=== PATIENT | male | born 1930 | race Caucasian/White ===

== ENCOUNTER 2017-06-09 17:58 | Inpatient (IN) | payer OTHER ==
[2017-06-09 18:37] LABS: Absolute Lymphocytes (CBC) 0.7 K/uL (0.7-4.9); Absolute Monocytes 0.9 K/uL (0.1-1.3); Absolute Neutrophil 4.8 K/uL (1.8-8.0); Basophils % 0.7 % (0-1.3); Eosinophils % 4.9 % (0-4.4); Hematocrit 41.9 % (39.6-49.0); MCH 31.1 pg (27.0-35.0); MCV 93.3 fL (80-100); MPV 9.9 fL (7.6-11.3); Monocytes % 12.8 % (3.3-12.3); RBC Red Blood Cell Count 4.49 M/uL (4.33-5.43)
[2017-06-09 18:38] LABS: Protime INR 1.23
[2017-06-09] MEDS ORDERED: NA CHLORIDE 0.9% 1,000 ML ONE ×2 (18:38→19:58)
[2017-06-09 18:50] LABS: Potassium 3.8 mEq/L (3.6-5.0)
[2017-06-09 18:56] LABS: Albumin 3.4 g/dL (3.2-5.5); Bilirubin Direct 0.3 mg/dL (0-0.2); Magnesium 2.8 mg/dL (1.8-2.5); Protein, Total 6.6 g/dL (6.0-8.3)
[2017-06-09 18:59] LABS: CKMB Creatine Kinase MB 3.5 ng/ml (0.3-4.0)
[2017-06-09] MEDS ORDERED: NALOXONE 0.4 MG/ML VIAL ONE (19:01)
[2017-06-09 19:28] LABS: Arterial Blood Carboxyhemoglob 1.2 % (0-1.5); Blood Gas Oxyhemoglobin 94.3 % (94-97); Blood O2 Saturation 95.8 % (92-98.5)
[2017-06-09 19:50] LABS: C-Reactive Protein 132.4 mg/L (<10.0)
[2017-06-09] MEDS ORDERED: LIDOCAINE VISCOUS 2% SOLN 15 ML UDC ONE (19:51)
--- NOTE | 2017-06-09 19:56 | RAD REPORT ---
EXAM DESCRIPTION: RAD - Chest Single View - 06/09/2017 7:41 pm CLINICAL HISTORY: Cough, shortness of breath COMPARISON: March 2016 TECHNIQUE: AP portable chest image was obtained 1930 hours . FINDINGS: Interstitial and alveolar opacification are present in the lower right lung field with min imal opacification in the right upper lobe. Upper and mid left lung field is clear. Left base is limi fermin in assessment. No vascular engorgement. Heart size is prominent. This is in part due to differenc es in technique. Defibrillator is in place. Trachea is midline. No pneumothorax. Small pleural effusi ons could be present. No gross bony abnormality seen. No acute aortic findings suspected. IMPRESSION: Moderate right brace in mild right upper lobe opacification. Pneumonia is favored over f ailure or volume overload.
[2017-06-09] MEDS ORDERED: NA CHLORIDE 0.9% 50 ML IV ONE (19:58)
[2017-06-09] MEDS ORDERED: HYDROCORTISONE SUC 100 MG INJ ONE (19:58)
[2017-06-09] MEDS ORDERED: THIAMINE 200 MG/2 ML INJ ONE (19:58)
[2017-06-09] MEDS ORDERED: NA CHLORIDE 0.9% 500 ML ONE (19:58)
[2017-06-09] MEDS ORDERED: FAMOTIDINE 20 MG/2 ML VIAL IV ONE (19:58)
[2017-06-09] MEDS ORDERED: CEFEPIME 1 GM/100 ML BAG IV ONE ×2 (19:59→20:36)
--- NOTE | 2017-06-09 20:08 | EDPHYS ---
Physician Documentation [facility] Name: Jaden Kidd Age: 87 yrs Sex: Male : 1930 Arrival Date: 06/09/2017 Time: 17:59 Bed 5 Private MD: Autumn Vera C ED Physician Sathish Chaney HPI: 06/09 19:22 This 87 yrs old Male presents to ER via Wheelchair with complaints of sherrill Dehydration. 19:22 WEAKNESS AND ANOREXIA. The patient presents with trouble concentrating. Onset: The sherrill symptoms/episode began/occurred 2 day(s) ago. Possible causes: drug use, narcotics, sepsis, unknown. Associated signs and symptoms: Pertinent positives: agitation, back pain, combativeness, confusion, lightheadedness. Current symptoms: In the emergency department the patient's symptoms are unchanged from the initial presentation. Patient's baseline: Neuro: alert and fully oriented, Motor: no deficits, Ambulation: walks without assistance. Severity of symptoms: At their worst the symptoms were mild moderate in the emergency department the symptoms are unchanged. Historical: - Allergies: 18:20 PENICILLINS; ss 18:20 Iodine; ss - Home Meds: 18:26 furosemide 80 mg Oral tab 1 tab once daily [Active]; metolazone 5 mg oral tab 1 tab ss once weekly [Active]; simvastatin 20 mg Oral tab 1 tab once daily [Active]; Xarelto 15 mg oral tab nightly [Active]; 18:27 Entresto 49-51 mg oral tab 1 tab 2 times per day [Active]; gabapentin 800 mg oral tab 1 ss tab 3 times per day [Active]; tramadol 50 mg Oral tab 1 tab every 6 hours [Active]; hydrocodone [Active]; - PMHx: 18:20 Myocardial infarction; CHF; macular degeneration; ss - PSHx: 18:20 Hernia repair; cardiac stent; prostatectomy; ss - Immunization history:: Adult Immunizations up to date. - Social history:: Smoking status: Patient/guardian denies using tobacco, the patient reports quitting approximately 20 years ago. - Family history:: not pertinent. ROS: 19:22 Eyes: Negative for injury, pain, redness, and discharge, ENT: Negative for injury, sherrill pain, and discharge, Neck: Negative for injury, pain, and swelling, Cardiovascular: Negative for chest pain, palpitations, and edema, : Negative for injury, bleeding, discharge, and swelling, MS/Extremity: Negative for injury and deformity, Skin: Negative for injury, rash, and discoloration, Psych: Negative for depression, anxiety, suicide ideation, homicidal ideation, and hallucinations, Allergy/Immunology: Negative for hives, rash, and allergies, Endocrine: Negative for neck swelling, polydipsia, polyuria, polyphagia, and marked weight changes. 19:22 Respiratory: Positive for cough, shortness of breath. 19:22 Abdomen/GI: Positive for nausea, anorexia. 19:22 Back: Positive for pain at rest, pain with movement. Exam: 19:22 Constitutional: This is a well developed, well nourished patient who is awake, alert, sherrill and in no acute distress. Head/Face: Normocephalic, atraumatic. Eyes: Pupils equal round and reactive to light, extra-ocular motions intact. Lids and lashes normal. Conjunctiva and sclera are non-icteric and not injected. Cornea within normal limits. Periorbital areas with no swelling, redness, or edema. ENT: Nares patent. No nasal discharge, no septal abnormalities noted. Tympanic membranes are normal and external auditory canals are clear. Oropharynx with no redness, swelling, or masses, exudates, or evidence of obstruction, uvula midline. Mucous membranes moist. Neck: Trachea midline, no thyromegaly or masses palpated, and no cervical lymphadenopathy. Supple, full range of motion without nuchal rigidity, or vertebral point tenderness. No Meningismus. Chest/axilla: Normal chest wall appearance and motion. Nontender with no deformity. No lesions are appreciated. Abdomen/GI: Soft, non-tender, with normal bowel sounds. No distension or tympany. No guarding or rebound. No evidence of tenderness throughout. Back: No spinal tenderness. No costovertebral tenderness. Full range of motion. Male : Normal genitalia with no discharge or lesions. Skin: Warm, dry with normal turgor. Normal color with no rashes, no lesions, and no evidence of cellulitis. MS/ Extremity: Pulses equal, no cyanosis. Neurovascular intact. Full, normal range of motion. Psych: Awake, alert, with orientation to person, place and time. Behavior, mood, and affect are within normal limits. 19:22 Cardiovascular: Rate: normal, Rhythm: irregular, Pulses: Pulses are 3+ in bilateral radial, brachial, femoral, popliteal, posterior tibial and and dorsalis pedis arteries.. 19:22 Respiratory: mild respiratory distress is noted, Respirations: labored breathing, that is mild, Breath sounds: decreased breath sounds, that are mild, Respiratory rate: 24 Vital Signs: 18:05 BP 82 / 43; Pulse 69; Resp 19; Temp 97.6(O); Pulse Ox 89% on R/A; Weight 83.91 kg; sv Height 5 ft. 8 in. (172.72 cm); Pain 0/10; 18:15 BP 78 / 48; Pulse 74; Resp 15; Pulse Ox 91% ; sv 18:22 Pulse Ox 91% on R/A; sv 18:26 BP 80 / 45; Pulse 71; Resp 19; Pulse Ox 93% on 3.5 lpm NC; sv 18:38 Pulse Ox 92% on 35% Venturi mask; sv 18:40 Pulse Ox 91% on 40% Venturi mask; sv 18:41 BP 94 / 55; Pulse 66; Resp 21; Pulse Ox 99% on 40% Venturi mask; sv 20:25 BP 122 / 55; Pulse 70; Resp 24; Pulse Ox 100% on Nebulizer Mask; ak1 20:25 BP 92 / 58; Pulse 70; Resp 20; Temp 98.4(A); Pulse Ox 100% on Nebulizer Mask; ak1 21:10 BP 95 / 46; Pulse 70; Resp 20; Pulse Ox 94% on 10% Venturi mask; ak1 21:39 BP 106 / 72; Pulse 69; Resp 20; Temp 98.4(A); Pulse Ox 94% on 10% Venturi mask40%; Pain ak1 0/10; 18:05 Body Mass Index 28.13 (83.91 kg, 172.72 cm) sv 18:[address] Beck of vitals. NS 1 L bolus order received. Dr Beck informed of hx of sv CHF. 18:[address] on O \T\ 3.5 L per NC. O 2 sat up to 93%. sv MDM: 18:20 Patient medically screened. gs 19:12 Patient medically screened. sherrill 19:27 Data reviewed: vital signs, nurses notes, lab test result(s), EKG, radiologic studies, sherrill CT scan, plain films. 06/09 18:20 Order name: Basic Metabolic Panel; Complete Time: 19: 06/09 18:20 Order name: BNP; Complete Time: 19: 06/09 18:20 Order name: CBC with Diff; Complete Time: : 06/09 18:20 Order name: Ckmb; Complete Time: : 06/09 18:20 Order name: CPK; Complete Time: : 06/09 18:20 Order name: LFT's; Complete Time: : 06/09 18:20 Order name: Magnesium; Complete Time: : 06/09 18:20 Order name: PT-INR; Complete Time: : 06/09 18:20 Order name: Troponin (emerg Dept Use Only); Complete Time: : 06/09 19:06 Order name: ABG; Complete Time: 20: 06/09 19:21 Order name: Amylase, Serum; Complete Time: 20: [facility] 06/09 19:21 Order name: Blood Culture Adult (2) [facility] 06/09 19:21 Order name: C-Reactive Protein; Complete Time: 20:01 [facility] 06/09 19:21 Order name: Lactate [facility] 06/09 18:20 Order name: CT Traumagram (Head C Spine CAP wo con) 06/09 19:21 Order name: Lipase; Complete Time: 20:01 [facility] 06/09 19:21 Order name: Procalcitonin; Complete Time: 20:01 [facility] 06/09 19:21 Order name: Ptt, Activated; Complete Time: 20:01 [facility] 06/09 19:21 Order name: Sed Rate; Complete Time: 20:01 [facility] 06/09 19:21 Order name: Chest Single View XRAY; Complete Time: 20:01 [facility] 06/09 20:51 Order name: Urine Dipstick--Ancillary (enter results) cb2 06/09 20:57 Order name: Urine Dipstick-Ancillary EDMS 06/09 18:20 Order name: EKG; Complete Time: 18:20 06/09 18:20 Order name: Cardiac monitoring; Complete Time: 18:47 06/09 18:20 Order name: EKG - Nurse/Tech; Complete Time: 18:47 06/09 18:20 Order name: IV Saline Lock; Complete Time: 18:47 06/09 18:20 Order name: Labs collected and sent; Complete Time: 18:47 06/09 18:20 Order name: O2 Per Protocol; Complete Time: 18:47 06/09 18:20 Order name: O2 Sat Monitoring; Complete Time: 18:47 06/09 18:20 Order name: Urine Dipstick-Ancillary (obtain specimen); Complete Time: 20:51 06/09 19:06 Order name: Burton; Complete Time: 20:04 06/09 19:21 Order name: Accucheck; Complete Time: 19:24 [facility] 06/09 19:21 Order name: IV Saline Lock - Large Bore; Complete Time: 19:22 [facility] 06/09 20:16 Order name: CONS Physician Consult EDMS 06/09 20:16 Order name: CONS Physician Consult EDMS Administered Medications: Discontinued: NS 0.9% 1000 ml IV at 1 bolus Per protocol; 1000 mL bolus 18:22 Drug: NS 0.9% 1000 ml Route: IV; Rate: 1 bolus; Site: left forearm; sv 19:17 Follow up: IV Status: Completed infusion ak1 18:44 Drug: NARcan 0.4 mg Route: IVP; Site: right forearm; sv 19:16 Follow up: Response: No adverse reaction; No adverse reactionpt alert and talking ak1 19:36 Drug: Viscous Lidocaine Liquid (4 %) 5 ml Route: Mucous Membrane; ak1 19:52 Drug: Thiamine 100 mg Route: IV; Rate: bolus; Site: left antecubital; ak1 20:02 Follow up: Rate change bolus ak1 20:39 Follow up: IV Status: Completed infusion ak1 19:53 Drug: Solu-CORTEF 100 mg Route: IVP; Site: left antecubital; ak1 20:02 Follow up: Response: No adverse reaction ak1 19:53 Drug: Pepcid 20 mg Route: IVP; Site: left antecubital; ak1 20:02 Follow up: Response: No adverse reaction ak1 19:53 Drug: NS 0.9% 1000 ml Route: IV; Rate: 1 bolus; Site: left antecubital; ak1 22:21 Follow up: IV Status: Order to discontinue infusion ak1 20:39 Drug: NS 0.9% 1000 ml Route: IV; Rate: 125 ml/hr; Site: left antecubital; ak1 21:37 Follow up: IV Status: Infusion continued upon admission ak1 :39 Drug: Xopenex 1.25 mg Route: Inhalation; ak1 21: Follow up: Response: No adverse reaction ak1 20:39 Drug: AtroVENT Aerosol 0.5 mg Route: Inhalation; ak1 21:02 Follow up: Response: No adverse reaction ak1 20:40 Drug: Cefepime 1 grams Route: IVPB; Rate: 200 ml/hr; Infused Over: 30 mins; Site: left ak1 antecubital; 21:08 Follow up: IV Status: Completed infusion ak1 20:40 Drug: Clindamycin 900 mg Route: IVPB; Infused Over: 30 mins; Site: right forearm; ak1 :37 Follow up: IV Status: Completed infusion ak1 20:40 Drug: Cefepime 1 grams Route: IVPB; Rate: 200 ml/hr; Infused Over: 30 mins; Site: left [facility] antecubital; 21:07 Follow up: IV Status: Completed infusion ak1 Point of Care Testing: Blood Glucose: 18:45 Blood Glucose: 124 mg/dL; sv Ranges: Critical Glucose Levels:Adult <50 mg/dl or >400 mg/dl <40 mg/dl or >180 mg/dl Disposition: 06/09/17 20:07 Hospitalization ordered by Leandro Pickett for Inpatient Admission. Preliminary diagnosis are Pneumonia due to other specified bacteria, Hypotension, Acute kidney failure, Cardiomegaly. - Bed requested for Intensive Care Unit. - Status is Inpatient Admission. ea - Condition is Serious. - Problem is new. - Symptoms are unchanged. UTI on Admission? No Signatures: Dispatcher [employer] Franny Rojas RN RN sv Webb, Martha, RN RN mw Anderson, Corey, MD MD cha Smirch, Shelby, RN RN ss Krenek, Amber, RN RN ak1 Lora Tipton RN RN ea Starr, Gregory, MD MD
--- NOTE | 2017-06-09 20:08 | ER ---
Nurse's Notes [facility] Name: Jaden Kidd Age: 87 yrs Sex: Male : 1930 Arrival Date: 06/09/2017 Time: 17:59 Bed 5 Private MD: Autumn Vera C Diagnosis: Pneumonia due to other specified bacteria;Hypotension;Acute kidney failure;Cardiomegaly Presentation: 06/09 18:00 Presenting complaint: Patient states: Decreased appetite, general weakness and overall ss not feeling well x 3 days. Transition of care: patient was not received from another setting of care. Onset of symptoms was June 06, 2017. Care prior to arrival: None. 18:00 Method Of Arrival: Wheelchair ss 18:00 Acuity: YUDI 2 ss Triage Assessment: 18:00 General: Appears uncomfortable, slender, Behavior is cooperative, drowsy, lethargic. sv Pain: Denies pain. EENT: Oral mucosa is dry. Neuro: Level of Consciousness is obeys commands, confused, lethargic, Oriented to person, place. Cardiovascular: Patient's skin is warm and dry. Pulses are 3+ in right radial artery and left radial artery Rhythm is paced. Cardiovascular: Denies chest pain. Respiratory: Airway is patent Respiratory effort is even, relaxed, Respiratory pattern is regular, symmetrical, Denies shortness of breath. GI: No signs and/or symptoms were reported involving the gastrointestinal system. : No signs and/or symptoms were reported regarding the genitourinary system. Derm: Skin is intact, Skin is dry, Skin is normal, Skin temperature is cool. Historical: - Allergies: 18:20 PENICILLINS; ss 18:20 Iodine; ss - Home Meds: 18:26 furosemide 80 mg Oral tab 1 tab once daily [Active]; metolazone 5 mg oral tab 1 tab ss once weekly [Active]; simvastatin 20 mg Oral tab 1 tab once daily [Active]; Xarelto 15 mg oral tab nightly [Active]; 18:27 Entresto 49-51 mg oral tab 1 tab 2 times per day [Active]; gabapentin 800 mg oral tab 1 ss tab 3 times per day [Active]; tramadol 50 mg Oral tab 1 tab every 6 hours [Active]; hydrocodone [Active]; - PMHx: 18:20 Myocardial infarction; CHF; macular degeneration; ss - PSHx: 18:20 Hernia repair; cardiac stent; prostatectomy; ss - Immunization history:: Adult Immunizations up to date. - Social history:: Smoking status: Patient/guardian denies using tobacco, the patient reports quitting approximately 20 years ago. - Family history:: not pertinent. Screenin:51 Abuse screen: Denies threats or abuse. Denies injuries from another. Nutritional sv screening: No deficits noted. Tuberculosis screening: No symptoms or risk factors identified. Fall Risk None identified. Assessment: 18:22 Reassessment: Pt placed in Trendelenburg. sv 18:55 General: Appears in no apparent distress. uncomfortable, Behavior is cooperative, sv agitated. Pain: Complains of pain in back Pain currently is 8 out of 10 on a pain scale. Neuro: Level of Consciousness is awake, alert, obeys commands, Oriented to person, place, time, situation. Cardiovascular: Patient's skin is warm and dry. Respiratory: Respiratory effort is even, unlabored, Respiratory pattern is symmetrical, tachypnea. 19:17 Reassessment: Patient appears in no apparent distress at this time. No changes from ak1 previously documented assessment. pt continues to be agitated due to lower back pain. 20:59 Reassessment: Patient appears in no apparent distress at this time. pt returned from CT ak1 more comfortable, not restless and moving his legs. pt and family informed of need for admission. pt neb treatment completed and pt placed back on venti mask at 40%. pt resp even and unlabored. Dr. Torres at bedside. will continue to monitor. Vital Signs: 18:05 BP 82 / 43; Pulse 69; Resp 19; Temp 97.6(O); Pulse Ox 89% on R/A; Weight 83.91 kg; sv Height 5 ft. 8 in. (172.72 cm); Pain 0/10; 18:15 BP 78 / 48; Pulse 74; Resp 15; Pulse Ox 91% ; sv 18:22 Pulse Ox 91% on R/A; sv 18:26 BP 80 / 45; Pulse 71; Resp 19; Pulse Ox 93% on 3.5 lpm NC; sv 18:38 Pulse Ox 92% on 35% Venturi mask; sv 18:40 Pulse Ox 91% on 40% Venturi mask; sv 18:41 BP 94 / 55; Pulse 66; Resp 21; Pulse Ox 99% on 40% Venturi mask; sv 20:25 BP 122 / 55; Pulse 70; Resp 24; Pulse Ox 100% on Nebulizer Mask; ak1 20:25 BP 92 / 58; Pulse 70; Resp 20; Temp 98.4(A); Pulse Ox 100% on Nebulizer Mask; ak1 21:10 BP 95 / 46; Pulse 70; Resp 20; Pulse Ox 94% on 10% Venturi mask; ak1 21:39 BP 106 / 72; Pulse 69; Resp 20; Temp 98.4(A); Pulse Ox 94% on 10% Venturi mask40%; Pain ak1 0/10; 18:05 Body Mass Index 28.13 (83.91 kg, 172.72 cm) sv 18:[address] Beck of vitals. NS 1 L bolus order received. Dr Beck informed of hx of sv CHF. 18:[address] on O \T\ 3.5 L per NC. O 2 sat up to 93%. sv ED Course: 17:59 Patient arrived in ED. as 17:59 Autumn Vera MD is Private Physician. as 18:05 Franny Hernandez, CHRISTIAN is Primary Nurse. sv 18:05 residential monitor on. Pulse ox on. NIBP on. sv 18:15 Initial lab(s) drawn, by ga, sent to lab. Inserted saline lock: 20 gauge in left sv forearm, using aseptic technique. Blood collected. Flushed left forearm with 5 ml normal saline. 18:17 Triage completed. ss 18:20 Lam Beck MD is Attending Physician. gs 18:20 Arm band placed on right wrist. ss 18:25 Inserted saline lock: 18 gauge in right forearm, using aseptic technique. Flushed right sv forearm with 5 ml normal saline. 18:30 Patient has correct armband on for positive identification. Placed in gown. Bed in low sv position. Call light in reach. Side rails up X2. Adult w/ patient. 19:02 Notified ED physician of other no ERP signed up for pt care at this time. C. Page BLOWING ENGINEER ak1 stated he was not going to care for pt that on coming ERP would sign up and give orders. 19:05 Report given to Robe GONZALES and Lora RN. sv 19:06 Primary Nurse role handed off by Franny Hernandez, CHRISTIAN sv 19:12 Sathish Chaney MD is Attending Physician. sherrill 19:38 X-ray completed. Portable x-ray completed in exam room. Patient tolerated procedure ml well. 19:39 Chest Single View XRAY In Process Unspecified. EDMS 19:52 Robe Palma RN is Primary Nurse. ak1 20:00 First set of blood cultures drawn by ga. cb2 20:05 Autumn Vera MD is Hospitalizing Provider. sherrill 20:05 Burton cath inserted, using sterile technique, 16 Fr., by ga, balloon inflated, to cb2 gravity drainage. 20:06 Leandro Pickett MD is Hospitalizing Provider. sherrill 20:14 CT Traumagram (Head C Spine CAP wo con) In Process Unspecified. EDMS 20:14 CT completed. Patient tolerated procedure well. Patient moved to CT via stretcher. nj Patient moved back from CT. 20:34 Second set of blood cultures drawn by ED staff. ak1 20:41 No provider procedures requiring assistance completed. Patient admitted, IV remains in ak1 place. 20:52 Urine collected: Burton catheter specimen, robe colored. cb2 Administered Medications: Discontinued: NS 0.9% 1000 ml IV at 1 bolus Per protocol; 1000 mL bolus 18:22 Drug: NS 0.9% 1000 ml Route: IV; Rate: 1 bolus; Site: left forearm; sv 19:17 Follow up: IV Status: Completed infusion ak1 18:44 Drug: NARcan 0.4 mg Route: IVP; Site: right forearm; sv 19:16 Follow up: Response: No adverse reaction; No adverse reactionpt alert and talking ak1 19:36 Drug: Viscous Lidocaine Liquid (4 %) 5 ml Route: Mucous Membrane; ak1 19:52 Drug: Thiamine 100 mg Route: IV; Rate: bolus; Site: left antecubital; ak1 20:02 Follow up: Rate change bolus ak1 20:39 Follow up: IV Status: Completed infusion ak1 19:53 Drug: Solu-CORTEF 100 mg Route: IVP; Site: left antecubital; ak1 20:02 Follow up: Response: No adverse reaction ak1 19:53 Drug: Pepcid 20 mg Route: IVP; Site: left antecubital; ak1 20:02 Follow up: Response: No adverse reaction ak1 19:53 Drug: NS 0.9% 1000 ml Route: IV; Rate: 1 bolus; Site: left antecubital; ak1 22:21 Follow up: IV Status: Order to discontinue infusion ak1 20:39 Drug: NS 0.9% 1000 ml Route: IV; Rate: 125 ml/hr; Site: left antecubital; ak1 21:37 Follow up: IV Status: Infusion continued upon admission ak1 20:39 Drug: Xopenex 1.25 mg Route: Inhalation; ak1 21:02 Follow up: Response: No adverse reaction ak1 20:39 Drug: AtroVENT Aerosol 0.5 mg Route: Inhalation; ak1 21:02 Follow up: Response: No adverse reaction ak1 20:40 Drug: Cefepime 1 grams Route: IVPB; Rate: 200 ml/hr; Infused Over: 30 mins; Site: left ak1 antecubital; 21:08 Follow up: IV Status: Completed infusion ak1 20:40 Drug: Clindamycin 900 mg Route: IVPB; Infused Over: 30 mins; Site: right forearm; ak1 21:37 Follow up: IV Status: Completed infusion ak1 20:40 Drug: Cefepime 1 grams Route: IVPB; Rate: 200 ml/hr; Infused Over: 30 mins; Site: left ak1 antecubital; 21:07 Follow up: IV Status: Completed infusion ak1 Point of Care Testing: Blood Glucose: 18:45 Blood Glucose: 124 mg/dL; sv Ranges: Outcome: 20:07 Decision to Hospitalize by Provider. sherrill 20:41 Admitted to ICU accompanied by nurse, accompanied by tech, via stretcher, room ICU 2, ak with oxygen, on monitor, with chart. 20:41 Condition: stable 20:41 Instructed on the need for admit. 22:07 Patient left the ED. ea Signatures: Dispatcher [employer] EDFranny Jaquez RN RN sv Anderson, Corey, MD MD cha Martinez, Amelia as Lopez, Melissa ml Smirch, Shelby, RN RN ss Krenek, Amber, RN RN ak1 Stevan Gurrola Christian cb2 Antunez, Elena, RN RN ea Starr, Gregory, MD MD gs Corrections: (The following items were deleted from the chart) 18:32 18:20 BP 82 / 43; Pulse 69bpm; Resp 19bpm; Pulse Ox 89% RA; Temp 97.6F Oral; 83.91 kg; sv Height 5 ft. 8 in.; BMI: 28.1; Pain 0/10; ss
[2017-06-09] MEDS ORDERED: LEVALBUTEROL 1.25 MG/3 ML NEB ONE (20:26)
[2017-06-09] MEDS ORDERED: CLINDAMYCIN 900MG/D5W 900 MG/50 ML BAG IV ONE (20:26)
[2017-06-09] MEDS ORDERED: IPRATROPIUM BROM 0.5MG/2.5ML ONE (20:26)
--- NOTE | 2017-06-09 20:46 | RAD REPORT ---
EXAM DESCRIPTION: CT - Head C Spine Cap Wo Con - 06/09/2017 8:14 pm CLINICAL HISTORY: Fall, altered mental status, head, neck, chest and abdomen pain COMPARISON: CT lumbar spine January 2016 TECHNIQUE: Axial [address] head images were obtained. Axial [address] cervical spine images were obtain ed with sagittal and coronal reconstruction images reviewed. Axial 5 mm images of the chest, abdomen and pelvis were obtained. All CT scans are performed using dose optimization technique as appropriate and may include automated exposure control or mA/KV adjustment according to patient size. FINDINGS: No intracranial hemorrhage, mass or edema. No midline shift or abnormal fluid collection. Mastoid air cells and paranasal sinuses are clear. No skull fracture. Patient has advanced atrophy a nd chronic ischemic change. 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 Ventricular size is in propor tion. Arterial and physiologic calcifications are present. Cervical bodies are normal in height and alignment. No fracture or acute bone finding.Advanced degene rative changes are present at the dens C1 level. C5-6 and C6-7 disc and endplate degenerative changes are present.No prevertebral soft tissue thickening or paraspinal mass.Central canal detail is inhere ntly limited on CT imaging. No pneumothorax or pleural fluid collection. Interstitial and alveolar opacities are present mild in degree in the posterior right upper lobe. Moderate interstitial and alveolar opacification is present in the right lower lobe with the base as well is in the posterior inferior right middle lobe. Minima l stranding is seen in the medial aspect of the left base. There is bronchial wall thickening present . No endobronchial lesions seen. No mediastinal hematoma and the aorta and pulmonary arteries are unremarkable. No chest will mass or abnormal axillary finding. No displaced rib fracture or other significant bony finding. No pericardi al thickening or effusion. CT abdomen and pelvis show no injury to solid abdominal viscera. Gallbladder and biliary tree are unr emarkable. Gallstones can be occult. No free air, free fluid or abnormal stranding. No mass or bulky lymphadenopathy. A small fat only periumbilical hernia is present. No hydronephrosis. Renal function cannot be assessed on noncontrast imaging. Urinary bladder is contracted. Patient has diverticulosis in the sigmoid but no diverticulitis. Disc and bony degenerative changes are present. No pathologic bone process. No traumatic injury seen. Prominent calcifications of the aorta with distal aortic tortuosity. Heart size is upper normal with no pericardial effusion. Pacemaker wires are in place. Infrarenal abdominal aortic aneurysm is presen t a 3.5 cm. Very dense iliac arterial calcifications are present. IMPRESSION: Interstitial and alveolar lung parenchymal opacification favoring pneumonia over failure or volume overload. No traumatic injury to the chest. Advanced atrophy and chronic ischemic change. No acute intracranial finding. Cervical spine degenerative change present as detailed. No acute findings seen. Abdominal aortic aneurysm 3.5 cm in size. No significant CT Abdomen and Pelvis finding.
[2017-06-09 20:57] LABS: Urine Blood 2+ (NEG); Urine Glucose NEGATIVE (NEG); Urine Protein 1+ (NEG); Urine Specific Gravity 1.015 (1.005-1.030); Urine pH 6.5 (5.0-7.0)
[2017-06-09] MEDS ORDERED: ACETAMINOPHEN 500 MG TAB PO PRN (21:15)
[2017-06-09] MEDS ORDERED: ONDANSETRON 4 MG/2 ML VIAL IV PRN (21:15)
[2017-06-09] MEDS ORDERED: NA CHLORIDE 0.9% 1,000 ML IV SCH (22:00)
[2017-06-10] MEDS: NA CHLORIDE 0.9% 1,000 ML IV SCH ×2 (01:54→12:06)
[2017-06-10] MEDS: IPRATROPIUM BROM 0.5MG/2.5ML NEB SCH ×4 (02:31→19:18)
[2017-06-10 05:47] LABS: Absolute Lymphocytes (CBC) 0.4 K/uL (0.7-4.9); Absolute Monocytes 0.2 K/uL (0.1-1.3); Absolute Neutrophil 5.6 K/uL (1.8-8.0); Basophils % 0.2 % (0-1.3); Eosinophils % 0.1 % (0-4.4); Hematocrit 40.1 % (39.6-49.0); Lymphocytes % 6.7 % (15.3-44.8); MCH 30.9 pg (27.0-35.0); MCV 94.2 fL (80-100); MPV 10.3 fL (7.6-11.3); Monocytes % 3.5 % (3.3-12.3); RBC Red Blood Cell Count 4.26 M/uL (4.33-5.43)
[2017-06-10 05:48] LABS: Protime INR 1.21
[2017-06-10 06:12] LABS: Albumin 2.9 g/dL (3.2-5.5); Magnesium 2.6 mg/dL (1.8-2.5); Phosphorus 4.6 mg/dL (2.5-4.3); Potassium 3.5 mEq/L (3.6-5.0); Protein, Total 5.4 g/dL (6.0-8.3)
[2017-06-10 07:43] LABS: Blood Morphology Comment NOT SEEN (NOT SEEN); Platelet Estimate ADEQ; Urine White Blood Cell Casts OK
--- NOTE | 2017-06-10 07:56 | P.HP ---
Certification for Inpatient Patient admitted to: Inpatient With expected LOS: >2 Midnights Patient will require the following post-hospital care: None Practitioner: I am a practitioner with admitting privileges, knowledge of patient current condition, hospital course, and medical plan of care. Services: Services provided to patient in accordance with Admission requirements found in Title 42 Section 412.3 of the Code of Federal Regulations Patient History Date of Service: 06/09/17 Reason for admission: Acute kidney injury and hypotension History of Present Illness: Patient is an 87-year-old gentleman who came into the hospital after repetitive falling. In the emergency room patient was found have acute kidney injury and hypotension. Patient has difficulty hearing but is able to respond to most of the questions. Some questions he has a hard time understanding because of his hearing. Patient has a history of congestive heart failure and has been on diuretics. This is probably resulted and his acute kidney injury. Will need to monitor his input and output and we will monitor his fluid intake. Will get Nephrology consultation as well. Patient's workup also revealed that he had a infiltrate in his lungs. He will be treated with antibiotics for a pneumonic process. Will get echocardiogram from prior studies. Allergies Penicillins Allergy (Verified 02/05/14 11:01) Itching iodine Adverse Reaction (Verified 02/05/14 11:01) Itching Home Medications: Carvedilol [Carvedilol] 1 tab PO BID 06/09/17 Diclofenac Sodium [Voltaren] 1 boubacar TOP BID 06/09/17 Gabapentin [Gabapentin] 1 tab PO QID 06/09/17 Pantoprazole Sodium [Protonix] 1 tab PO DAILY 06/09/17 Rivaroxaban [Xarelto*] 1 tab PO DAILY 06/09/17 Sacubitril/Valsartan [Entresto 49 mg-51 mg Tablet] 1 tab PO BID 06/09/17 Tiotropium [place] [Spiriva Respimat] 2 puff PO DAILY 06/09/17 Furosemide [Furosemide] 2 tab PO DAILY 06/10/17 Hydrocodone/Acetaminophen [Hydrocodone-Acetamin 10-325 mg] 1 tab PO QIDP PRN Metolazone [Metolazone] 1 tab PO Q7D 06/10/17 Simvastatin [Simvastatin] 1 tab PO BEDTIME 06/10/17 traMADol HCL [Ultram*] 1 tab PO Q6HP PRN 06/10/17 - Past Medical/Surgical History Has patient received pneumonia vaccine in the past: Yes Diabetic: No -: ID -: CHF -: macular generate disease -: hyperlipidemia -: chronic pain -: cardiac stents -: hernia repair -: pacemaker -: prostatectomy - Family History Father Family History: Reviewed- Non-Contributory - Social History Smoking Status: Never smoker Alcohol use: No CD- Drugs: No Caffeine use: No Place of Residence: Home Review of Systems 10-point ROS is otherwise unremarkable Physical Examination - Vital Signs Temperature: 97.0 F Blood Pressure: 100/66 Pulse: 62 Respirations: 11 Pulse Ox (%): 97 - Physical Exam General: Alert, In no apparent distress, Oriented x3 HEENT: Atraumatic, PERRLA, Mucous membr. moist/pink, EOMI, Sclerae nonicteric Neck: Supple, 2+ carotid pulse no bruit, No LAD, Without JVD or thyroid abnormality Respiratory: Diminished, Rhonchi/gurgles Cardiovascular: Regular rate/rhythm, Normal S1 S2, Systolic murmur Gastrointestinal: Normal bowel sounds, Soft and benign, Non-distended, No tenderness Musculoskeletal: No clubbing, No swelling, No tenderness Integumentary: No rashes Neurological: Normal speech, Normal tone, Sensation intact, Cranial nerves 3-12 intact, Normal affect, Abnormal gait, Abnormal strength Lymphatics: No axilla or inguinal lymphadenopathy - Studies Laboratory Data (last 24 hrs) 06/09/17 18:15: APTT 24.9 06/09/17 18:15: Amylase 59, Lipase 20 L 06/09/17 18:15: PT 14.6 H, INR 1.23 06/09/17 18:15: WBC 6.8, Hgb 14.0, Hct 41.9, Plt Count 127 L 06/09/17 18:15: B-Natriuretic Peptide 474 H 06/09/17 18:15: Sodium 142, Potassium 3.8, BUN 98 H, Creatinine 3.36 H, Glucose 130 H, Magnesium 2.8 H, Total Bilirubin 1.0, AST 30, ALT 19, Alkaline Phosphatase 69 Assessment & Plan - Problems (Diagnosis) (1) Status post fall Current Visit: Yes Status: Acute (2) Hypotension Current Visit: Yes Status: Acute (3) Pneumonia Current Visit: Yes Status: Acute (4) Acute kidney injury Current Visit: Yes Status: Acute (5) History of congestive heart failure Current Visit: Yes Status: Acute (6) History of coronary artery disease Current Visit: Yes Status: Acute - Plan Plan: 1. Continue with IV antibiotics 2. Awaiting sputum and blood culture 3. Repeat chest x-ray 4. Traumogram is pending 5. Nephrology consultation 6. Continue with nebs as needed 7. O2 per protocol 8. Continue with hydration while monitoring his input and output. Need to monitor him closely for volume overload 9. Repeat labs including CBC and renal function in a.m. 10. Review chart for echocardiogram 11. GI and DVT prophylaxis Discharge Plan: Home Plan to discharge in: Greater than 2 days - Advance Directives Does patient have a Living Will: Yes Does patient have a Durable POA for Healthcare: Yes - Code Status/Comfort Care Code Status Assessed: Yes Code Status: Full Code Critical Care: No Time Spent Managing PTS Care (In Minutes): 50
[2017-06-10] MEDS: CLINDAMYCIN INJ 600 MG in NA CHLORIDE 0.9% 50 ML IV SCH ×2 (08:43→18:55)
[2017-06-10] MEDS ORDERED: RIVAROXABAN 20 MG TABLET PO SCH (09:00)
[2017-06-10] MEDS ORDERED: ENOXAPARIN 40 MG/0.4 ML SQ SCH (09:00)
[2017-06-10] MEDS ORDERED: RIVAROXABAN 10 MG TABLET PO SCH (09:00)
[2017-06-10] MEDS: TRAMADOL HCL 50 MG TAB PO PRN ×2 (11:56→20:47)
--- NOTE | 2017-06-10 13:16 | P.CNS ---
Date of Consult: 06/10/17 Reason for Consult: JESS Requesting Physician: Batsheva Amos Chief Complaint: Acute kidney injury and hypotension History of Present Illness: Patient is an 87-year-old gentleman who came into the hospital after repetitive falling. In the emergency room patient was found have acute kidney injury and hypotension. Patient has difficulty hearing but is able to respond to most of the questions. Some questions he has a hard time understanding because of his hearing. Patient has a history of congestive heart failure and has been on diuretics. This is probably resulted and his acute kidney injury. Will need to monitor his input and output and we will monitor his fluid intake. Will get Nephrology consultation as well. Patient's workup also revealed that he had a infiltrate in his lungs. He will be treated with antibiotics for a pneumonic process. Will get echocardiogram from prior studies. 19:22 This 87 yrs old Male presents to ER via Wheelchair with complaints of sherrill Dehydration. 19:22 WEAKNESS AND ANOREXIA. The patient presents with trouble concentrating. Onset: The sherrill symptoms/episode began/occurred 2 day(s) ago. Possible causes: drug use, narcotics, sepsis, unknown. Associated signs and symptoms: Pertinent positives: agitation, back pain, combativeness, confusion, lightheadedness. Current symptoms: In the emergency department the patient's symptoms are unchanged from the initial presentation. Patient's baseline: Neuro: alert and fully oriented, Motor: no deficits, Ambulation: walks without assistance. Severity of symptoms: At their worst the symptoms were mild moderate in the emergency department the symptoms are unchanged. Allergies Penicillins Allergy (Verified 02/05/14 11:01) Itching iodine Adverse Reaction (Verified 02/05/14 11:01) Itching Home medications list reviewed: Yes Home Medications: Carvedilol [Carvedilol] 1 tab PO BID 06/09/17 Diclofenac Sodium [Voltaren] 1 boubacar TOP BID 06/09/17 Gabapentin [Gabapentin] 1 tab PO QID 06/09/17 Pantoprazole Sodium [Protonix] 1 tab PO DAILY 06/09/17 Rivaroxaban [Xarelto*] 1 tab PO DAILY 06/09/17 Sacubitril/Valsartan [Entresto 49 mg-51 mg Tablet] 1 tab PO BID 06/09/17 Tiotropium [place] [Spiriva Respimat] 2 puff PO DAILY 06/09/17 Furosemide [Furosemide] 2 tab PO DAILY 06/10/17 Hydrocodone/Acetaminophen [Hydrocodone-Acetamin 10-325 mg] 1 tab PO QIDP PRN Metolazone [Metolazone] 1 tab PO Q7D 06/10/17 Simvastatin [Simvastatin] 1 tab PO BEDTIME 06/10/17 traMADol HCL [Ultram*] 1 tab PO Q6HP PRN 06/10/17 - Past Medical/Surgical History Diabetic: No -: [place] -: CHF -: macular generate disease -: hyperlipidemia -: chronic pain -: cardiac stents -: hernia repair -: pacemaker -: prostatectomy - Family History Father Family History: Reviewed- Non-Contributory - Social History Alcohol use: No CD- Drugs: No Caffeine use: No Place of Residence: Home Review of Systems 10-point ROS is otherwise unremarkable General: Weakness, Malaise Neurological: Weakness, Confusion Physical Examination Temp Pulse Resp BP Pulse Ox 98.1 F 76 14 121/66 100 06/10/17 12:00 06/10/17 12:00 06/10/17 12:00 06/10/17 12:00 06/10/17 12:00 General: Cooperative, Confused HEENT: Atraumatic Neck: Supple Respiratory: Clear to auscultation bilaterally Cardiovascular: No edema, Regular rate/rhythm, No rubs Gastrointestinal: Soft and benign, Non-distended Musculoskeletal: No clubbing, No contractures Integumentary: No rashes, No cyanosis Neurological: Normal speech Laboratory Data (last 24 hrs) 06/09/17 18:15: APTT 24.9 06/09/17 18:15: Amylase 59, Lipase 20 L 06/09/17 18:15: PT 14.6 H, INR 1.23 06/09/17 18:15: WBC 6.8, Hgb 14.0, Hct 41.9, Plt Count 127 L 06/09/17 18:15: B-Natriuretic Peptide 474 H 06/09/17 18:15: Sodium 142, Potassium 3.8, BUN 98 H, Creatinine 3.36 H, Glucose 130 H, Magnesium 2.8 H, Total Bilirubin 1.0, AST 30, ALT 19, Alkaline Phosphatase 69 Imagings Data: EXAM DESCRIPTION: CT - Head C Spine Cap Wo Con - 06/09/2017 8:14 pm CLINICAL HISTORY: Fall, altered mental status, head, neck, chest and abdomen pain COMPARISON: CT lumbar spine January 2016 TECHNIQUE: Axial [address] head images were obtained. Axial [address] cervical spine images were obtained with sagittal and coronal reconstruction images reviewed. Axial 5 mm images of the chest, abdomen and pelvis were obtained. All CT scans are performed using dose optimization technique as appropriate and may include automated exposure control or mA/KV adjustment according to patient size. FINDINGS: No intracranial hemorrhage, mass or edema. No midline shift or abnormal fluid collection. Mastoid air cells and paranasal sinuses are clear. No skull fracture. Patient has advanced atrophy and chronic ischemic change. 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 Ventricular size is in proportion. Arterial and physiologic calcifications are present. Cervical bodies are normal in height and alignment. No fracture or acute bone finding.Advanced degenerative changes are present at the dens C1 level. C5-6 and C6-7 disc and endplate degenerative changes are present.No prevertebral soft tissue thickening or paraspinal mass.Central canal detail is inherently limited on CT imaging. No pneumothorax or pleural fluid collection. Interstitial and alveolar opacities are present mild in degree in the posterior right upper lobe. Moderate interstitial and alveolar opacification is present in the right lower lobe with the base as well is in the posterior inferior right middle lobe. Minimal stranding is seen in the medial aspect of the left base. There is bronchial wall thickening present. No endobronchial lesions seen. No mediastinal hematoma and the aorta and pulmonary arteries are unremarkable. No chest will mass or abnormal axillary finding. No displaced rib fracture or other significant bony finding. No pericardial thickening or effusion. CT abdomen and pelvis show no injury to solid abdominal viscera. Gallbladder and biliary tree are unremarkable. Gallstones can be occult. No free air, free fluid or abnormal stranding. No mass or bulky lymphadenopathy. A small fat only periumbilical hernia is present. No hydronephrosis. Renal function cannot be assessed on noncontrast imaging. Urinary bladder is contracted. Patient has diverticulosis in the sigmoid but no diverticulitis. Disc and bony degenerative changes are present. No pathologic bone process. No traumatic injury seen. Prominent calcifications of the aorta with distal aortic tortuosity. Heart size is upper normal with no pericardial effusion. Pacemaker wires are in place. Infrarenal abdominal aortic aneurysm is present a 3.5 cm. Very dense iliac arterial calcifications are present. IMPRESSION: Interstitial and alveolar lung parenchymal opacification favoring pneumonia over failure or volume overload. No traumatic injury to the chest. Advanced atrophy and chronic ischemic change. No acute intracranial finding. Cervical spine degenerative change present as detailed. No acute findings seen. Abdominal aortic aneurysm 3.5 cm in size. No significant CT Abdomen and Pelvis finding. Conclusions/Impression: A/ JESS in the setting of hypovolemia. 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 HTN complicated by hypotension in the setting of hypovolemia. Hypokalemia. DM II with CKD. Hypocalcemia. HyperPO4. Thrombocytopenia. AMS in the setting of opiates. Systolic CHF, chronic. P/ Continue current POC and Medications. IVF adjusted. Gentle hydration due to CHF. Give potassium. Start vitamin D. Do not recommend restarting diclofenac. No NSAIDs. AM labs. Daily weight. Thank you kindly for the consultation. Critical Care: Yes
[2017-06-10] MEDS ORDERED: POTASSIUM CL SA 10 MEQ TAB PO ONE (14:03)
[2017-06-10] MEDS ORDERED: HYDROCODONE/APAP 10/325 TAB PO ONE ×2 (15:21)
--- NOTE | 2017-06-10 15:30 | PN ---
Date of Progress Note: 06/10/2017 The patient is seen and examined. Chart reviewed, and case discussed with RN. History: The patient on Venti mask, doing better this morning. Had some baseline confusion secondar y to dementia. Review of Systems: Limited due to patient's medical condition. Medications: Reviewed. Physical Examination: Vital Signs: Temperature 97.3, heart rate 71, blood pressure 110/66, respirations 14, O2 saturation 99% on a Venturi mask, 12 L, with 40% FiO2. General: Awake, alert, oriented to self only, in some mild respiratory distress. Elderly male, ill- appearing. CV: S1, S2. Peripheral pulses present bilaterally. Regular rate and rhythm. Respiratory: Diminished breath sounds bilaterally. Some rhonchi. No wheezing or stridor. Gastrointestinal: Abdomen is soft, nontender, nondistended. Positive bowel sounds. Extremities: No clubbing, cyanosis, or edema. Neurologic: Nonfocal. Laboratory Data: Sodium 143, potassium 3.5, chloride 110, CO2 25, BUN 83, creatinine 2.45, glucose 1 52, lactic acid 9.1, calcium 8.4, phosphorus 4.6, magnesium 2.6, INR 1.21. WBC 6.2, H and H 13.2 and 40.1, platelets 116, neutrophils 89%. Blood cultures pending. Assessment And Plan: An 87-year-old male with: 1.Status post fall. We will continue with fall precautions and obtain PT evaluation. 2.Hypertension, improved with IV fluids. We will hold blood pressure medications for now. No use o f pressors indicated. 3.Pneumonia, right upper lobe. We will continue with IV antibiotics for possible aspiration pneumon ia. We will get speech therapy evaluation. 4.Acute kidney injury. Creatinine is improved with IV fluids. We will continue to monitor. Nephro logy has been consulted. 5.Congestive heart failure, unknown ejection fraction. 6.Coronary artery disease. [place] artery and [place]vas[place]ai heart without angina. 7.Elevated troponin level. We will follow up with cardiology's recommendations. /ELVIS Voice ID: [id number] Report ID: [id number]
[2017-06-10] MEDS: NACHLORIDE 0.45% 1,000 ML IV SCH (15:40)
[2017-06-10] MEDS ORDERED: MORPHINE 2 MG/ML SYR IV ONE (18:14)
[2017-06-10] MEDS: RIVAROXABAN 15 MG TABLET PO SCH (18:55)
[2017-06-10] MEDS: ATORVASTATIN 10 MG TAB PO SCH (20:48)
[2017-06-10] MEDS: CARVEDILOL 3.125 MG TAB PO SCH (20:48)
[2017-06-10] MEDS ORDERED: CEFEPIME 1 GM/VIAL IV SCH (21:00)
[2017-06-10] MEDS ORDERED: CEFEPIME/SWI 1gm 1 GM/10 ML SYR IV SCH (21:00)
[2017-06-10] MEDS ORDERED: HOME MED 1 EA UNK (Simvastatin [Simvastatin] 1 TAB) PO SCH (21:00)
[2017-06-10] MEDS: HYDROCODONE/APAP 10/325 TAB PO PRN (22:56)
[2017-06-11] MEDS: CLINDAMYCIN INJ 600 MG in NA CHLORIDE 0.9% 50 ML IV SCH ×2 (00:13→08:29)
[2017-06-11] MEDS: IPRATROPIUM BROM 0.5MG/2.5ML NEB SCH ×4 (01:29→19:42)
[2017-06-11] MEDS: TRAMADOL HCL 50 MG TAB PO PRN ×3 (04:17→21:26)
[2017-06-11] MEDS: HYDROCODONE/APAP 10/325 TAB PO PRN ×3 (05:46→20:11)
[2017-06-11] MEDS ORDERED: DEXAMETHASONE 10 MG/ML VIAL IV ONE (06:00)
[2017-06-11 07:26] LABS: Magnesium 2.2 mg/dL (1.8-2.5); Potassium 3.8 mEq/L (3.6-5.0)
--- NOTE | 2017-06-11 07:43 | CON ---
Date of Consultation: 06/10/[address] Amos's service on 06/09/2017. I saw the patient on 06/10/2017. Reason For Consultation: Presyncope, orthostatic hypotension, and history of congestive heart failur e. History Of Present Illness: The patient is an 87-year-old white male. He is a patient of Dr. Juan Kasper. He apparently had an episode where he fell, was very weak, has been rather anorexic and not eating well for few days, but has been taking multiple medication for his back pain including narcoti cs. His back pain has been chronic, has been severe, and after he fell, he took even more medication . Continue to take his home medication, which include Lasix, metolazone once a week, and antihyperte nsive medication, and he came into the emergency room basically very weak and hypotensive. Has been hydrated fairly well with normal saline at 100 cc an hour. No cardiac complaint, is slightly anxious and depressed overall. He denied any chest pain or any nausea or vomiting. Had some diaphoresis. Denied any palpitations. Denied PND or orthopnea. He denied pedal edema. Denied any fever or chill s or cough. Past Medical History: Include history of congestive heart failure, coronary artery disease status po st stents, macular degeneration, prostatectomy, hernia repair, defibrillator placement. Allergies: PENICILLIN, IODINE. Review of Systems: Negative. Social History: Negative. Family History: Noncontributory. Medications: His medications at home include Lasix 80 mg daily, metolazone 5 mg once a week. He is on Xarelto, Zocor 20 mg daily, Entresto 49/51 mg twice a day, gabapentin, tramadol, and hydrocodone. Physical Examination: Vital Signs: Stable. When I saw him, his pressure was 100/50, paced rhythm at 100, respiratory rate 20, afebrile. I's and O's adequate. HEENT: Negative. Neck: Supple with no bruit. Chest: Clear . Cardiac: Revealed paced rhythm. No murmurs, gallops, or rubs. Abdomen: Benign. Extremities: Reveals no clubbing, cyanosis, or edema. Diagnostic Data: His pO2 was 80, pCO2 was 34, pH was 7.47. Chest x-ray is consistent with right upp er lobe pneumonia, possibly aspiration. Initial creatinine was 3.36, repeat after hydration was 2.45 . White count was normal, hemoglobin was 13.2, platelet count is 116,000. PT and INR were adequate. Potassium was 3.8, glucose was 130. Troponin 0.09. BNP was 474. Impression And Plan: 1.Chronic systolic congestive heart failure, status post defibrillator pacemaker. This condition se ems to be stable at this point. 2.Atrial fibrillation, chronic, on Xarelto. This condition seems to be stable. 3.History of coronary artery disease, status post stents that seems to be stable. 4.Dyslipidemia, on simvastatin. 5.Back pain, on gabapentin, tramadol, and Tylenol No. 3. Mr. Kidd's main problem right now is that he has what appears to be an aspiration pneumonia. The patient has probably aspirated. He had taken Tylenol No. 3, tramadol, and multiple gabapentin for ba ck pain may have affected his overall appetite and mental status. Continue to take all his medicatio ns at home and became hypotensive. His kidney function was consistent with acute renal insufficiency secondary to dehydration. For now, I would definitely be gentle on the hydration. Discontinue his IV normal saline at 100. He has a low ejection fraction, and we will try to avoid him going into con gestive heart failure. He is able to take p.o. and I think we would focus on him having p.o. liquids rather than the IV. We should definitely hold his Lasix, hold his metolazone, and his Entresto for now. We will resume the medication depending on his creatinine and overall status. I certainly woul d not have his defibrillator checked. It has been checked recently in the office and it was adequate . In the hospital, he has had chronic atrial fibrillation, paced rhythm and occasional short runs of ventricular tachycardia like up to 3 beats that is an asymptomatic without any hemodynamic compromis e. I think the only medication we need to continue for now is the Xarelto. Certainly, the simvastat in can wait. We will continue to follow him. No further cardiac workup at this point. HILDA/ELVIS Voice ID: [id number] Report ID: [id number]
[2017-06-11] MEDS: PANTOPRAZOLE 40MG TABLET PO SCH (08:29)
[2017-06-11] MEDS: CARVEDILOL 3.125 MG TAB PO SCH ×2 (08:29→20:11)
[2017-06-11] MEDS ORDERED: POTASSIUM CL SA 10 MEQ TAB PO ONE (09:00)
--- NOTE | 2017-06-11 11:28 | PN ---
Date of Progress Note: 06/11/2017 Subjective: The patient seen and examined. Chart reviewed and case discussed with RN. The patient states, he is feeling better and wants to go home. and daughter at the bedside. Treatment plan explained, all questions answered. The patient has been able to get up and move around. Review of Systems: Negative except as above. Medications: Reviewed. Physical Examination: Vital signs: Temperature 96, heart rate 58, blood pressure 107/63, respirations 18, O2 94% on 12 L V enturi mask with 40% FiO2. General: Awake, alert, oriented x3, in some mild respiratory distress. Elderly male, somewhat ill-a ppearing. CV: S1, S2. Regular rate and rhythm. Peripheral pulses present. Respiratory: Diminished breath sounds bilaterally. No wheezing or stridor. Gastrointestinal: Abdomen is soft, nontender, nondistended. Positive bowel sounds. Extremities: No clubbing, cyanosis, or edema. Neurologic: Nonfocal. Laboratory Data: Potassium 3.8, magnesium 2.2. Assessment: An 87-year-old male with; 1.Status post fall. Continue with fall precautions and PT evaluation. 2.Hypotension, improved with IV fluids. Blood pressure medications on hold for now. The patient di d not require pressors and moved out of the ICU yesterday. 3.Right upper lobe pneumonia. Continue IV antibiotics. Possible aspiration pneumonia. Speech ther apy evaluation did not recommend any modified barium swallow study or signs of overt aspiration. 4.Acute kidney injury. Monitor creatinine. BMP is currently pending. We will continue with IV flu ids. Appreciate Dr. Fernández's input, likely secondary to acute dehydration. 5.Congestive heart failure, systolic, status post defibrillator pacemaker, stable. We will continue home medications. 6.Atrial fibrillation, chronic, on Xarelto. 7.History of coronary artery disease, [place] artery and [place] heart, status post stent, stable. 8.Dyslipidemia. Continue statins. 9.Chronic back pain, on chronic narcotics. 10.Elevated troponin level, likely secondary to acute issues including pneumonia and acute kidney in jury. No further cardiac workup. Plan: We will DC Burton catheter. Obtain a pulmonology consultation. The patient is still requiring oxygenation via Venturi mask. We will repeat chest x-ray and continue with physical therapy. SA/MODL Voice ID: [id number] Report ID: [id number]
[2017-06-11] MEDS: VANCOMYCIN 1.25 GM in NA CHLORIDE 0.9% 250 ML IVPB SCH (11:43)
[2017-06-11] MEDS: PIPER/TAZO/NS 2.25gm 2.25 GM/50 ML BAG IVPB SCH ×2 (12:40→20:12)
--- NOTE | 2017-06-11 12:51 | P.CNS ---
Date of Consult: 06/11/17 Chief Complaint: Acute kidney injury and hypotension History of Present Illness: Patient is 87 years of age well known to me with a history of obstructive airways disease possible diastolic dysfunction admitted with repetitive falls Patient is weepy depressed does not recall the events precipitating is admission he apparently became incontinent of urine this upsetting him more expiratory smith he is at his baseline with some cough and congestion he has does take diuretics at home in addition to nebulized bronchodilators denies any fever or chills [id number]. Patient was hypoxic Patient is anti coagulated Allergies Penicillins Allergy (Verified 02/05/14 11:01) Itching iodine Adverse Reaction (Verified 02/05/14 11:01) Itching Home Medications: Carvedilol [Carvedilol] 1 tab PO BID 06/09/17 Diclofenac Sodium [Voltaren] 1 boubacar TOP BID 06/09/17 Gabapentin [Gabapentin] 1 tab PO QID 06/09/17 Pantoprazole Sodium [Protonix] 1 tab PO DAILY 06/09/17 Rivaroxaban [Xarelto*] 1 tab PO DAILY 06/09/17 Sacubitril/Valsartan [Entresto 49 mg-51 mg Tablet] 1 tab PO BID 06/09/17 Tiotropium [place] [Spiriva Respimat] 2 puff PO DAILY 06/09/17 Furosemide [Furosemide] 2 tab PO DAILY 06/10/17 Hydrocodone/Acetaminophen [Hydrocodone-Acetamin 10-325 mg] 1 tab PO QIDP PRN Metolazone [Metolazone] 1 tab PO Q7D 06/10/17 Simvastatin [Simvastatin] 1 tab PO BEDTIME 06/10/17 traMADol HCL [Ultram*] 1 tab PO Q6HP PRN 06/10/17 - Past Medical/Surgical History Diabetic: No -: AR -: CHF -: macular generate disease -: hyperlipidemia -: chronic pain -: cardiac stents -: hernia repair -: pacemaker -: prostatectomy - Family History Father Family History: Reviewed- Non-Contributory - Social History Alcohol use: No CD- Drugs: No Caffeine use: No Place of Residence: Home Review of Systems General: Weakness Respiratory: Cough, Shortness of Breath Physical Examination Temp Pulse Resp BP Pulse Ox 96.0 F L 58 18 107/63 94 06/11/17 08:00 06/11/17 08:29 06/11/17 08:00 06/11/17 08:29 06/11/17 08:00 General: Alert, Oriented x3 Neck: Supple Respiratory: Friction rub Cardiovascular: Regular rate/rhythm Gastrointestinal: Normal bowel sounds, Soft and benign Musculoskeletal: No clubbing, No swelling - Problems (1) Respiratory failure Current Visit: Yes Status: Acute Plan: Patient is 87 years of age well known to me with a history of obstructive airways disease and heart failure admitted with the falls lost control of his urine he has hypoxic has home oxygen and bronchodilators compliant with his medications these reviewed confused about his medications at home patient's kidney function was worse and has now improved patient probably has a right lower lobe pneumonia visible on the x-ray and the CT scan oxygenation appears to be satisfactory PO2 is a 80 on 40% oxygen plan to titrate sat to 90% on nasal cannula oxygen continuous pulse ox continue with vancomycin and Zosyn Dc steroids patient has home oxygen blood cultures so far no growth patient is on Dat inhibitors and multiple diuretics
[2017-06-11] MEDS: NACHLORIDE 0.45% 1,000 ML IV SCH (15:00)
[2017-06-11] MEDS: GABAPENTIN 400 MG CAP PO SCH ×2 (15:54→20:11)
--- NOTE | 2017-06-11 15:59 | RAD REPORT ---
EXAM DESCRIPTION: RAD - Chest Single View - 06/11/2017 3:43 pm CLINICAL HISTORY: Pneumonia COMPARISON: 06/09/2017 FINDINGS: Portable technique limits examination quality. Ill-defined pulmonary opacification in the right lower lobe and left mid lung appear unchanged since comparative study. The heart is moderately enlarged size. Multilead pacer/defibrillator device is in place. IMPRESSION: Stable chest since 06/09/2017.
[2017-06-11] MEDS ORDERED: METHYLPREDNISOLONE 40 MG INJ IV SCH (17:00)
[2017-06-11] MEDS: RIVAROXABAN 15 MG TABLET PO SCH (17:02)
[2017-06-11] MEDS: ARFORMOTEROL TARTRATE 15 MCG/2 ML VIAL.NEB NEB SCH (19:43)
[2017-06-11] MEDS: ATORVASTATIN 10 MG TAB PO SCH (20:12)
[2017-06-12] MEDS: NACHLORIDE 0.45% 1,000 ML IV SCH (01:35)
[2017-06-12] MEDS: HYDROCODONE/APAP 10/325 TAB PO PRN ×3 (01:35→20:14)
[2017-06-12] MEDS: IPRATROPIUM BROM 0.5MG/2.5ML NEB SCH ×4 (01:37→19:24)
[2017-06-12] MEDS: PIPER/TAZO/NS 2.25gm 2.25 GM/50 ML BAG IVPB SCH ×3 (03:58→20:09)
[2017-06-12] MEDS ORDERED: DEXAMETHASONE 10 MG/ML VIAL IV ONE (06:00)
[2017-06-12] MEDS ORDERED: DEXAMETHASONE 10 MG/ML VIAL ONE (06:06)
[2017-06-12 06:09] LABS: Potassium 4.2 mEq/L (3.6-5.0)
[2017-06-12] MEDS: ARFORMOTEROL TARTRATE 15 MCG/2 ML VIAL.NEB NEB SCH ×2 (07:55→19:28)
[2017-06-12] MEDS ORDERED: VANCOMYCIN 1 GM in NA CHLORIDE 0.9% 500 ML IVPB SCH (09:00)
[2017-06-12] MEDS ORDERED: FUROSEMIDE 40 MG/4 ML VIAL IV SCH (09:00)
[2017-06-12] MEDS: GABAPENTIN 400 MG CAP PO SCH ×3 (09:20→21:39)
[2017-06-12] MEDS: PANTOPRAZOLE 40MG TABLET PO SCH (09:20)
[2017-06-12] MEDS: CARVEDILOL 3.125 MG TAB PO SCH ×2 (09:20→21:39)
--- NOTE | 2017-06-12 13:01 | EKG ---
Test Date: 2017-06-09 Test Time: 18:31:41 Certified Lactation Educator: PADMINI MEASUREMENT RESULTS: Intervals: Rate: 64 HI: QRSD: 212 QT: 534 QTc: [address] [place]: P: HI: QRS: -74 T: 98 INTERPRETIVE STATEMENTS: Ventricular-paced rhythm with occasional conducted complexes Underlying atrial fibrillation Abnormal ECG Compared to ECG 07/31/2008 15:30:21 Sinus rhythm is no longer present ventricular pacing is now present Electronically Signed On 06-12-17 13:00:50 CDT by Juan Kasper
[2017-06-12] MEDS: TRAMADOL HCL 50 MG TAB PO PRN ×2 (14:35→21:00)
[2017-06-12] MEDS: RIVAROXABAN 15 MG TABLET PO SCH (17:28)
[2017-06-12] MEDS: ATORVASTATIN 10 MG TAB PO SCH (21:39)
--- NOTE | 2017-06-12 22:56 | PN ---
Date of Progress Note: 06/12/2017 Subjective: The patient was seen this afternoon for followup. He was lying in bed. His was present with him at bedside. I have reviewed his hospital records. He came into emergency room on 06/09/2017 with weakness and fall. The patient was found to be dehydrated and had acute kidney injury. I have reviewed current hospital records. When he first came in, his creatinine was 3.36 and BUN was 98. The patient's chest x-ray showed pneumonia. CAT scan of the head, cervical spine, chest, abdomen, and pelvis was done and it also shows pneumonia involving multiple different lobes, and diagnosis of aspiration pneumonia was suspected. The patient was admitted to the hospital, was started on IV antibiotics, and Nephrology consultation was obtained from Dr. Fernández. Cardiology consultation was obtained from Dr. Ashraf. Pulmonary consultation was obtained from Dr. Sanchez. The patient was given IV antibiotic, Zosyn. Overall, his condition has improved. Speech therapy was consulted as I understand, but so far, modified barium swallow test has not been done because of the weekend as I understand, and I will order that to be done tomorrow. The patient denies any obvious trouble swallowing. He was very emotional. When I saw him today, he cried couple of times and main reason why he was feeling that way because he wanted to be at home and says that he needed to take care of his and here he is sick in the hospital bed. I did talk to him for some time to explain him what is going on and reassured him that with time, we expect him to get back to his normal level of functioning like the way it was prior to this admission. He was wondering about the discharge date, and I informed him that I am expecting him to go home sometime this week but whether that will happen tomorrow or in next 2-3 days, I am not 100% sure about that, and we will have to look into that. He is currently on oxygen while in the hospital but he does not have any home oxygen. Objective: Vital Signs: Reviewed. HEENT: Examination unremarkable. Lungs: Clear to auscultation except right basal rales. Heart: Sounds normal. Abdomen: Soft, bowel sounds normal. No guarding, rigidity, tenderness, or distention. Extremities: No leg edema. Laboratory Data: Sodium 144, potassium 4.2, chloride 112, bicarb 24. BUN 53, creatinine 1.43, glucose 96. The last CBC from 06/10/2017; white count 6.2, hemoglobin 13.2, platelets 116. Blood culture remains negative. Impression: 1. Pneumonia. 2. Acute kidney injury. 3. Chronic kidney disease stage 3. 4. Congestive heart failure. 5. Acute respiratory failure. 6. Thrombocytopenia. 7. Anemia. Plan: We will go ahead and continue current medications. The patient is on nebulizer treatment oxygen and we will continue that. We will continue his chronic anticoagulation therapy with Xarelto that he is currently on. Continue vancomycin and Zosyn as he is taking. I will see him tomorrow for followup. We will order modified barium swallow for tomorrow. DINO/MODL Voice ID: [id number] Report ID: [id number] MTDD
[2017-06-12] MEDS: VANCOMYCIN 1.25 GM in NA CHLORIDE 0.9% 250 ML IVPB SCH (23:47)
[2017-06-13] MEDS: IPRATROPIUM BROM 0.5MG/2.5ML NEB SCH ×4 (01:20→20:30)
[2017-06-13] MEDS: ALBUTEROL 2.5 MG/3 ML NEB SOL NEB PRN (01:20)
[2017-06-13] MEDS: HYDROCODONE/APAP 10/325 TAB PO PRN ×3 (01:45→20:20)
[2017-06-13] MEDS: PIPER/TAZO/NS 2.25gm 2.25 GM/50 ML BAG IVPB SCH ×3 (04:18→20:18)
[2017-06-13 04:22] LABS: Absolute Monocytes 0.7 K/uL (0.1-1.3); Absolute Neutrophil 6.6 K/uL (1.8-8.0); Basophils % 0.4 % (0-1.3); Eosinophils % 1.7 % (0-4.4); Hematocrit 43.5 % (39.6-49.0); Lymphocytes % 12.2 % (15.3-44.8); MCH 31.1 pg (27.0-35.0); MCV 95.1 fL (80-100); MPV 10.5 fL (7.6-11.3); Monocytes % 7.6 % (3.3-12.3); RBC Red Blood Cell Count 4.57 M/uL (4.33-5.43)
[2017-06-13 05:09] LABS: Magnesium 2.2 mg/dL (1.8-2.5); Thyroid Stimulating Hormone 1.54 uIU/mL (0.34-5.60)
[2017-06-13 05:10] LABS: Potassium 4.7 mEq/L (3.6-5.0)
[2017-06-13] MEDS ORDERED: D5 0.45 NS 1,000 ML IV SCH (08:00)
--- NOTE | 2017-06-13 09:19 | RAD REPORT ---
EXAM DESCRIPTION: RAD - Chest Pa And Lat (2 Views) - 06/13/2017 9:05 am CLINICAL HISTORY: Pneumonia, shortness of breath COMPARISON: June 11 TECHNIQUE: PA and lateral views of the chest were obtained. FINDINGS: The lungs are normal volume. Interstitial and airspace opacities in the lower lung martinez are similar to only fractionally improved from prior imaging. Right upper lobe airspace disease has i mproved. Patient has significant underlying interstitial lung disease. No progressive process seen. Cardiac silhouette remains enlarged. No vascular engorgement or other findings of significant failure / volume overload. No pneumothorax. No large pleural effusion. No acute bony finding noted. No aor tic abnormality. IMPRESSION: Right upper lobe interstitial and alveolar opacification improved from June 11. Bilateral lung base opacification has probably improved as well though the differential is not as gre at as the upper lobe improvement. Cardiomegaly remains in place. No vascular engorgement.
--- NOTE | 2017-06-13 09:58 | RAD REPORT ---
EXAM DESCRIPTION: RAD - Barium Swallow Modified - 06/13/2017 9:44 am CLINICAL HISTORY: Difficulty swallowing COMPARISON: None. TECHNIQUE: The patient was given liquid, semi-solid and solid forms of barium. Lateral view fluorosc opic imaging was performed in conjunction with [facility] service. FINDINGS: Laryngeal penetration was observed on the thin form of barium. Patient was able to clear t his with a cough reflex. No aspiration confirmed. Residual contrast was seen in the valleculae, piriform sinuses along with delayed swallow reflex. IMPRESSION: Laryngeal penetration without aspiration. Additional findings detailed above and on speech pathology report.
[2017-06-13] MEDS: GABAPENTIN 400 MG CAP PO SCH ×3 (10:12→20:19)
[2017-06-13] MEDS: PANTOPRAZOLE 40MG TABLET PO SCH (10:12)
[2017-06-13] MEDS: CARVEDILOL 3.125 MG TAB PO SCH ×2 (10:13→20:21)
[2017-06-13] MEDS: ARFORMOTEROL TARTRATE 15 MCG/2 ML VIAL.NEB NEB SCH ×2 (12:00→20:30)
--- NOTE | 2017-06-13 12:39 | PN ---
The patient seen and examined in room 413, bed A on [facility]. The vivi izaguirre is an 87-year-old male, who present to the hospital day before yesterday, has been actually nina leung quite well. Compared to yesterday, he was placed in the intensive care unit, but is now on the fou rth floor. He sitting up in chair, alert, awake, quite talkative actually, had a nice good discussio n with them. The patient was talking about how lunch is the major meal in [place] and that he was ea ting his lunch and was feeling better. He states that he was mildly short of breath if he moves too much, but this is something that also happens to him. On other times, he has a history of some conge stive heart failure. Dr. Sanchez was in the room with me, also the imaging science professor, who knows the vivi izaguirre from clinic and states that the patient does have some question of diastolic heart failure. He is, at this point, looking quite improved from his kidney function point of view, with creatinine com ing down to 1.5, which seems to be his baseline now from several months ago. At this point, he is ge tting 40 cc of normal saline. His sodium has gone up slightly, but now he is eating and drinking bet ter. His vitals look stable. Currently, blood pressure last check was 107/63, his pulse is about 60 to 65, respirations around 14. Lungs are clear to auscultation anteriorly with few crackles of the very bases, which seemed fine in nature. Abdomen is soft. He does not seem to have any edema and re asonable air entry in the lungs. Laboratory Data: Lab data reviewed. The patient's labs show significant improvement in his creatini ne from yesterday. His creatinine is now down to 1.53 from 2.45 yesterday. Sodium was 145 to 143 ye sterday, potassium 4, chloride is 111, bicarb is 24, BUN is 63, significant improvement from 83 yeste rday. His albumin was 2.9 yesterday. Assessment And Plan: The patient is looking clinically better. Acute kidney function significantly improved with IV fluids. At this point, would be in agreement with stopping the normal saline. Dr. Solis also agrees with that. The patient is only getting 40 cc an hour. He could benefit from nic ing D5W and I was thinking about ordering that for him a little bit, but now the patient is drinking and eating comfortably and he is drinking water on his own comfortably. I think this will improve on its own and we do not need to give him any IV fluids for that. In summary, encourage some improveme nt in water intake. Continue monitoring volume status. At this point, kidney function has improved. Okay to stop normal saline and monitor the labs. Fall precautions to continue. The patient seems to be clinically improved, alert, and able to answer questions appropriately and comfortably. He troy s have some shortness of breath, but an understanding from patient and Dr. Sanchez is that this is n ot unusual for patient, and it is close to his baseline. /ELVIS Voice ID: [id number] Report ID: [id number]
--- NOTE | 2017-06-13 12:54 | ECHO ---
HEIGHT: 5 ft 10 in WEIGHT: 185 lb 8 oz DATE OF STUDY: 06/13/[address]: Sathish Chaney MD 2-DIMENSIONAL: YES M.MODE: YES DOPPLER: YES COLOR FLOW: YES TDS: PORTABLE: DEFINITY: BUBBLE STUDY: DIAGNOSIS: CONGESTIVE HEART FAILURE CARDIAC HISTORY: CATHERIZATION: NO SURGERY: NO PROSTHETIC VALVE: NO PACEMAKER: DEFIB MEASUREMENTS (cm) DIASTOLIC (NORMALS) SYSTOLIC (NORMALS) IVSd 0.9 (0.6-1.2) LA Diam 4.0 (1.9-4.0) LVEF 23% LVIDd 6.1 (3.5-5.7) LVIDs 5.4 (2.0-3.5) %FS 11% LVPWd 1.1 (0.6-1.2) Ao Diam 3.2 (2.0-3.7) 2 DIMENSIONAL ASSESSMENT: RIGHT ATRIUM: DILATED LEFT ATRIUM: DILATED RIGHT VENTRICLE: DILATED PACEMAKER CATHETER LEFT VENTRICLE: DILATED TRICUSPID VALVE: NORMAL MITRAL VALVE: NORMAL PULMONIC VALVE: NORMAL AORTIC VALVE: NORMAL PERICARDIAL EFFUSION: NONE AORTIC ROOT: NORMAL LEFT VENTRICULAR WALL MOTION: SEVERE GLOBAL HYPOKINESIS DOPPLER/COLOR FLOW: MILD AORTIC, MITRAL AND TRICUSPID REGURGITATION. ESTIMATED RIGHT VENTRICULAR SYSTOLIC PRESSURE 45 mmHg. MILD PULMONARY HYPERTENSION. COMMENTS: SEVERELY DEPRESSED LEFT VENTRICULAR EJECTION FRACTION. FOUR CHAMBER DILATION. PACEMAKER IN RIGHT VENTRICLE. MILD AORTIC, MITRAL AND TRICUSPID REGURGITATION. MILD PULMONARY HYPERTENSION. TECHNOLOGIST: CALVIN ESCOBAR
--- NOTE | 2017-06-13 14:42 | PN ---
Mr. Kidd seems to have his pneumonia improving. Reviewing of the x-ray looks like, we are closed to getting volume overloaded. He is very capable of doing that. His EF is in 20s. we should reinst itute his therapy with his Entresto, stop any IV fluids we can. Perhaps, he could be switched to ora l antibiotics at 1 months . Thank you very much for your kind referral of Mr. Kidd. DARLIN/ELVIS Voice ID: [id number] Report ID: [id number]
[2017-06-13] MEDS: TRAMADOL HCL 50 MG TAB PO PRN (15:06)
[2017-06-13] MEDS ORDERED: LORazepam 2 MG/ML VIAL IV ONE (15:51)
[2017-06-13] MEDS: RIVAROXABAN 15 MG TABLET PO SCH (16:13)
--- NOTE | 2017-06-13 16:47 | P.PN ---
Date of Service: 06/13/17 Vital Signs Temp Pulse Resp BP Pulse Ox 97 F 71 24 H 143/85 H 96 06/13/17 08:00 06/13/17 10:13 06/13/17 08:00 06/13/17 10:13 06/13/17 08:00 Medications Acetaminophen (Tylenol -Extra Strength) 500 mg PO Q4HP PRN PRN Reason: AZRD-ex-FCMP Stop: 07/09/17 21:16 Hydrocodone Bitart/Acetaminophen ([place] 10/325) 1 tab PO Q6H PRN PRN Reason: PAIN MILD TO MODERATE Stop: 07/10/17 18:12 Last Admin: 06/13/17 13:39 Dose: 1 tab Albuterol Sulfate (Proventil 0.083% Neb Soln) 2.5 mg NEB Q6HP PRN PRN Reason: SHORTNESS OF BREATH Stop: 07/09/17 21:16 Last Admin: 06/13/17 01:20 Dose: 2.5 mg Alprazolam (Xanax) 0.25 mg PO BEDTIME DONNA Stop: 07/13/17 21:01 Arformoterol Tartrate (Brovana) 15 mcg NEB BIDRESP DONNA Stop: 07/11/17 20:01 Last Admin: 06/13/17 12:00 Dose: 15 mcg Atorvastatin Calcium (Lipitor) 10 mg PO BEDTIME DONNA Stop: 07/10/17 21:01 Last Admin: 06/12/17 21:39 Dose: 10 mg Carvedilol (Coreg) 3.125 mg PO BID DONNA Stop: 07/10/17 21:01 Last Admin: 06/13/17 10:13 Dose: 3.125 mg Gabapentin (Neurontin) 400 mg PO TID DONNA Stop: 07/11/17 21:01 Last Admin: 06/13/17 13:39 Dose: 400 mg Home Med (Tiotropium [place] [Spiriva Respimat]) 2 puff IH DAILY DONNA Stop: 07/11/17 09:01 Last Admin: 06/13/17 10:17 Dose: 2 puff Piperacillin/Tazobactam/Sod Chloride (Zosyn 2.25 Gm/50 Ml Ivpb) 2.25 gm in 50 mls @ 100 mls/hr IVPB Q8H DONNA Stop: 07/11/17 12:01 Last Admin: 06/13/17 12:42 Dose: 50 mls Vancomycin HCl 1.25 gm/ Sodium (Chloride) 250 mls @ 150 mls/hr IVPB Q36H [facility] Stop: 07/11/17 11:01 Last Admin: 06/12/17 23:47 Dose: 250 mls Ipratropium [place] (Atrovent Neb) 0.5 mg NEB [id number] DONNA Stop: 07/10/17 02:01 Last Admin: 06/13/17 08:00 Dose: Not Given Ondansetron HCl (Zofran) 4 mg IV Q6HP PRN PRN Reason: NAUSEA / VOMITING Stop: 07/09/17 21:16 Pantoprazole Sodium (Protonix Tab) 40 mg PO DAILY DONNA Stop: 07/11/17 09:01 Last Admin: 06/13/17 10:12 Dose: 40 mg Rivaroxaban (Xarelto) 15 mg PO DAILY AT SUPPER DONNA Stop: 07/10/17 17:01 Last Admin: 06/13/17 16:13 Dose: 15 mg Sodium Chloride (Normal Saline Flush) 10 ml IV BID DONNA Stop: 07/10/17 09:01 Last Admin: 06/13/17 10:14 Dose: 10 ml Tramadol HCl (Ultram) 50 mg PO Q6H PRN PRN Reason: PAIN Stop: 07/10/17 11:12 Last Admin: 06/13/17 15:06 Dose: 50 mg Microbiology Results 06/09/17 20:00 Blood - Other Aerobic Blood Culture - Preliminary No growth in 24 hours. 06/09/17 20:00 Blood - Other Anaerobic Blood Culture - Preliminary No growth in 24 hours. Assessment/ Plan: Nephrology. Feeling better today. CPS stable without CP or SOB. No acute events overnight. Vitals, medications, blood work and imaging reviewed in the chart. General: Cooperative, Confused HEENT: Atraumatic Neck: Supple Respiratory: Clear to auscultation bilaterally Cardiovascular: Trace edema, Regular rate/rhythm, No rubs Gastrointestinal: Soft and benign, Non-distended Musculoskeletal: No clubbing, No contractures Integumentary: No rashes, No cyanosis Neurological: Normal speech Laboratory Data (last 24 hrs) 06/09/17 18:15: APTT 24.9 06/09/17 18:15: Amylase 59, Lipase 20 L 06/09/17 18:15: PT 14.6 H, INR 1.23 06/09/17 18:15: WBC 6.8, Hgb 14.0, Hct 41.9, Plt Count 127 L 06/09/17 18:15: B-Natriuretic Peptide 474 H 06/09/17 18:15: Sodium 142, Potassium 3.8, BUN 98 H, Creatinine 3.36 H, Glucose 130 H, Magnesium 2.8 H, Total Bilirubin 1.0, AST 30, ALT 19, Alkaline Phosphatase 69 Imagings Data: EXAM DESCRIPTION: CT - Head C Spine Cap Wo Con - 06/09/2017 8:14 pm CLINICAL HISTORY: Fall, altered mental status, head, neck, chest and abdomen pain COMPARISON: CT lumbar spine January 2016 TECHNIQUE: Axial [address] head images were obtained. Axial [address] cervical spine images were obtained with sagittal and coronal reconstruction images reviewed. Axial 5 mm images of the chest, abdomen and pelvis were obtained. All CT scans are performed using dose optimization technique as appropriate and may include automated exposure control or mA/KV adjustment according to patient size. FINDINGS: No intracranial hemorrhage, mass or edema. No midline shift or abnormal fluid collection. Mastoid air cells and paranasal sinuses are clear. No skull fracture. Patient has advanced atrophy and chronic ischemic change. 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 Ventricular size is in proportion. Arterial and physiologic calcifications are present. Cervical bodies are normal in height and alignment. No fracture or acute bone finding.Advanced degenerative changes are present at the dens C1 level. C5-6 and C6-7 disc and endplate degenerative changes are present.No prevertebral soft tissue thickening or paraspinal mass.Central canal detail is inherently limited on CT imaging. No pneumothorax or pleural fluid collection. Interstitial and alveolar opacities are present mild in degree in the posterior right upper lobe. Moderate interstitial and alveolar opacification is present in the right lower lobe with the base as well is in the posterior inferior right middle lobe. Minimal stranding is seen in the medial aspect of the left base. There is bronchial wall thickening present. No endobronchial lesions seen. No mediastinal hematoma and the aorta and pulmonary arteries are unremarkable. No chest will mass or abnormal axillary finding. No displaced rib fracture or other significant bony finding. No pericardial thickening or effusion. CT abdomen and pelvis show no injury to solid abdominal viscera. Gallbladder and biliary tree are unremarkable. Gallstones can be occult. No free air, free fluid or abnormal stranding. No mass or bulky lymphadenopathy. A small fat only periumbilical hernia is present. No hydronephrosis. Renal function cannot be assessed on noncontrast imaging. Urinary bladder is contracted. Patient has diverticulosis in the sigmoid but no diverticulitis. Disc and bony degenerative changes are present. No pathologic bone process. No traumatic injury seen. Prominent calcifications of the aorta with distal aortic tortuosity. Heart size is upper normal with no pericardial effusion. Pacemaker wires are in place. Infrarenal abdominal aortic aneurysm is present a 3.5 cm. Very dense iliac arterial calcifications are present. IMPRESSION: Interstitial and alveolar lung parenchymal opacification favoring pneumonia over failure or volume overload. No traumatic injury to the chest. Advanced atrophy and chronic ischemic change. No acute intracranial finding. Cervical spine degenerative change present as detailed. No acute findings seen. Abdominal aortic aneurysm 3.5 cm in size. No significant CT Abdomen and Pelvis finding. Conclusions/Impression: A/ JESS in the setting of hypovolemia. 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 HTN complicated by hypotension in the setting of hypovolemia. Hypokalemia. DM II with CKD. Hypocalcemia. HyperPO4. Thrombocytopenia. AMS in the setting of opiates. Systolic CHF, chronic. P/ Continue current POC and Medications. Counseled regarding sodium intake. No NSAIDs. AM labs. Daily weight.
[2017-06-13] MEDS: SACUBITRIL/VALSARTAN 49/51 MG TAB PO SCH (20:19)
[2017-06-13] MEDS: ATORVASTATIN 10 MG TAB PO SCH (20:19)
[2017-06-13] MEDS: ALPRAZOLAM 0.25 MG TABLET PO SCH (20:20)
[2017-06-13] MEDS ORDERED: LORazepam 2 MG/ML VIAL IV PRN (22:06)
[2017-06-14] MEDS: IPRATROPIUM BROM 0.5MG/2.5ML NEB SCH ×4 (01:30→19:55)
--- NOTE | 2017-06-14 01:49 | PN ---
Date of Progress Note: 06/13/2017 Subjective: The patient was seen this morning for followup. No new complaints or problems reported by the patient, except when he was talking to me he started crying again as he got upset about being in the hospital and this is happening almost on a daily basis since he has been in hospital. After I saw him today, he had really bad problem with anxiety, required IV Ativan and he did respond to that very well. The patient did have a fall today in his room as reported by nursing staff, but he did n ot have any injury. He was sitting in the chair at the bedside and as he tried to get up on his own, he lost balance and just got down on the floor from the sitting position in the chair and no obvious injuries. When nurse contacted me at that time, she was informed to go ahead and make arrangements for sitter to be in the patient's room to avoid any fall and injury. Objective: Vital Signs: Reviewed. HEENT: Unremarkable. Lungs: Right basal rales. Not in any respiratory distress. Heart: Sounds normal. Abdomen: Soft. Bowel sounds normal. No guarding, rigidity, tenderness, or distention. Extremities: No leg edema. Laboratory Data: White count 8.5, hemoglobin 14.2, platelets 171. Sodium 146, potassium 4.7, chlori de 112, bicarb 22, BUN 44, creatinine 1.40, glucose 106. The patient's modified barium swallow shows laryngeal penetration without aspiration. Chest x-ray, r ight upper lobe, interstitial and alveolar opacification improved, bilateral lung base opacification has probably improved as well. Echocardiogram shows ejection fraction 23%. Impression: 1.Pneumonia. 2.Acute kidney injury, improved. 3.Volume depletion, improved. 4.Chronic systolic congestive heart failure. 5.Anxiety. 6.Depression. Plan: We will go ahead and continue current antibiotics. IV fluid was changed this morning from julia f-normal saline to D5 half-normal saline and we probably will consider to discontinue it tomorrow. C ontinue to follow with home advisor. We will continue current antibiotics. Ativan one time dose was given and we will continue p.r.n. Ativan. He responded well to that and probably starting tomorrow, we will go ahead and add sertraline 30 mg p.o. daily. We will continue to follow up with cardiologi st. SUN/ELVIS Voice ID: [id number] Report ID: [id number]
[2017-06-14] MEDS: PIPER/TAZO/NS 2.25gm 2.25 GM/50 ML BAG IVPB SCH ×3 (04:04→20:32)
[2017-06-14 05:07] LABS: Potassium 4.4 mEq/L (3.6-5.0); Uric Acid 6.9 mg/dL (4.8-8.7)
[2017-06-14] MEDS: ARFORMOTEROL TARTRATE 15 MCG/2 ML VIAL.NEB NEB SCH ×2 (07:45→19:55)
[2017-06-14] MEDS ORDERED: D5W 500 ML IV SCH (08:00)
[2017-06-14] MEDS: GABAPENTIN 400 MG CAP PO SCH ×3 (09:24→20:35)
[2017-06-14] MEDS: PANTOPRAZOLE 40MG TABLET PO SCH (09:24)
[2017-06-14] MEDS: SERTRALINE HCL 50 MG TAB PO SCH (09:25)
[2017-06-14] MEDS: CARVEDILOL 3.125 MG TAB PO SCH ×2 (09:27→20:37)
[2017-06-14] MEDS: VANCOMYCIN 1.25 GM in NA CHLORIDE 0.9% 250 ML IVPB SCH (11:27)
[2017-06-14] MEDS: SACUBITRIL/VALSARTAN 49/51 MG TAB PO SCH ×2 (13:52→20:36)
[2017-06-14] MEDS: HYDROCODONE/APAP 10/325 TAB PO PRN (16:20)
[2017-06-14] MEDS: RIVAROXABAN 15 MG TABLET PO SCH (17:41)
--- NOTE | 2017-06-14 19:59 | P.PN ---
Date of Service: 06/14/17 Vital Signs Temp Pulse Resp BP Pulse Ox 97.2 F 81 20 130/80 93 06/14/17 12:00 06/14/17 16:00 06/14/17 16:00 06/14/17 16:00 06/14/17 12:00 Medications Acetaminophen (Tylenol -Extra Strength) 500 mg PO Q4HP PRN PRN Reason: [id number] Stop: 07/09/17 21:16 Hydrocodone Bitart/Acetaminophen ([place] 10/325) 1 tab PO Q6H PRN PRN Reason: PAIN MILD TO MODERATE Stop: 07/10/17 18:12 Last Admin: 06/14/17 16:20 Dose: 1 tab Albuterol Sulfate (Proventil 0.083% Neb Soln) 2.5 mg NEB Q6HP PRN PRN Reason: SHORTNESS OF BREATH Stop: 07/09/17 21:16 Last Admin: 06/13/17 01:20 Dose: 2.5 mg Alprazolam (Xanax) 0.25 mg PO BEDTIME DONNA Stop: 07/13/17 21:01 Last Admin: 06/13/17 20:20 Dose: 0.25 mg Arformoterol Tartrate (Brovana) 15 mcg NEB BIDRESP DONNA Stop: 07/11/17 20:01 Last Admin: 06/14/17 07:45 Dose: 15 mcg Atorvastatin Calcium (Lipitor) 10 mg PO BEDTIME DONNA Stop: 07/10/17 21:01 Last Admin: 06/13/17 20:19 Dose: 10 mg Carvedilol (Coreg) 3.125 mg PO BID DONNA Stop: 07/10/17 21:01 Last Admin: 06/14/17 09:27 Dose: 3.125 mg Gabapentin (Neurontin) 400 mg PO TID DONNA Stop: 07/11/17 21:01 Last Admin: 06/14/17 13:58 Dose: 400 mg Home Med (Tiotropium [place] [Spiriva Respimat]) 2 puff IH DAILY DONNA Stop: 07/11/17 09:01 Last Admin: 06/14/17 09:29 Dose: 2 puff Piperacillin/Tazobactam/Sod Chloride (Zosyn 2.25 Gm/50 Ml Ivpb) 2.25 gm in 50 mls @ 100 mls/hr IVPB Q8H DONNA Stop: 07/11/17 12:01 Last Admin: 06/14/17 13:52 Dose: 50 mls Vancomycin HCl 1.25 gm/ Sodium (Chloride) 250 mls @ 150 mls/hr IVPB Q36H DONNA Stop: 07/11/17 11:01 Last Admin: 06/14/17 11:27 Dose: 250 mls Ipratropium [place] (Atrovent Neb) 0.5 mg NEB [id number] DONNA Stop: 07/10/17 02:01 Last Admin: 06/14/17 13:30 Dose: 0.5 mg Ondansetron HCl (Zofran) 4 mg IV Q6HP PRN PRN Reason: NAUSEA / VOMITING Stop: 07/09/17 21:16 Pantoprazole Sodium (Protonix Tab) 40 mg PO DAILY DONNA Stop: 07/11/17 09:01 Last Admin: 06/14/17 09:24 Dose: 40 mg Rivaroxaban (Xarelto) 15 mg PO DAILY AT SUPPER DONNA Stop: 07/10/17 17:01 Last Admin: 06/14/17 17:41 Dose: 15 mg Sertraline HCl (Zoloft) 25 mg PO DAILY DONNA Stop: 07/14/17 09:01 Last Admin: 06/14/17 09:25 Dose: 25 mg Sodium Chloride (Normal Saline Flush) 10 ml IV BID DONNA Stop: 07/10/17 09:01 Last Admin: 06/14/17 09:29 Dose: 10 ml Tramadol HCl (Ultram) 50 mg PO Q6H PRN PRN Reason: PAIN Stop: 07/10/17 11:12 Last Admin: 06/13/17 15:06 Dose: 50 mg Microbiology Results 06/09/17 20:00 Blood - Other Aerobic Blood Culture - Preliminary No growth in 24 hours. 06/09/17 20:00 Blood - Other Anaerobic Blood Culture - Preliminary No growth in 24 hours. Assessment/ Plan: Nephrology. Doing well. CPS stable without CP or SOB. No acute events overnight. Vitals, medications, blood work and imaging reviewed in the chart. General: Cooperative, Confused HEENT: Atraumatic Neck: Supple Respiratory: Clear to auscultation bilaterally Cardiovascular: Trace edema, Regular rate/rhythm, No rubs Gastrointestinal: Soft and benign, Non-distended Musculoskeletal: No clubbing, No contractures Integumentary: No rashes, No cyanosis Neurological: Normal speech Laboratory Data (last 24 hrs) 06/09/17 18:15: APTT 24.9 06/09/17 18:15: Amylase 59, Lipase 20 L 06/09/17 18:15: PT 14.6 H, INR 1.23 06/09/17 18:15: WBC 6.8, Hgb 14.0, Hct 41.9, Plt Count 127 L 06/09/17 18:15: B-Natriuretic Peptide 474 H 06/09/17 18:15: Sodium 142, Potassium 3.8, BUN 98 H, Creatinine 3.36 H, Glucose 130 H, Magnesium 2.8 H, Total Bilirubin 1.0, AST 30, ALT 19, Alkaline Phosphatase 69 Imagings Data: EXAM DESCRIPTION: CT - Head C Spine Cap Wo Con - 06/09/2017 8:14 pm CLINICAL HISTORY: Fall, altered mental status, head, neck, chest and abdomen pain COMPARISON: CT lumbar spine January 2016 TECHNIQUE: Axial [address] head images were obtained. Axial [address] cervical spine images were obtained with sagittal and coronal reconstruction images reviewed. Axial 5 mm images of the chest, abdomen and pelvis were obtained. All CT scans are performed using dose optimization technique as appropriate and may include automated exposure control or mA/KV adjustment according to patient size. FINDINGS: No intracranial hemorrhage, mass or edema. No midline shift or abnormal fluid collection. Mastoid air cells and paranasal sinuses are clear. No skull fracture. Patient has advanced atrophy and chronic ischemic change. 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 Ventricular size is in proportion. Arterial and physiologic calcifications are present. Cervical bodies are normal in height and alignment. No fracture or acute bone finding.Advanced degenerative changes are present at the dens C1 level. C5-6 and C6-7 disc and endplate degenerative changes are present.No prevertebral soft tissue thickening or paraspinal mass.Central canal detail is inherently limited on CT imaging. No pneumothorax or pleural fluid collection. Interstitial and alveolar opacities are present mild in degree in the posterior right upper lobe. Moderate interstitial and alveolar opacification is present in the right lower lobe with the base as well is in the posterior inferior right middle lobe. Minimal stranding is seen in the medial aspect of the left base. There is bronchial wall thickening present. No endobronchial lesions seen. No mediastinal hematoma and the aorta and pulmonary arteries are unremarkable. No chest will mass or abnormal axillary finding. No displaced rib fracture or other significant bony finding. No pericardial thickening or effusion. CT abdomen and pelvis show no injury to solid abdominal viscera. Gallbladder and biliary tree are unremarkable. Gallstones can be occult. No free air, free fluid or abnormal stranding. No mass or bulky lymphadenopathy. A small fat only periumbilical hernia is present. No hydronephrosis. Renal function cannot be assessed on noncontrast imaging. Urinary bladder is contracted. Patient has diverticulosis in the sigmoid but no diverticulitis. Disc and bony degenerative changes are present. No pathologic bone process. No traumatic injury seen. Prominent calcifications of the aorta with distal aortic tortuosity. Heart size is upper normal with no pericardial effusion. Pacemaker wires are in place. Infrarenal abdominal aortic aneurysm is present a 3.5 cm. Very dense iliac arterial calcifications are present. IMPRESSION: Interstitial and alveolar lung parenchymal opacification favoring pneumonia over failure or volume overload. No traumatic injury to the chest. Advanced atrophy and chronic ischemic change. No acute intracranial finding. Cervical spine degenerative change present as detailed. No acute findings seen. Abdominal aortic aneurysm 3.5 cm in size. No significant CT Abdomen and Pelvis finding. Conclusions/Impression: A/ JESS in the setting of hypovolemia. 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 HTN complicated by hypotension in the setting of hypovolemia. Hypokalemia. DM II with CKD. Hypocalcemia. HyperPO4. Thrombocytopenia. AMS in the setting of opiates. Systolic CHF, chronic. P/ Continue current POC and Medications. Give a dose of D5W due to worsening hypernatremia. Encourage free water intake. No NSAIDs. AM labs. Daily weight.
[2017-06-14] MEDS: ATORVASTATIN 10 MG TAB PO SCH (20:35)
[2017-06-14] MEDS: ALPRAZOLAM 0.25 MG TABLET PO SCH (20:37)
--- NOTE | 2017-06-14 23:31 | PN ---
Date of Progress Note: 06/14/2017 Subjective: The patient was seen this morning for followup. He was sleeping, easily arousable, not in any distress. Caregiver was present in the room with him and when I saw him this morning after he woke up, he was still little groggy. He did not go to sleep until 2 o'clock in the morning or so. Objective: Vital Signs: Reviewed. HEENT: Unremarkable. Lungs: Clear to auscultation. No rhonchi or rales. Heart: Sounds normal. Abdomen: Soft. Bowel sounds normal. No guarding, rigidity, tenderness, or distention. Extremities: No leg edema. Laboratory Data: Sodium 148, potassium 4.4, chloride 114, bicarb 23, BUN 44, creatinine 1.56, glucos e 108. BNP 7214. Impression: 1.Acute kidney injury. 2.Volume depletion. 3.Congestive heart failure, chronic, systolic. 4.Pneumonia. Plan: We will go ahead and continue current medications for anxiety and depression. Sertraline was started as of this morning, 25 mg p.o. daily and I will discontinue his lorazepam considering how he was this morning being groggy and we will see how sertraline helps him with his anxiety and depressio n problem. Physical therapy to continue to work with the patient. We will continue current antibiot ics. Continue to follow with accredited farm manager and it application architect. I did call the patient's daughter and t alked to her, the patient keeps on asking me every day to go home and he is medically not stable for discharge yet as of today. We are hoping he can be discharged sometime this week, but it all depends on his condition. I have recommended home health care and home physical therapy. The patient's [facility] is in agreement we will consult Social Service to help make arrangements for that. Continue current treatment for congestive heart failure problem. DINO/MODL Voice ID: [id number] Report ID: [id number]
[2017-06-15] MEDS: ALBUTEROL 2.5 MG/3 ML NEB SOL NEB PRN (00:10)
[2017-06-15] MEDS: HYDROCODONE/APAP 10/325 TAB PO PRN ×2 (00:10→13:33)
[2017-06-15] MEDS: IPRATROPIUM BROM 0.5MG/2.5ML NEB SCH ×4 (01:20→19:40)
[2017-06-15] MEDS: PIPER/TAZO/NS 2.25gm 2.25 GM/50 ML BAG IVPB SCH ×3 (04:09→20:20)
[2017-06-15 05:17] LABS: Potassium 3.9 mEq/L (3.6-5.0); Uric Acid 6.9 mg/dL (4.8-8.7)
[2017-06-15] MEDS ORDERED: KCL 20 MEQ/100 mL IVPB 20 MEQ/100 ML BAG IV SCH (06:00)
[2017-06-15] MEDS ORDERED: NA CHLORIDE 0.9% 250 ML ONE (06:36)
[2017-06-15] MEDS ORDERED: D5W 500 ML IV SCH (09:00)
[2017-06-15] MEDS: ARFORMOTEROL TARTRATE 15 MCG/2 ML VIAL.NEB NEB SCH ×2 (09:28→19:40)
--- NOTE | 2017-06-15 10:53 | RAD REPORT ---
EXAM DESCRIPTION: RAD - Chest Pa And Lat (2 Views) - 06/15/2017 8:41 am CLINICAL HISTORY: CHF, pneumonia. COMPARISON: 06/13/2017 FINDINGS: Advanced COPD is present. Ill-defined opacities in the the lung bases, greater on the righ t, appear mildly improved since comparative study. The heart is mildly prominent with multilead pacer /defibrillator device present. No displaced fractures. IMPRESSION: Advanced COPD with mild improvement in right lung opacities since comparative study.
[2017-06-15] MEDS: GABAPENTIN 400 MG CAP PO SCH ×3 (10:58→20:21)
[2017-06-15] MEDS: PANTOPRAZOLE 40MG TABLET PO SCH (10:58)
[2017-06-15] MEDS: SACUBITRIL/VALSARTAN 49/51 MG TAB PO SCH ×2 (10:59→20:21)
[2017-06-15] MEDS: CARVEDILOL 3.125 MG TAB PO SCH ×2 (10:59→20:21)
[2017-06-15] MEDS: SERTRALINE HCL 50 MG TAB PO SCH (11:07)
[2017-06-15] MEDS: TRAMADOL HCL 50 MG TAB PO PRN (15:29)
[2017-06-15] MEDS: RIVAROXABAN 15 MG TABLET PO SCH (17:16)
[2017-06-15] MEDS: ALPRAZOLAM 0.25 MG TABLET PO SCH (20:21)
[2017-06-15] MEDS: ATORVASTATIN 10 MG TAB PO SCH (20:21)
--- NOTE | 2017-06-15 21:08 | P.PN ---
Date of Service: 06/15/17 Vital Signs Temp Pulse Resp BP Pulse Ox 98.5 F 60 22 H 130/73 95 06/15/17 20:00 06/15/17 20:21 06/15/17 20:00 06/15/17 20:21 06/15/17 20:00 Medications Acetaminophen (Tylenol -Extra Strength) 500 mg PO Q4HP PRN PRN Reason: [id number] Stop: 07/09/17 21:16 Hydrocodone Bitart/Acetaminophen ([place] 10/325) 1 tab PO Q6H PRN PRN Reason: PAIN MILD TO MODERATE Stop: 07/10/17 18:12 Last Admin: 06/15/17 13:33 Dose: 1 tab Albuterol Sulfate (Proventil 0.083% Neb Soln) 2.5 mg NEB Q6HP PRN PRN Reason: SHORTNESS OF BREATH Stop: 07/09/17 21:16 Last Admin: 06/15/17 00:10 Dose: 2.5 mg Alprazolam (Xanax) 0.25 mg PO BEDTIME DONNA Stop: 07/13/17 21:01 Last Admin: 06/15/17 20:21 Dose: 0.25 mg Arformoterol Tartrate (Brovana) 15 mcg NEB BIDRESP DONNA Stop: 07/11/17 20:01 Last Admin: 06/15/17 19:40 Dose: 15 mcg Atorvastatin Calcium (Lipitor) 10 mg PO BEDTIME DONNA Stop: 07/10/17 21:01 Last Admin: 06/15/17 20:21 Dose: 10 mg Carvedilol (Coreg) 3.125 mg PO BID DONNA Stop: 07/10/17 21:01 Last Admin: 06/15/17 20:21 Dose: 3.125 mg Gabapentin (Neurontin) 400 mg PO TID DONNA Stop: 07/11/17 21:01 Last Admin: 06/15/17 20:21 Dose: 400 mg Home Med (Tiotropium [employer] [Spiriva Respimat]) 2 puff IH DAILY DONNA Stop: 07/11/17 09:01 Last Admin: 06/15/17 10:58 Dose: 2 puff Piperacillin/Tazobactam/Sod Chloride (Zosyn 2.25 Gm/50 Ml Ivpb) 2.25 gm in 50 mls @ 100 mls/hr IVPB Q8H DONNA Stop: 07/11/17 12:01 Last Admin: 06/15/17 20:20 Dose: 50 mls Vancomycin HCl 1.25 gm/ Sodium (Chloride) 250 mls @ 150 mls/hr IVPB Q36H DONNA Stop: 07/11/17 11:01 Last Admin: 06/14/17 11:27 Dose: 250 mls Ipratropium [employer] (Atrovent Neb) 0.5 mg NEB [id number] DONNA Stop: 07/10/17 02:01 Last Admin: 06/15/17 19:40 Dose: 0.5 mg Ondansetron HCl (Zofran) 4 mg IV Q6HP PRN PRN Reason: NAUSEA / VOMITING Stop: 07/09/17 21:16 Pantoprazole Sodium (Protonix Tab) 40 mg PO DAILY DONNA Stop: 07/11/17 09:01 Last Admin: 06/15/17 10:58 Dose: 40 mg Rivaroxaban (Xarelto) 15 mg PO DAILY AT SUPPER DONNA Stop: 07/10/17 17:01 Last Admin: 06/15/17 17:16 Dose: 15 mg Sertraline HCl (Zoloft) 25 mg PO DAILY DONNA Stop: 07/14/17 09:01 Last Admin: 06/15/17 11:07 Dose: 25 mg Sodium Chloride (Normal Saline Flush) 10 ml IV BID [facility] Stop: 07/10/17 09:01 Last Admin: 06/15/17 20:22 Dose: Not Given Tramadol HCl (Ultram) 50 mg PO Q6H PRN PRN Reason: PAIN Stop: 07/10/17 11:12 Last Admin: 06/15/17 15:29 Dose: 50 mg Microbiology Results 06/09/17 20:00 Blood - Other Aerobic Blood Culture - Final No growth in 5 days. 06/09/17 20:00 Blood - Other Anaerobic Blood Culture - Final No growth in 5 days. Assessment/ Plan: Nephrology. Doing well. No complaints this morning. CPS stable without CP or SOB. No acute events overnight. Vitals, medications, blood work and imaging reviewed in the chart. General: Cooperative, Confused HEENT: Atraumatic Neck: Supple Respiratory: Clear to auscultation bilaterally Cardiovascular: Trace edema, Regular rate/rhythm, No rubs Gastrointestinal: Soft and benign, Non-distended Musculoskeletal: No clubbing, No contractures Integumentary: No rashes, No cyanosis Neurological: Normal speech Laboratory Data (last 24 hrs) 06/09/17 18:15: APTT 24.9 06/09/17 18:15: Amylase 59, Lipase 20 L 06/09/17 18:15: PT 14.6 H, INR 1.23 06/09/17 18:15: WBC 6.8, Hgb 14.0, Hct 41.9, Plt Count 127 L 06/09/17 18:15: B-Natriuretic Peptide 474 H 06/09/17 18:15: Sodium 142, Potassium 3.8, BUN 98 H, Creatinine 3.36 H, Glucose 130 H, Magnesium 2.8 H, Total Bilirubin 1.0, AST 30, ALT 19, Alkaline Phosphatase 69 Imagings Data: EXAM DESCRIPTION: CT - Head C Spine Cap Wo Con - 06/09/2017 8:14 pm CLINICAL HISTORY: Fall, altered mental status, head, neck, chest and abdomen pain COMPARISON: CT lumbar spine January 2016 TECHNIQUE: Axial [address] head images were obtained. Axial [address] cervical spine images were obtained with sagittal and coronal reconstruction images reviewed. Axial 5 mm images of the chest, abdomen and pelvis were obtained. All CT scans are performed using dose optimization technique as appropriate and may include automated exposure control or mA/KV adjustment according to patient size. FINDINGS: No intracranial hemorrhage, mass or edema. No midline shift or abnormal fluid collection. Mastoid air cells and paranasal sinuses are clear. No skull fracture. Patient has advanced atrophy and chronic ischemic change. 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 Ventricular size is in proportion. Arterial and physiologic calcifications are present. Cervical bodies are normal in height and alignment. No fracture or acute bone finding.Advanced degenerative changes are present at the dens C1 level. C5-6 and C6-7 disc and endplate degenerative changes are present.No prevertebral soft tissue thickening or paraspinal mass.Central canal detail is inherently limited on CT imaging. No pneumothorax or pleural fluid collection. Interstitial and alveolar opacities are present mild in degree in the posterior right upper lobe. Moderate interstitial and alveolar opacification is present in the right lower lobe with the base as well is in the posterior inferior right middle lobe. Minimal stranding is seen in the medial aspect of the left base. There is bronchial wall thickening present. No endobronchial lesions seen. No mediastinal hematoma and the aorta and pulmonary arteries are unremarkable. No chest will mass or abnormal axillary finding. No displaced rib fracture or other significant bony finding. No pericardial thickening or effusion. CT abdomen and pelvis show no injury to solid abdominal viscera. Gallbladder and biliary tree are unremarkable. Gallstones can be occult. No free air, free fluid or abnormal stranding. No mass or bulky lymphadenopathy. A small fat only periumbilical hernia is present. No hydronephrosis. Renal function cannot be assessed on noncontrast imaging. Urinary bladder is contracted. Patient has diverticulosis in the sigmoid but no diverticulitis. Disc and bony degenerative changes are present. No pathologic bone process. No traumatic injury seen. Prominent calcifications of the aorta with distal aortic tortuosity. Heart size is upper normal with no pericardial effusion. Pacemaker wires are in place. Infrarenal abdominal aortic aneurysm is present a 3.5 cm. Very dense iliac arterial calcifications are present. IMPRESSION: Interstitial and alveolar lung parenchymal opacification favoring pneumonia over failure or volume overload. No traumatic injury to the chest. Advanced atrophy and chronic ischemic change. No acute intracranial finding. Cervical spine degenerative change present as detailed. No acute findings seen. Abdominal aortic aneurysm 3.5 cm in size. No significant CT Abdomen and Pelvis finding. Conclusions/Impression: A/ JESS in the setting of hypovolemia. 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 HTN complicated by hypotension in the setting of hypovolemia. Hypokalemia. DM II with CKD. Hypocalcemia. HyperPO4. Thrombocytopenia. AMS in the setting of opiates. Systolic CHF, chronic. P/ Continue current POC and Medications. Give another dose of D5W. Encourage free water intake. No NSAIDs. AM labs. Daily weight.
--- NOTE | 2017-06-15 23:07 | PN ---
Date of Progress Note: 06/15/2017 Subjective: The patient was seen this morning for followup. Caregiver was present in room with the patient. He was lying in bed, not in distress. He did sleep well for about 6 hours last night and t his morning, he did not appear groggy like he was yesterday. After we discontinued lorazepam, his gr ogginess improved. He reported that he did walk yesterday with Physical Therapy in the hallway, but because of shortness of breath he had to stop while walking and rest for a while. No nausea or vomit ing. Objective: Vital Signs: Reviewed. HEENT: Unremarkable. Lungs: Clear to auscultation except right basal rales unchanged, not in any respiratory distress. Heart: Sounds normal. Abdomen: Soft. Bowel sounds normal. No guarding, rigidity, tenderness, or distention. Extremities: No leg edema. Imaging: Chest x-ray done today shows advanced COPD changes and infiltrate in the lungs shows improv ement compared to prior x-ray. Laboratory Data: Sodium 145, potassium 3.9, chloride 113, bicarb 24, BUN 44, creatinine 1.55, glucos e 101. Impression: 1.Pneumonia. 2.Congestive heart failure, chronic, systolic. 3.Acute kidney injury, improved. 4.Ventricular tachycardia. 5.Sleep apnea. Plan: After I saw the patient, he had episode of nonsustained ventricular tachycardia. He was hemod ynamically stable and also had an episode of apnea. Nurse called to report both of this event to me and she was advised to be report it to Dr. Kasper from Cardiology about the cardiac arrhythmia and to report it to Dr. Sanchez for apnea problem. Dr. Sanchez was there actually when the patient had t his episode this morning. No further intervention was suggested by him. It is possible that the vivi izaguirre may have sleep apnea but obviously at this point, we have multiple other serious health problems that takes priority over sleep apnea problem. Once again, this morning when I saw the patient, he w as crying again and wanting to go home. I had to explain it to him once more again that he is not re rebeka for discharge and I am afraid that if he goes home today or if he goes home before we think he is ready, there is a good possibility he will turn around and come back. I expect him to go home over the next day or 2 days if his condition is stable and at the same time his overall prognosis is very poor because of his cardiac and pulmonary problem. This evening, I talked to Dr. Sanchez and Dr. Tony casey, packaging sales consultant and lactation specialist, and discussed about my recommendation of hospice care and both of these physicians agreed with this considering the patient's poor prognosis. Subsequently, I meza d and talked to the patient's daughter and son-in-law on phone this evening and discussed about all t hese details and they understand and agree with the plan for hospice care if the patient is agreeable . We also talked about living will and obviously the patient is able to make decision, so I will rosendo k to patient tomorrow morning when I see him and I will talk to him about advance directive as well a s hospice care. If the patient is willing to go on hospice, then our plan will be to discharge him t o go home, possibly tomorrow with hospice care and hospice diagnosis will be congestive heart failure and chronic obstructive pulmonary disease. DINO/MODL Voice ID: [id number] Report ID: [id number]
[2017-06-15] MEDS: VANCOMYCIN 1.25 GM in NA CHLORIDE 0.9% 250 ML IVPB SCH (23:09)
[2017-06-16] MEDS: IPRATROPIUM BROM 0.5MG/2.5ML NEB SCH ×4 (02:00→12:50)
[2017-06-16] MEDS: PIPER/TAZO/NS 2.25gm 2.25 GM/50 ML BAG IVPB SCH ×2 (03:58→12:00)
[2017-06-16 04:44] LABS: Potassium 3.8 mEq/L (3.6-5.0)
[2017-06-16] MEDS ORDERED: POTASSIUM CL SA 10 MEQ TAB PO ONE (04:57)
[2017-06-16 05:08] VITALS: BMI 27.7
[2017-06-16] MEDS: ARFORMOTEROL TARTRATE 15 MCG/2 ML VIAL.NEB NEB SCH (07:45)
[2017-06-16 08:18] VITALS: O2SAT 94
[2017-06-16] MEDS: SACUBITRIL/VALSARTAN 49/51 MG TAB PO SCH (09:30)
[2017-06-16] MEDS: CARVEDILOL 3.125 MG TAB PO SCH (09:32)
[2017-06-16] MEDS: TRAMADOL HCL 50 MG TAB PO PRN ×2 (09:32→16:05)
[2017-06-16] MEDS: PANTOPRAZOLE 40MG TABLET PO SCH (09:33)
[2017-06-16] MEDS: GABAPENTIN 400 MG CAP PO SCH ×2 (09:33→14:03)
[2017-06-16] MEDS: SERTRALINE HCL 50 MG TAB PO SCH (09:33)
[2017-06-16 15:06] VITALS: BP 150/70; TEMP 97
[2017-06-16] MEDS: RIVAROXABAN 15 MG TABLET PO SCH (16:05)
--- NOTE | 2017-06-16 21:30 | P.PN ---
Date of Service: 06/16/17 Vital Signs Temp Pulse Resp BP Pulse Ox 97.0 F 67 18 150/70 H 96 06/16/17 12:00 06/16/17 12:00 06/16/17 12:00 06/16/17 12:00 06/16/17 12:00 Microbiology Results 06/09/17 20:00 Blood - Other Aerobic Blood Culture - Final No growth in 5 days. 06/09/17 20:00 Blood - Other Anaerobic Blood Culture - Final No growth in 5 days. Assessment/ Plan: Nephrology. Doing well. No complaints this morning. CPS stable without CP or SOB. No acute events overnight. Vitals, medications, blood work and imaging reviewed in the chart. General: Cooperative, Confused HEENT: Atraumatic Neck: Supple Respiratory: Clear to auscultation bilaterally Cardiovascular: Trace edema, Regular rate/rhythm, No rubs Gastrointestinal: Soft and benign, Non-distended Musculoskeletal: No clubbing, No contractures Integumentary: No rashes, No cyanosis Neurological: Normal speech Laboratory Data (last 24 hrs) 06/09/17 18:15: APTT 24.9 06/09/17 18:15: Amylase 59, Lipase 20 L 06/09/17 18:15: PT 14.6 H, INR 1.23 06/09/17 18:15: WBC 6.8, Hgb 14.0, Hct 41.9, Plt Count 127 L 06/09/17 18:15: B-Natriuretic Peptide 474 H 06/09/17 18:15: Sodium 142, Potassium 3.8, BUN 98 H, Creatinine 3.36 H, Glucose 130 H, Magnesium 2.8 H, Total Bilirubin 1.0, AST 30, ALT 19, Alkaline Phosphatase 69 Imagings Data: EXAM DESCRIPTION: CT - Head C Spine Cap Wo Con - 06/09/2017 8:14 pm CLINICAL HISTORY: Fall, altered mental status, head, neck, chest and abdomen pain COMPARISON: CT lumbar spine January 2016 TECHNIQUE: Axial [address] head images were obtained. Axial [address] cervical spine images were obtained with sagittal and coronal reconstruction images reviewed. Axial 5 mm images of the chest, abdomen and pelvis were obtained. All CT scans are performed using dose optimization technique as appropriate and may include automated exposure control or mA/KV adjustment according to patient size. FINDINGS: No intracranial hemorrhage, mass or edema. No midline shift or abnormal fluid collection. Mastoid air cells and paranasal sinuses are clear. No skull fracture. Patient has advanced atrophy and chronic ischemic change. 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 Ventricular size is in proportion. Arterial and physiologic calcifications are present. Cervical bodies are normal in height and alignment. No fracture or acute bone finding.Advanced degenerative changes are present at the dens C1 level. C5-6 and C6-7 disc and endplate degenerative changes are present.No prevertebral soft tissue thickening or paraspinal mass.Central canal detail is inherently limited on CT imaging. No pneumothorax or pleural fluid collection. Interstitial and alveolar opacities are present mild in degree in the posterior right upper lobe. Moderate interstitial and alveolar opacification is present in the right lower lobe with the base as well is in the posterior inferior right middle lobe. Minimal stranding is seen in the medial aspect of the left base. There is bronchial wall thickening present. No endobronchial lesions seen. No mediastinal hematoma and the aorta and pulmonary arteries are unremarkable. No chest will mass or abnormal axillary finding. No displaced rib fracture or other significant bony finding. No pericardial thickening or effusion. CT abdomen and pelvis show no injury to solid abdominal viscera. Gallbladder and biliary tree are unremarkable. Gallstones can be occult. No free air, free fluid or abnormal stranding. No mass or bulky lymphadenopathy. A small fat only periumbilical hernia is present. No hydronephrosis. Renal function cannot be assessed on noncontrast imaging. Urinary bladder is contracted. Patient has diverticulosis in the sigmoid but no diverticulitis. Disc and bony degenerative changes are present. No pathologic bone process. No traumatic injury seen. Prominent calcifications of the aorta with distal aortic tortuosity. Heart size is upper normal with no pericardial effusion. Pacemaker wires are in place. Infrarenal abdominal aortic aneurysm is present a 3.5 cm. Very dense iliac arterial calcifications are present. IMPRESSION: Interstitial and alveolar lung parenchymal opacification favoring pneumonia over failure or volume overload. No traumatic injury to the chest. Advanced atrophy and chronic ischemic change. No acute intracranial finding. Cervical spine degenerative change present as detailed. No acute findings seen. Abdominal aortic aneurysm 3.5 cm in size. No significant CT Abdomen and Pelvis finding. Conclusions/Impression: A/ JESS in the setting of hypovolemia. 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 HTN complicated by hypotension in the setting of hypovolemia. Hypokalemia. DM II with CKD. Hypocalcemia. HyperPO4. Thrombocytopenia. AMS in the setting of opiates. Systolic CHF, chronic. P/ Continue current POC and Medications. No NSAIDs. AM labs. Daily weight.
--- NOTE | 2017-06-17 05:28 | DS ---
Date of Discharge: 06/16/2017 Disposition: Discharged to go home. Physical Examination: HEENT: Unremarkable. Lungs: Clear to auscultation. No rhonchi or rales. Heart: Sounds normal. Abdomen: Soft, bowel sounds normal. No guarding, rigidity, tenderness, or distention. Extremities: No leg edema. Laboratory Data: Last white count on 06/13/2017 was 8.5, hemoglobin 14.2, platelets 171. Upon admis negro on 06/09; white count 6.8, hemoglobin 14, platelets 127. Last chemistry today; sodium 144, pota ssium 3.8, chloride 119, bicarb 20, BUN 35, creatinine 1.20. Upon admission; sodium 142, potassium 3 .8, chloride 105, bicarb 26, BUN 98, creatinine 3.36, glucose 130. Liver function tests unremarkable. Multiple chest x-ray results reviewed. The last chest x-ray done yesterday shows advanced COPD sherrill nges and improvement in the patient's pneumonia. Echocardiogram shows ejection fraction 20%. Discharge Medications And Instructions: 1.Continue all prior home medication except stop furosemide and stop metolazone. 2.Start alprazolam 0.25 mg at bedtime and sertraline 25 mg p.o. daily and cefuroxime 250 mg p.o. b.i .d. for 1 week. 3.The patient to be admitted to hospice care upon discharge and hospice diagnosis is congestive hear t failure, COPD, and coronary artery disease. Discharge Diagnoses: 1.Aspiration pneumonia. 2.Acute kidney injury. 3.Volume depletion. 4.Congestive heart failure, chronic, systolic. 5.Coronary artery disease. 6.Chronic obstructive pulmonary disease. 7.Depression. 8.Anxiety. Hospital Course: An 87-year-old male patient admitted to the hospital after he presented to the [facility] with falling down and generalized weakness. Please see dictated H and P for more informat ion. After the patient was evaluated in the ER, he was admitted to the hospital with aspiration pneu monia, volume depletion, acute kidney injury. The patient was taking furosemide and metolazone for h is chronic systolic congestive heart failure at home and he sees Dr. Kasper, rn lab on a regula r basis for his congestive heart failure problem. He also sees me for his general medical care and s ees Dr. aSnchez from Pulmonary. The patient's chest x-ray was done. CAT scan of the chest was done and it revealed presence of pneumonia involving multiple lobes and this was thought to be due to asp iration pneumonia. Speech therapy was consulted and we did order modified barium swallow, which was done this week and speech therapist has recommended not to use straw and patient to sit upright durin g mealtime. The patient was given IV Zosyn and IV vancomycin during this hospitalization and chest x -ray has shown improvement in pneumonia. Physical therapy was consulted and the patient started ambu lating well with the therapy. His room air oxygen saturation was low and the patient will need maryan nuous home oxygen. Cardiology consultation and Pulmonary consultation were requested and also Nephro logy consultation was requested. The patient received careful IV fluid hydration with close monitori ng of electrolytes and renal function and about 2-3 days ago, we discontinued his IV fluid. The katelynn ent has not required any diuretic therapy during this hospitalization and there will be a time in the future when he will need his diuretic therapy and we will restart furosemide and then if he needs, t hen we will consider to restart metolazone. The patient had lot of trouble with anxiety and depressi on during this hospitalization. He received alprazolam, which actually helps him to sleep at night. We also gave him lorazepam and after giving it to him for 1 day, he probably received maybe 2 doses and he was grogging next day morning, so we discontinued lorazepam and his grogginess problem improve d. For anxiety and depression, we started him on sertraline and so far in the hospital, he has recei kath 2 doses of this medication. The patient appears to have end-stage congestive heart failure probl em with ejection fraction around 20%. He also has advanced COPD changes as noted on chest x-ray. I did have a long discussion with the patient's daughter and son-in-law yesterday on the phone and this morning. The patient's daughter was present in the room with the patient and I talked to patient in presence of his daughter about his 2 major organ, which is heart and lungs having significant proble m and this makes his overall prognosis very poor and we talked about all these test results with poor prognosis and recommended him hospice care if he is willing to consider that and after explaining it to him, the patient informed me that he does not want to come back to the hospital. He want to stay home comfortable and in case of cardiopulmonary arrest, he does not want any heroic measures done, s o DNR order was written in the chart. Out of hospital DNR form was signed by me and Social Service w as requested to help patient get this out of hospital DNR form ready as well. Out of different home health agency, family decided to go with [facility] and Social Service was consult ed to help make arrangements for that and once arrangements completed, decision was made for patient to go home with hospice care. His overall prognosis is poor. The patient's family is in agreement w ith hospice care. DINO/MODL Voice ID: [id number] Report ID: [id number]
== END 2017-06-16 17:17 | disposition hospice, home (50) | DRG 177 ==
LOC: ER 17:58 → ERHOLD 20:07 → 3RD-ICU 21:47 → 4TH 06-10 13:25
PROVIDERS: ADMIT Hospitalist; ATTEND Internal Medicine
PROC: 0T9B70Z Drainage of Bladder with Drainage Device, Via Natural or Artificial Opening (ICD-10-PCS; principal; 2017-06-09)
DX: J69.0 Pneumonitis due to inhalation of food and vomit (principal); J96.00 Acute respiratory failure, unspecified whether with hypoxia or hypercapnia; N17.9 Acute kidney failure, unspecified; I13.0 Hypertensive heart and chronic kidney disease with heart failure and stage 1 through stage 4 chronic kidney disease, or unspecified chronic kidney disease; I50.22 Chronic systolic (congestive) heart failure; I47.2 Ventricular tachycardia; E78.5 Hyperlipidemia, unspecified; G89.29 Other chronic pain; I25.10 Atherosclerotic heart disease of native coronary artery without angina pectoris; E11.22 Type 2 diabetes mellitus with diabetic chronic kidney disease; N18.3 Chronic kidney disease, stage 3 (moderate); E83.51 Hypocalcemia; D69.6 Thrombocytopenia, unspecified; I95.1 Orthostatic hypotension; F41.9 Anxiety disorder, unspecified; F32.9 Major depressive disorder, single episode, unspecified; G47.30 Sleep apnea, unspecified; Z95.810 Presence of automatic (implantable) cardiac defibrillator
CPT/HCPCS: 36415; 51702; 70450; 71045; 71046; 71250; 72125; 74230; 80048; 80053; 80061; 80076; 80202; 81003; 82150; 82550; 82553; 82805; 82962; 83605; 83690; 83735; 83880; 84100; 84132; 84145; 84443; 84484; 84550; 85025; 85610; 85652; 85730; 86140; 87040; 93005; 93306; 94640; 94760; 97163; 99291; J0692; J1100; J1720; J2310; J3411; J7030; J7605

== ENCOUNTER 2018-03-14 11:44 | Inpatient (IN) | payer OTHER ==
--- NOTE | 2018-03-14 12:49 | RAD REPORT ---
EXAM DESCRIPTION: RAD - Chest Single View - 03/14/2018 12:43 pm CLINICAL HISTORY: Shortness of breath, altered mental status COMPARISON: June 2017 TECHNIQUE: AP portable chest image was obtained 1229 hours . FINDINGS: Interstitial and alveolar opacification is present in the mid and lower right lung field n ew or progressive from the comparison. Patient has significant chronic interstitial lung disease. Nikolai g markings are prominent in the lower left lung field but not clearly different. Defibrillator is in place via left subclavian approach. Heart and vasculature are normal. No measurab le pleural effusion and no pneumothorax. No acute bony abnormality seen. No acute aortic findings russell pected. IMPRESSION: Moderate area of pneumonia in the mid and lower right lung field. Left base markings are prominent but not clearly different.
[2018-03-14 13:05] LABS: Absolute Lymphocytes (CBC) 0.8 K/uL (0.7-4.9); Absolute Monocytes 0.9 K/uL (0.1-1.3); Absolute Neutrophil 10.5 K/uL (1.8-8.0); Basophils % 0.3 % (0-1.3); Hematocrit 44.1 % (39.6-49.0); Lymphocytes % 6.3 % (15.3-44.8); MPV 9.9 fL (7.6-11.3); Monocytes % 7.2 % (3.3-12.3)
[2018-03-14 13:09] LABS: Protime INR 1.47
[2018-03-14 13:23] LABS: Blood Morphology Comment NOT SEEN (NOT SEEN); Platelet Estimate ADEQ; Urine White Blood Cell Casts OK
[2018-03-14 13:29] LABS: Albumin 3.4 g/dL (3.4-5.0); Bilirubin Direct 0.5 mg/dL (0-0.2); Magnesium 2.4 mg/dL (1.8-2.4); Potassium 4.4 mmol/L (3.5-5.1); Protein, Total 7.2 g/dL (6.4-8.2); Troponin (Emerg Dept Use Only) 0.26 ng/mL (0.0-0.045)
--- NOTE | 2018-03-14 13:29 | ER ---
Nurse's Notes [facility] Name: Jaden Kidd Age: 87 yrs Sex: Male : 1930 Arrival Date: 03/14/2018 Time: 11:49 Bed 5 Private MD: Autumn Vera C Diagnosis: Altered mental status, unspecified;Pneumonia, unspecified organism Presentation: 03/14 12:19 Presenting complaint: Child states: Family reports AMS since Tuesday, states, " He's ph just been doing strange things like going outside w/ his shirt off when it cold and saying it's 80 degrees out and driving to my office but not knowing why." Pt oriented to person, place and time in triage, states, " I feel fine." Denies pain, SOB, or urinary symptoms. Transition of care: patient was not received from another setting of care. Onset of symptoms was March 14, 2018. Risk Assessment: Do you want to hurt yourself or someone else? Patient reports no desire to harm self or others. Initial Sepsis Screen: Does the patient meet any 2 criteria? No. Patient's initial sepsis screen is negative. Care prior to arrival: None. 12:19 Method Of Arrival: Wheelchair ph 12:19 Acuity: YUDI 3 ph Historical: - Allergies: 12:22 Iodine; ph 12:22 PENICILLINS; ph - PMHx: 12:22 CHF; macular degeneration; Myocardial infarction; COPD; ph - PSHx: 12:22 Hernia repair; cardiac stent; prostatectomy; ph - Social history:: Smoking status: Patient/guardian denies using tobacco. Screenin:18 Abuse screen: Denies threats or abuse. Denies injuries from another. Nutritional iw screening: No deficits noted. Tuberculosis screening: No symptoms or risk factors identified. Fall Risk IV access (20 points). Vital Signs: 12:21 BP 143 / 55; Pulse 56; Resp 28; Temp 98.8; Pulse Ox 96% on R/A; Weight 83.91 kg; ph 13:19 BP 112 / 59; Pulse 78; Resp 30 S; Pulse Ox 95% on R/A; Pain 0/10; iw ED Course: 11:49 Patient arrived in ED. mr 11:49 Autumn Vera MD is Private Physician. mr 12:19 Brian Morrison MD is Attending Physician. kdr 12:21 Triage completed. ph 12:22 Arm band placed on. ph 12:42 X-ray completed. Portable x-ray completed in exam room. Patient tolerated procedure mh1 well. 12:42 XRAY Chest (1 view) In Process Unspecified. EDMS 12:50 Initial lab(s) drawn, by me, sent to lab. First set of blood cultures drawn. Inserted iw saline lock: 20 gauge in right antecubital area, using aseptic technique. Blood collected. 13:00 Monica Carrera, RN is Primary Nurse. iw 13:27 Abby Blevins MD is Hospitalizing Provider. kdr 14:04 CT Head Brain wo Cont In Process Unspecified. EDMS 14:07 CT completed. Patient tolerated procedure well. Patient moved to CT via stretcher. vr Patient moved back from CT. Administered Medications: 14:30 Drug: LevaQUIN 750 mg Volume: 150 ml; Route: IVPB; Infused Over: 90 mins; Site: right iw antecubital; Outcome: 13:28 Decision to Hospitalize by Provider. kdr 16:18 Patient left the ED. sv Signatures: Dispatcher [employer] EDMS Franny Hernandez RN RN sv Rittger, Kevin, MD MD [facility] Felipe, Dia Chowdhury 1 Monica Carrera, Carolynn Mendez RN, Patricia, RN RN
--- NOTE | 2018-03-14 13:29 | EDPHYS ---
Physician Documentation [facility] Name: Jaden Kidd Age: 87 yrs Sex: Male : 1930 Arrival Date: 03/14/2018 Time: 11:49 Bed 5 Private MD: Autumn Vera C ED Physician Brian Morrison HPI: 03/14 13:22 This 87 yrs old Male presents to ER via Wheelchair with complaints of Altered kdr Mental Status. 13:22 The patient presents with confusion. Onset: The symptoms/episode began/occurred kdr gradually, 3-4 days. Possible causes: CVA or TIA, sepsis. Associated signs and symptoms: Pertinent positives: confusion, weakness, Pertinent negatives: abdominal pain, agitation, blurred vision, chest pain, combativeness, confusion, diaphoresis. Current symptoms: In the emergency department the patient's symptoms have improved, mildly, is more alert, is less confused. Patient's baseline: Neuro: alert and fully oriented, Motor: no deficits, Ambulation: walks without assistance, Speech: normal for age. The patient has not experienced similar symptoms in the past. The patient has not recently seen a physician. Historical: - Allergies: 12:22 Iodine; ph 12:22 PENICILLINS; ph - PMHx: 12:22 CHF; macular degeneration; Myocardial infarction; COPD; ph - PSHx: 12:22 Hernia repair; cardiac stent; prostatectomy; ph - Social history:: Smoking status: Patient/guardian denies using tobacco. ROS: 13:22 Constitutional: Negative for fever, chills, and weight loss, Eyes: Negative for injury, kdr pain, redness, and discharge, Neck: Negative for injury, pain, and swelling, Cardiovascular: Negative for chest pain, palpitations, and edema, Respiratory: Negative for shortness of breath, cough, wheezing, and pleuritic chest pain, Back: Negative for injury and pain, : Negative for injury, bleeding, discharge, and swelling, MS/Extremity: Negative for injury and deformity, Skin: Negative for injury, rash, and discoloration, Psych: Negative for depression, anxiety, suicide ideation, homicidal ideation, and hallucinations, Allergy/Immunology: Negative for hives, rash, and allergies, Endocrine: Negative for neck swelling, polydipsia, polyuria, polyphagia, and marked weight changes, Hematologic/Lymphatic: Negative for swollen nodes, abnormal bleeding, and unusual bruising. 13:22 Abdomen/GI: Positive for abdominal pain, Negative for nausea and vomiting, nausea, vomiting, and diarrhea, abdominal distension, black/tarry stool, rectal pain. Exam: 13:22 Constitutional: This is a well developed, well nourished patient who is awake, alert, kdr and in no acute distress. Head/Face: Normocephalic, atraumatic. Eyes: Pupils equal round and reactive to light, extra-ocular motions intact. Lids and lashes normal. Conjunctiva and sclera are non-icteric and not injected. Cornea within normal limits. Periorbital areas with no swelling, redness, or edema. Neck: Trachea midline, no thyromegaly or masses palpated, and no cervical lymphadenopathy. Supple, full range of motion without nuchal rigidity, or vertebral point tenderness. No Meningismus. Chest/axilla: Normal chest wall appearance and motion. Nontender with no deformity. No lesions are appreciated. Cardiovascular: Regular rate and rhythm with a normal S1 and S2. No gallops, murmurs, or rubs. Normal PMI, no JVD. No pulse deficits. Back: No spinal tenderness. No costovertebral tenderness. Full range of motion. Skin: Warm, dry with normal turgor. Normal color with no rashes, no lesions, and no evidence of cellulitis. MS/ Extremity: Pulses equal, no cyanosis. Neurovascular intact. Full, normal range of motion. Neuro: Awake and alert, GCS 15, oriented to person, place, time, and situation. Cranial nerves II-XII grossly intact. Motor strength 5/5 in all extremities. Sensory grossly intact. Cerebellar exam grossly normal. Psych: Awake, alert, with orientation to person, place and time. Behavior, mood, and affect are within normal limits. Vital Signs: 12:21 BP 143 / 55; Pulse 56; Resp 28; Temp 98.8; Pulse Ox 96% on R/A; Weight 83.91 kg; ph 13:19 BP 112 / 59; Pulse 78; Resp 30 S; Pulse Ox 95% on R/A; Pain 0/10; iw MDM: 13:28 Patient medically screened. kdr 13:29 Data reviewed: vital signs, nurses notes, lab test result(s), radiologic studies. kdr Counseling: I had a detailed discussion with the patient and/or guardian regarding: the historical points, exam findings, and any diagnostic results supporting the discharge/admit diagnosis, lab results, radiology results, the need for further work-up and treatment in the hospital. 03/14 12:19 Order name: Basic Metabolic Panel; Complete Time: 13:31 kdr 03/14 12:19 Order name: CBC with Diff; Complete Time: 13:27 kdr 03/14 12:19 Order name: LFT's; Complete Time: 13:31 kdr 03/14 12:19 Order name: Magnesium; Complete Time: 13:31 kdr 03/14 12:19 Order name: NT PRO-BNP; Complete Time: 13:31 kdr 03/14 12:19 Order name: PT-INR; Complete Time: 13:21 kdr 03/14 12:19 Order name: Troponin (emerg Dept Use Only); Complete Time: 13:31 kdr 03/14 12:19 Order name: XRAY Chest (1 view); Complete Time: 12:56 kdr 03/14 12:20 Order name: Blood Culture Adult (2) kdr 03/14 12:54 Order name: Urine Culture kdr 03/14 13:08 Order name: CBC Smear Scan; Complete Time: 13:27 EDMS 03/14 13:36 Order name: Procalcitonin kdr 03/14 13:36 Order name: Lactate kdr 03/14 15:06 Order name: Urine Dipstick--Ancillary (enter results) eb 03/14 12:19 Order name: EKG; Complete Time: 12:21 kdr 03/14 12:19 Order name: Cardiac monitoring; Complete Time: 15:04 kdr 03/14 12:19 Order name: EKG - Nurse/Tech; Complete Time: 13:16 kdr 03/14 12:19 Order name: IV Saline Lock; Complete Time: 13:16 kdr 03/14 12:19 Order name: Labs collected and sent; Complete Time: 13:16 kdr 03/14 12:19 Order name: O2 Per Protocol; Complete Time: 13:17 kdr 03/14 12:20 Order name: O2 Sat Monitoring; Complete Time: 13:17 kdr 03/14 13:22 Order name: CT Head Brain wo Cont kdr Administered Medications: 14:30 Drug: LevaQUIN 750 mg Volume: 150 ml; Route: IVPB; Infused Over: 90 mins; Site: right iw antecubital; Disposition: 03/14/18 13:28 Hospitalization ordered by Abby Blevins for Inpatient Admission. Preliminary diagnosis are Altered mental status, unspecified, Pneumonia, unspecified organism. - Bed requested for Telemetry/MedSurg (Inpatient). - Status is Inpatient Admission. sv - Condition is Fair. - Problem is new. - Symptoms have improved. UTI on Admission? No Signatures: Dispatcher [employer] EDMS Franny Hernandez, RN RN Brian Morrison MD MD [facility] Monica Carrera RN RN Liyah Silva RN RN Eva Alvarez, CHRISTIAN GONZALES df Corrections: (The following items were deleted from the chart) 14:43 13:28 Hospitalization Ordered by Abby Blevins MD for Inpatient Admission. Preliminary df diagnosis is Altered mental status, unspecified; Pneumonia, unspecified organism. Bed requested for Telemetry/MedSurg (Inpatient). Status is Inpatient Admission. Condition is Fair. Problem is new. Symptoms have improved. UTI on Admission? No. kdr 16:18 14:43 03/14/2018 13:28 Hospitalization Ordered by Abby Blevins MD for Inpatient sv Admission. Preliminary diagnosis is Altered mental status, unspecified; Pneumonia, unspecified organism. Bed requested for Telemetry/MedSurg (Inpatient). Status is Inpatient Admission. Condition is Fair. Problem is new. Symptoms have improved. UTI on Admission? No. df
[2018-03-14] MEDS ORDERED: Levofloxacin 750mg IV 750 MG/150 ML BAG IV ONE (13:51)
--- NOTE | 2018-03-14 14:14 | RAD REPORT ---
EXAM DESCRIPTION: CT - Head Brain Wo Cont - 03/14/2018 2:04 pm CLINICAL HISTORY: Transient alteration of awareness COMPARISON: CT imaging May 2017 TECHNIQUE: Axial 5 mm thick images of the head were obtained without IV contrast. All CT scans are performed using dose optimization technique as appropriate and may include automated exposure control or mA/KV adjustment according to patient size. FINDINGS: No intracranial hemorrhage, mass, edema or shift of mid-line structures. No acute infarcti on changes seen. No cortical edema or sulcal effacement. Moderate severity atrophy and chronic ischem ic changes are present. An old right occipital CVA is present. Ventricles are in proportion to volume loss. Arterial calcifications are present. Intracranial findings are similar to comparison. Mastoid air cells and visualized portions of the paranasal sinuses are clear. No acute bony findings. IMPRESSION: Negative non-contrast CT head examination for acute finding Moderate severity atrophy and chronic ischemic change along with old right occipital CVA. Intracrani al findings are similar to May 2017.
[2018-03-14 16:19] LABS: Urine Blood 3+ (NEG); Urine Glucose NEGATIVE (NEG); Urine Protein TRACE (NEG)
[2018-03-14] MEDS ORDERED: ACETAMINOPHEN 500 MG TAB PO PRN (16:25)
[2018-03-14 16:58] VITALS: BMI 26.5
[2018-03-14] MEDS ORDERED: ENOXAPARIN 30 MG/0.3 ML SQ SCH (18:00)
[2018-03-14 18:35] LABS: Urine Appearance CLEAR; Urine Bilirubin NEGATIVE (NEG); Urine Blood 3+ (NEG); Urine Color YELLOW; Urine Glucose NEGATIVE (NEG); Urine Protein NEGATIVE (NEG); Urine Specific Gravity 1.015 (1.005-1.030); Urine Urobilinogen 0.2 mg/dL (0.2-1.0)
--- NOTE | 2018-03-14 18:41 | P.HP ---
Patient History Date of Service: 03/14/18 Primary Care Provider: Dr. Vera Reason for admission: Anastasiya mental status History of Present Illness: This is an 87-year-old male with history of CHF, defibrillator in place, COPD, chronic back pain admitted for intermittent confusion for the past 3-4 days. Per daughter at bedside, he has been is getting more more confused and intermittently will make sense when he talks. Couple days ago he drove to a doctor's office, started having intervention and was confused. The day prior to admission, patient was noted to go outside without a shirt, talking gibberish with the neighbor?. The daughter decided to bring patient to the ER. In the ER, patient was found to have a right mid and lower lobe pneumonia. He was started on IV Levaquin, and was admitted for further care. At baseline, patient is relatively independent, relatively functioning, he describes himself around. He lives with at home Allergies Penicillins Allergy (Verified 03/14/18 16:38) Itching iodine Adverse Reaction (Verified 03/14/18 16:38) Itching Home Medications: Carvedilol 1 tab PO BID 06/09/17 Diclofenac Sodium [Voltaren] 1 boubacar TOP BID 06/09/17 Gabapentin 1 tab PO QID 06/09/17 Pantoprazole Sodium [Protonix] 1 tab PO DAILY 06/09/17 Rivaroxaban [Xarelto*] 1 tab PO DAILY 06/09/17 Sacubitril/Valsartan [Entresto 49 mg-51 mg Tablet] 1 tab PO BID 06/09/17 Tiotropium [place] [Spiriva Respimat] 2 puff PO DAILY 06/09/17 Hydrocodone/Acetaminophen [Hydrocodone-Acetamin 10-325 mg] 1 tab PO QIDP PRN Simvastatin 1 tab PO BEDTIME 06/10/17 traMADol HCL [Ultram*] 1 tab PO Q6HP PRN 06/10/17 Diclofenac Sodium [Voltaren] 23.2 gm TP 6XD PRN 06/13/17 - Past Medical/Surgical History Diabetic: No -: NE -: CHF -: macular generate disease -: hyperlipidemia -: chronic pain -: cardiac stents -: hernia repair -: pacemaker -: prostatectomy - Social History Smoking Status: Former smoker Alcohol use: No CD- Drugs: No Caffeine use: Yes Place of Residence: Home Review of Systems 10-point ROS is otherwise unremarkable Physical Examination - Vital Signs Temperature: 97.5 F Blood Pressure: 128/72 Pulse: 68 Respirations: 20 Pulse Ox (%): 94 - Physical Exam General: Alert, In no apparent distress, Oriented x3, Other (He was sleepy, but upon waking was answering questions appropriately. He is hard of hearing, so did have to yeah little bit. But he was following commands.) HEENT: Atraumatic, PERRLA, Mucous membr. moist/pink, EOMI, Sclerae nonicteric Neck: Supple, 2+ carotid pulse no bruit, No LAD, Without JVD or thyroid abnormality Respiratory: Diminished, Crackles/rales Cardiovascular: Regular rate/rhythm, Normal S1 S2 Gastrointestinal: Normal bowel sounds, No tenderness Musculoskeletal: No tenderness Integumentary: No rashes Neurological: Normal gait, Normal speech, Normal strength at 5/5 x4 extr, Normal tone, Normal affect Lymphatics: No axilla or inguinal lymphadenopathy - Studies Laboratory Data (last 24 hrs) 03/14/18 12:55: PT 17.4 H, INR 1.47 03/14/18 12:55: WBC 12.2 H, Hgb 14.8, Hct 44.1, Plt Count 174 03/14/18 12:55: Sodium 147 H, Potassium 4.4, BUN 66 H, Creatinine 1.89 H, Glucose 125 H, Magnesium 2.4, Total Bilirubin 2.0 H, AST 18, ALT 17, Alkaline Phosphatase 85 Assessment and Plan - Plan This is a 87-year-old male with: Sepsis Meets sepsis criteria with tachypnea, elevated WBC count. He does remain afebrile, with normal heart rate. Source of infection: Likely pulmonary source. Lactic acid normal, pro calculated. Continue IV Levaquin Will have to be careful on giving IV fluids as patient has severe CHF, last known ejection fraction around 28, per family. Will start gentle hydration Right basilar pneumonia Leukocytosis, left shift IV Levaquin Oxygen per protocol, as needed Systolic CHF, chronic Stable, restart home medications once reconciled Defibrillator in place Admitted with tele monitoring. Seems to be stable at this time. Chronic obstructive pulmonary disease Nebulizing treatments as needed. Restart home medications once reconciled. Oxygen as needed Chronic back pain Per family, patient on very regimented schedule for pain medications. Will restart home pain medications Patient sees Dr. Campos for pain management as an outpatient DVT prophylaxis: Lovenox GI prophylaxis: Not needed Diet: Heart healthy Disposition: Admit to floor with tele monitoring. Pending symptomatic improvement. - Advance Directives Does patient have a Living Will: Yes Does patient have a Durable POA for Healthcare: Yes - Code Status/Comfort Care Code Status Assessed: Yes Code Status: Do Not Resuscitate Physician Review: Patient Assessed, Agree with Above Assessment and Plan Time Spent Managing Pts Care (In Minutes): 55
[2018-03-14] MEDS ORDERED: HYDROCODONE/APAP 10/325 TAB PO PRN (18:46)
[2018-03-14] MEDS ORDERED: CARVEDILOL 3.125 MG TAB PO SCH (19:00)
[2018-03-14] MEDS ORDERED: Levofloxacin500mg IV 500 MG/100 ML BAG IV SCH (19:00)
[2018-03-14 19:27] LABS: Urine Bacteria <20 /HPF (NONE SEEN); Urine Culture Reflex Order NOT NEEDED; Urine Microscopic Reflex ORDER UMIC; Urine RBC >50 /HPF (NONE SEEN)
[2018-03-14] MEDS: IPRATROPIUM BROM 0.5MG/2.5ML NEB SCH (19:57)
[2018-03-14] MEDS: ALBUTEROL 2.5 MG/3 ML NEB SOL NEB SCH (19:57)
[2018-03-14] MEDS: SACUBITRIL/VALSARTAN 49/51 MG TAB PO SCH (20:35)
[2018-03-14] MEDS: MIRTAZAPINE 15 MG TAB PO SCH (20:35)
[2018-03-14] MEDS: GABAPENTIN 300 MG CAP PO SCH (20:36)
[2018-03-14] MEDS ORDERED: GABAPENTIN 300 MG CAP PO SCH (21:00)
[2018-03-15] MEDS: ALBUTEROL 2.5 MG/3 ML NEB SOL NEB SCH ×4 (02:00→19:45)
[2018-03-15] MEDS: IPRATROPIUM BROM 0.5MG/2.5ML NEB SCH ×4 (02:00→19:45)
[2018-03-15 06:38] LABS: Absolute Lymphocytes (CBC) 0.8 K/uL (0.7-4.9); Absolute Monocytes 0.8 K/uL (0.1-1.3); Absolute Neutrophil 5.7 K/uL (1.8-8.0); Basophils % 0.2 % (0-1.3); Eosinophils % 0.3 % (0-4.4); Hematocrit 41.5 % (39.6-49.0); Lymphocytes % 11.3 % (15.3-44.8); MPV 10.4 fL (7.6-11.3); Monocytes % 11.5 % (3.3-12.3); RBC Red Blood Cell Count 4.23 M/uL (4.33-5.43)
[2018-03-15 06:49] LABS: Albumin 3.2 g/dL (3.4-5.0); Bilirubin Total 2.4 mg/dL (0.2-1.0); Potassium 3.6 mmol/L (3.5-5.1); Protein, Total 6.8 g/dL (6.4-8.2)
[2018-03-15] MEDS ORDERED: POTASSIUM CL SA 10 MEQ TAB PO ONE (07:30)
--- NOTE | 2018-03-15 08:02 | EKG ---
Test Date: 2018-03-14 Test Time: 12:51:14 Travel Journalist: MARICRUZ MEASUREMENT RESULTS: Intervals: Rate: 68 KS: QRSD: 190 QT: 536 QTc: 569 [place]: P: KS: QRS: -73 T: 93 INTERPRETIVE STATEMENTS: Ventricular-paced rhythm with frequent and consecutive premature ventricular complexes Abnormal ECG Compared to ECG 06/09/2017 18:31:41 Ventricular premature complex(es) now present Electronically Signed On 03-15-18 08:01:20 HAND INSPECTOR by Juan Kasper
[2018-03-15] MEDS ORDERED: INFLUENZA VACCINE (for 3y+) 0.5 ML DOSE IMVAC ONE (09:00)
[2018-03-15] MEDS ORDERED: PNEUMOCOCCAL VACCINE 0.5 ML IMVAC ONE (09:00)
[2018-03-15] MEDS: FUROSEMIDE 40 MG TABLET PO SCH (09:41)
[2018-03-15] MEDS: SACUBITRIL/VALSARTAN 49/51 MG TAB PO SCH ×2 (09:42→20:55)
[2018-03-15] MEDS: HYDROCODONE/APAP 10/325 TAB PO SCH ×3 (09:43→20:55)
[2018-03-15] MEDS: SERTRALINE HCL 50 MG TAB PO SCH (09:43)
[2018-03-15] MEDS: GABAPENTIN 300 MG CAP PO SCH ×4 (09:46→20:54)
[2018-03-15] MEDS: Levofloxacin 250mg IV 250 MG/50 ML BAG IV SCH (14:55)
[2018-03-15] MEDS: RIVAROXABAN 15 MG TABLET PO SCH (16:35)
[2018-03-15] MEDS: MIRTAZAPINE 15 MG TAB PO SCH (20:54)
--- NOTE | 2018-03-16 01:22 | PN ---
Date of Progress Note: 03/15/2018 Subjective: The patient was seen this morning for followup. He was sitting at bedside and was very upset, crying, appeared depressed and not happy being in the hospital, and one of his concern was nuno t he was not getting his pain medication as he wanted, at home he takes 4 times a day [id number], and here in the hospital, it was ordered on a p.r.n. basis, so we will change his pain medication order on a scheduled basis the way he takes at home. He has a lot of cough, chest congestion, coughs up dark greenish colored mucus, and I did see that this morning when I was in room with him. Denies any vomiting, diarrhea. Objective: Vital Signs: Reviewed. HEENT: Unremarkable. Lungs: Presence of rales in right lower lung region, not in any respiratory distress. Cardiac: Heart sounds normal. Abdomen: Soft. Bowel sounds normal. No guarding, rigidity, tenderness, distention. Extremities: No leg edema. Laboratory Data: White count today 7.4, hemoglobin 14.2, platelets 151. Sodium 146, potassium 3.6, chloride 110, bicarb 28, BUN 55, creatinine 1.52, glucose 113. Liver function tests unremarkable. T he patient's blood culture remains negative. Urine culture negative. His chest x-ray from yesterday shows moderate area of pneumonia in the mid and lower right lung field. Impression: 1.Pneumonia. 2.Chronic kidney disease stage 3. 3.Chronic systolic congestive heart failure. 4.Coronary artery disease. 5.Chronic obstructive pulmonary disease. Plan: We will go ahead and continue current medications. Home medications will be continued includi ng his pain medication which will be given every 6 hours on a scheduled basis. We will continue [facility] treatment, physical therapy to help ambulate the patient. We will continue current antibiotic which is Levaquin, and for depression, we will start him on sertraline. We will repeat blood work to morning. Details and plan of treatment discussed with the patient. Sputum Gram stain and spu myke culture were ordered. DINO/MODL Voice ID: [id number] Report ID: [id number]
[2018-03-16] MEDS: ALBUTEROL 2.5 MG/3 ML NEB SOL NEB SCH ×4 (01:55→20:13)
[2018-03-16] MEDS: IPRATROPIUM BROM 0.5MG/2.5ML NEB SCH ×4 (01:55→20:13)
[2018-03-16] MEDS: HYDROCODONE/APAP 10/325 TAB PO SCH ×4 (02:00→21:44)
[2018-03-16 06:41] LABS: Absolute Lymphocytes (CBC) 0.8 K/uL (0.7-4.9); Absolute Monocytes 0.8 K/uL (0.1-1.3); Absolute Neutrophil 6.4 K/uL (1.8-8.0); Basophils % 0.3 % (0-1.3); Eosinophils % 1.1 % (0-4.4); Hematocrit 43.6 % (39.6-49.0); Lymphocytes % 10.4 % (15.3-44.8); Monocytes % 9.7 % (3.3-12.3); RBC Red Blood Cell Count 4.43 M/uL (4.33-5.43)
[2018-03-16 07:16] LABS: Albumin 3.2 g/dL (3.4-5.0); Bilirubin Total 1.9 mg/dL (0.2-1.0); Magnesium 2.5 mg/dL (1.8-2.4); Potassium 4.1 mmol/L (3.5-5.1); Protein, Total 7.1 g/dL (6.4-8.2)
[2018-03-16] MEDS: SACUBITRIL/VALSARTAN 49/51 MG TAB PO SCH ×2 (08:46→21:51)
[2018-03-16] MEDS: GABAPENTIN 300 MG CAP PO SCH ×4 (08:47→21:44)
[2018-03-16] MEDS: SERTRALINE HCL 50 MG TAB PO SCH (08:47)
[2018-03-16] MEDS: FUROSEMIDE 40 MG TABLET PO SCH (08:47)
[2018-03-16] MEDS: Levofloxacin 250mg IV 250 MG/50 ML BAG IV SCH (13:29)
[2018-03-16] MEDS: RIVAROXABAN 15 MG TABLET PO SCH (17:29)
[2018-03-16] MEDS: MIRTAZAPINE 15 MG TAB PO SCH (21:44)
[2018-03-17] MEDS: HYDROCODONE/APAP 10/325 TAB PO SCH ×3 (01:47→14:14)
--- NOTE | 2018-03-17 02:20 | PN ---
Date of Progress Note: 03/16/2018 Subjective: The patient was seen this morning for followup. He was lying in bed, feeling much tone r today compared to yesterday. No new complaints or problems reported by him. Objective: Vital signs: Reviewed. HEENT: Examination unremarkable. Lungs: Bilateral good equal air entry. Not in any respiratory distress. Presence of some rales in the right lower lung field. Overall, better today than yesterday. Heart: Sounds normal. Abdomen: Soft. Bowel sounds normal. No guarding, rigidity, tenderness, or distention. Extremities: No leg edema. Laboratory Data: White count 8.1, hemoglobin 14.9, platelets 167. Sodium 145, potassium 4.1, chlori de 112, bicarb 25, BUN 43, creatinine 1.39, glucose 138, procalcitonin 0.77. Impression: 1.Pneumonia. 2.Chronic kidney disease, stage 3. 3.Chronic systolic congestive heart failure. 4.Coronary artery disease. 5.Chronic obstructive pulmonary disease. 6.Osteoarthritis, multiple sites. Plan: We will go ahead and continue current medication, antibiotics. We will repeat chest x-ray shmuel orrow. Depending on the patient's condition and x-ray result, we will decide if we can possibly discharge him either tomorrow or sometime over the weekend. Details and plan of treatment discussed with him. Ambulation was encouraged. DINO/ELVIS Voice ID: [id number] Report ID: [id number]
[2018-03-17] MEDS: IPRATROPIUM BROM 0.5MG/2.5ML NEB SCH ×3 (02:35→14:00)
[2018-03-17] MEDS: ALBUTEROL 2.5 MG/3 ML NEB SOL NEB SCH ×3 (02:35→14:00)
[2018-03-17 05:15] LABS: Absolute Lymphocytes (CBC) 1.2 K/uL (0.7-4.9); Absolute Monocytes 0.7 K/uL (0.1-1.3); Absolute Neutrophil 5.3 K/uL (1.8-8.0); Basophils % 0.2 % (0-1.3); Eosinophils % 3.4 % (0-4.4); Hematocrit 44.2 % (39.6-49.0); Lymphocytes % 16.2 % (15.3-44.8); Monocytes % 9.6 % (3.3-12.3); RBC Red Blood Cell Count 4.49 M/uL (4.33-5.43)
[2018-03-17 05:41] LABS: Albumin 3.3 g/dL (3.4-5.0); Bilirubin Total 1.3 mg/dL (0.2-1.0); Potassium 3.8 mmol/L (3.5-5.1); Protein, Total 7.4 g/dL (6.4-8.2)
[2018-03-17] MEDS: GABAPENTIN 300 MG CAP PO SCH ×2 (08:18→14:13)
[2018-03-17] MEDS: SACUBITRIL/VALSARTAN 49/51 MG TAB PO SCH (08:19)
[2018-03-17] MEDS: SERTRALINE HCL 50 MG TAB PO SCH (08:20)
[2018-03-17 08:21] VITALS: O2SAT 98
[2018-03-17] MEDS: FUROSEMIDE 40 MG TABLET PO SCH (08:34)
[2018-03-17] MEDS ORDERED: POTASSIUM CL SA 10 MEQ TAB PO ONE (09:00)
[2018-03-17 12:04] VITALS: BP 129/62; TEMP 97
--- NOTE | 2018-03-17 13:09 | RAD REPORT ---
EXAM DESCRIPTION: Jose Pa And Lat (2 Views)03/17/2018 1:01 pm CLINICAL HISTORY: Cough COMPARISON: March 14, 2018 FINDINGS: Right lung opacities have mildly improved. Left lung appears clear of acute infiltrate. T he heart is moderately enlarged. Pacemaker leads are in place. IMPRESSION: Mild improvement in right lung opacities likely represent a combination of pneumonia and pulmonary fibrosis
[2018-03-17] MEDS: Levofloxacin 250mg IV 250 MG/50 ML BAG IV SCH (14:14)
[2018-03-17] MEDS ORDERED: CARVEDILOL 3.125 MG TAB PO SCH (17:00)
--- NOTE | 2018-03-18 04:43 | DS ---
Date of Discharge: 03/17/2018 Disposition: Discharged to go home. Physical Examination: HEENT: Unremarkable. Lungs: Clear to auscultation. Heart: Sounds normal. Abdomen: Soft bowel sounds normal. No guarding, rigidity, tenderness, or distention. Extremities: No leg edema. Discharge Medications And Instructions: 1.Continue prior home medication. 2.Take Levaquin 250 mg daily for 10 days. 3.Follow up at my office per scheduled appointment on 03/22/2018. Hospital Course: An 87-year-old male patient who was admitted to the hospital with pneumonia problem . Please see dictated H and P for more information. The patient has COPD and chronic systolic conges tive heart failure, those problems remain stable. He was admitted to hospital with pneumonia problem . He was started on antibiotic, which was IV Levaquin. He tolerated that very well. His home medic ations were continued and when he came in, his white count was 12.2, and that normalized with IV anti biotic. Last white count today 7.6, hemoglobin 15, platelets 190. Last chemistry: Today, sodium 143 , potassium 3.8, chloride 109, bicarb 26, BUN 46, creatinine 1.52, glucose 115. He started ambulatin g well. Physical Therapy was consulted. Blood culture remained negative. Urine culture remained ne gative. His chest x-ray was repeated today, shows improvement in right lung opacity. Impression: The patient was discharged to go home in stable condition. Final Diagnoses: 1.Pneumonia. 2.Chronic obstructive pulmonary disease. 3.Chronic systolic congestive heart failure. 4.Coronary artery disease. 5.Chronic kidney disease stage 3. 6.Depression. 7.Anxiety. DINO/MODL Voice ID: [id number] Report ID: [id number]
== END 2018-03-17 16:56 | disposition home or self-care (01) | DRG 194 ==
LOC: ER 11:44 → ERHOLD 14:00 → 2ND 16:01
PROVIDERS: ADMIT Family Medicine; ATTEND Internal Medicine
DX: J18.9 Pneumonia, unspecified organism (principal); I50.22 Chronic systolic (congestive) heart failure; E78.5 Hyperlipidemia, unspecified; J44.9 Chronic obstructive pulmonary disease, unspecified; N18.3 Chronic kidney disease, stage 3 (moderate); I25.10 Atherosclerotic heart disease of native coronary artery without angina pectoris; M15.9 Polyosteoarthritis, unspecified; F41.8 Other specified anxiety disorders; G89.29 Other chronic pain; I25.2 Old myocardial infarction; Z23 Encounter for immunization; Z87.891 Personal history of nicotine dependence; Z95.810 Presence of automatic (implantable) cardiac defibrillator
CPT/HCPCS: 36415; 70450; 71045; 71046; 80048; 80053; 80076; 81003; 81015; 83605; 83735; 83880; 84145; 84484; 85025; 85610; 87040; 87086; 87088; 90670; 93005; 94640; 94760; 96374; 97116; 97163; 97530; 99284; G0008; G0009; J1650; Q2035

== ENCOUNTER 2019-01-01 14:02 | Inpatient (IN) | payer OTHER ==
[2019-01-01] MEDS ORDERED: LEVALBUTEROL 1.25 MG/3 ML NEB ONE (14:22)
[2019-01-01] MEDS ORDERED: MORPHINE 2 MG/ML SYR ONE (14:31)
[2019-01-01 14:33] LABS: Absolute Lymphocytes (CBC) 1.1 K/uL (0.7-4.9); Basophils % 0.3 % (0-1.3); Hematocrit 43.4 % (39.6-49.0); Lymphocytes % 9.2 % (15.3-44.8); MPV 10.5 fL (7.6-11.3); RBC Red Blood Cell Count 4.38 M/uL (4.33-5.43)
[2019-01-01 14:34] LABS: Protime INR 1.18
[2019-01-01 14:59] LABS: Magnesium 3.2 mg/dL (1.8-2.4); Potassium 3.7 mmol/L (3.5-5.1); Troponin (Emerg Dept Use Only) 0.16 ng/mL (0.0-0.045)
--- NOTE | 2019-01-01 15:22 | RAD REPORT ---
EXAM DESCRIPTION: CT - Thorax Wo Con - 01/01/2019 2:47 pm CLINICAL HISTORY: Fall, rib pain, shortness of breath COMPARISON: March 2018 chest exam. TECHNIQUE: Axial 5 mm thick images of the chest were obtained without IV contrast. All CT scans are performed using dose optimization technique as appropriate and may include automated exposure control or mA/KV adjustment according to patient size. FINDINGS: Patient has underlying fibrotic lung change. Parenchymal assessment is compromised by brooks on. Interstitial opacification and scattered alveolar opacities are present in the posterior and infe rior aspect of the right upper lobe. Right middle lobe shows minimal patchy alveolar opacities in the posterior lateral aspect. There is interstitial and alveolar opacities scattered in the right lower lobe. Right lung field bronchial clinton appear slightly thickened. No endobronchial lesion. No acute p arenchymal changes suspected in the left lung field. Findings are favored to be pneumonia rather than fall related pulmonary contusion. No pleural thickening or pleural effusion. No pneumothorax. No abnormal mediastinal or hilar masses or lymphadenopathy seen. No gross aortic or pulmonary artery finding suspected. Assessment is limited in the absence of IV contrast. No pericardial thickening or effusion. Heart size is slightly enlarged. No chest wall mass or abnormal axillary lymphadenopathy. No displaced rib fractures identified. No clavicle fracture. The inferior ribcage is not fully imaged , extending below the usual [id number] for a CT chest study. The anterior right fifth and sixth ri bs show slight cortical irregularity or buckling. Nondisplaced greenstick type fractures would be pos sible and can be correlated with clinical presentation. No similar finding in the left-sided rib cage . Multiple wedge compression fracture deformities are seen in the midthoracic spine. Acute fracture loraine es are not seen. IMPRESSION: Right lung field interstitial and alveolar opacities are present involving all 3 lobes. Pattern favors pneumonia rather than trauma related pulmonary contusion. No pneumothorax or pleural f luid collection. No gross rib fracture is seen. There are subtle cortical changes in the anterior fifth and sixth rib s on the right that could be greenstick type fractures. Multiple wedge compressions of the midthoracic spine matches March chest examination.
[2019-01-01] MEDS ORDERED: Levofloxacin500mg IV 500 MG/100 ML BAG IV ONE (15:31)
[2019-01-01] MEDS ORDERED: FUROSEMIDE 40 MG/4 ML VIAL ONE (15:31)
[2019-01-01] MEDS ORDERED: NA CHLORIDE 0.9% 500 ML ONE (15:31)
--- NOTE | 2019-01-01 15:47 | RAD REPORT ---
EXAM DESCRIPTION: RAD - Pelvis - 01/01/2019 3:14 pm CLINICAL HISTORY: Fall, pelvic pain COMPARISON: None. TECHNIQUE: AP imaging of the pelvis was obtained. FINDINGS: Lower lumbar degenerative changes are present only partially imaged. No fracture of the pe lvis identifiable. No pathologic bone process. No hip joint fracture. Numerous clips are along the fl oor the pelvis. IMPRESSION: No fracture or acute pelvic finding.
--- NOTE | 2019-01-01 15:48 | RAD REPORT ---
EXAM DESCRIPTION: RAD - Femur Right - 01/01/2019 3:14 pm CLINICAL HISTORY: Fall, right femur pain COMPARISON: None. FINDINGS: No fracture, dislocation or periosteal reaction noted. No acute or suspicious bony finding . No AVN or focal femoral head abnormality. No air or foreign body in the soft tissues. Arterial tree calcifications are present. IMPRESSION: Negative right femur examination for fracture or other acute finding.
--- NOTE | 2019-01-01 15:49 | RAD REPORT ---
EXAM DESCRIPTION: RAD - Femur Left - 01/01/2019 3:14 pm CLINICAL HISTORY: Fall, left femur pain COMPARISON: None. FINDINGS: No fracture is identified. There is no dislocation or periosteal reaction noted. No acute or suspicious bony finding. No AVN or focal femoral head abnormality. Arterial calcifications are pr esent. No suspicious soft tissue finding. IMPRESSION: Negative left femur examination for fracture or other acute finding.
--- NOTE | 2019-01-01 15:51 | RAD REPORT ---
EXAM DESCRIPTION: CT - [id number] - 01/01/2019 2:47 pm CLINICAL HISTORY: Fall, head and neck injury, anticoagulation therapy COMPARISON: None. TECHNIQUE: Axial 5 mm thick images of the head were obtained. Axial 2 mm thick images of the cervic al spine were obtained with sagittal and coronal reconstruction images generated and reviewed. All CT scans are performed using dose optimization technique as appropriate and may include automated exposure control or mA/KV adjustment according to patient size. FINDINGS: No intracranial hemorrhage, mass, edema or acute intracranial finding. No acute cortical based infarc tion. No cortical edema or sulcal effacement. Advanced atrophy and chronic ischemic changes are prese nt. Old infarction changes in the right occipital lobe noted. Ventricles are in proportion to volume loss. Arterial calcifications are present. Mastoid air cells and paranasal sinuses are clear. No glob e or orbit abnormality seen. Cervical body height and alignment are normal. Significant C5-6 disc and endplate degenerative change present. No significant foraminal stenoses. Facet joint degenerative changes are present. Advanced d egenerative change present at the dens anterior C1 level. No fracture or acute bony abnormality. Cent ral canal detail is inherently limited. No paraspinal mass or hematoma. IMPRESSION: Atrophy and chronic ischemic changes are present as detailed. No acute intracranial find ing. Cervical spine degenerative change as detailed. No acute finding.
--- NOTE | 2019-01-01 15:54 | ER ---
Nurse's Notes [facility] Name: Jaden Kidd Age: 88 yrs Sex: Male : 1930 Arrival Date: 01/01/2019 Time: 14:08 Bed 4 Private MD: Diagnosis: Superficial injury of head;Multi-lobar pneumonia of right lung;Dehydration;Unspecified combined systolic (congestive) and diastolic (congestive) heart failure;Dyspnea, unspecified Presentation: 01/01 14:09 Presenting complaint: EMS states: pt was at home when family arrived and found him on sg the ground, pt reports loosing consciousness and hitting the right side of head and right arm on unknown object, pt currently takes xarelto, pt reports to EMS shortness of breath for several days worsening this morning while going to the [facility] for swim activity. Care prior to arrival: Medication(s) given: Albuterol Neb x 3, Atrovent Neb x 1, Solumedrol 125 mg IV initiated. 20 GA, in the right antecubital area. Mechanism of Injury: Fall from standing position. Trauma event details: Injury occurred in the [facility], Injury occurred: January 01, 2019. Activity prior to arrival: loss of consciousness. 14:09 Acuity: YUDI 2 sg 14:09 Method Of Arrival: EMS: [facility] Trauma Activation: Alert Physician: ED Physician; Name: ; Notified At: ; Arrived At: Physician: General Surgeon; Name: ; Notified At: ; Arrived At: Physician: Radiology; Name: ; Notified At: ; Arrived At: Physician: Respiratory; Name: ; Notified At: ; Arrived At: Physician: Lab; Name: ; Notified At: ; Arrived At: Historical: - Allergies: 14:14 Iodine; sg 14:14 PENICILLINS; sg - PMHx: 14:14 CHF; COPD; macular degeneration; Myocardial infarction; sg - PSHx: 14:14 Hernia repair; cardiac stent; prostatectomy; sg - Immunization history: Last tetanus immunization: unknown. - Family history:: not pertinent. - Hospitalizations: : No recent hospitalization is reported. Screenin:35 Abuse screen: Denies threats or abuse. Denies injuries from another. Nutritional ca1 screening: No deficits noted. Tuberculosis screening: No symptoms or risk factors identified. Fall Risk Fall in past 12 months (25 points). IV access (20 points). Ambulatory Aid- Crutches/Cane/Walker (15 pts). Gait- Impaired (20 pts.). Total Farr Fall Scale indicates High Risk Score (45 or more points). Fall prevention measures have been instituted. Side Rails Up X 2 Frequent Obs/Assessments Occuring Family Present and informed to notify staff if the need to leave the bedside As available patient and family educated on Fall Prevention Program and Strategies. Primary Survey: 14:09 NO uncontrolled hemorrhage observed. A: The patient is alert. Airway: patent, O2 via sg Nebulizer Mask Oral cavity: clear, Trachea midline. Breathing/Chest: Respiratory pattern: regular, Respiratory effort: spontaneous, unlabored, Breath sounds: diminished, in right posterior lower lobe crackles, in left posterior lower lobe Chest inspection: symmetrical rise and fall of the chest. Circulation: Heart tones present. Pulses: palpable right radial artery, right posterior tibial artery, left radial artery and left posterior tibial artery. Skin color: pale, Skin temperature: warm. Disability Alert. Exposure/Environment: All clothing and personal items were removed. Forensic evidence collection is not deemed to be indicated at this time. Items placed in patient belonging bag. There is evidence of uncontrolled external hemorrhage. Provider notified immediately. Methods to control bleeding applied. Obvious injury(ies) are noted at this time: skin tears to right upper arm, abrasion to right side of forehead that is not actively bleeding. Secondary Survey: 14:15 HEENT: Head Other abrasion to right side of face, temporal area, dried blood noted. sg Gastrointestinal: Abdomen is soft, non-distended, obese, Bowel sounds present in all quadrants. : No signs and/or symptoms were reported regarding the genitourinary system. Musculoskeletal: Circulation, motion, and sensation intact. Range of motion: intact in all extremities, pt reports tremors to right side of body and right leg, started last night PER EMS report. Assessment: 16:22 Reassessment: Patient appears in no apparent distress at this time. Patient and/or sg family updated on plan of care and expected duration. Pain level reassessed. 16:30 General: Appears in no apparent distress. Neuro: Level of Consciousness is awake, sg alert, obeys commands, Oriented to person, place, Speech is normal, Facial symmetry appears normal. Cardiovascular: Patient's skin is warm and dry. Respiratory: Airway is patent Respiratory effort is unlabored, Respiratory pattern is regular, symmetrical. Derm: Skin is pink, warm \T\ dry. 16:57 Reassessment: Kaitlin GONZALES for ICU requests a diet order, verbal order for NPO sg until cleared from BiPap then advance to Heart Healthy Diet, Kaitlin GONZALES verbalized understanding and the order put into [employer] at this time. Vital Signs: 14:14 Pulse 68 MON; Resp 34; Temp 97.7; Pulse Ox 88% on R/A; sg 14:14 BP 132 / 77; sg 14:16 Pulse Ox 96% on 4 lpm NC; sg 15:30 BP 117 / 48; Pulse 112; Resp 17; Temp 97.6(TE); Pulse Ox 94% on 4 lpm NC; mh5 15:37 Weight 89.81 kg (R); iw 16:26 BP 142 / 60; Pulse 70 MON; Resp 20 S; Pulse Ox 98% on R/A; sg [place] Coma Score: 14:14 Eye Response: to voice(3). Verbal Response: oriented(5). Motor Response: obeys sg commands(6). Total: 14. 14:20 Eye Response: spontaneous(4). Verbal Response: oriented(5). Motor Response: obeys rn commands(6). Total: 15. 15:10 Eye Response: to voice(3). Verbal Response: oriented(5). Motor Response: obeys sg commands(6). Total: 14. 15:36 Eye Response: spontaneous(4). Verbal Response: oriented(5). Motor Response: obeys rn commands(6). Total: 15. Trauma Score (Adult): 14:14 Eye Response: to voice(0); Verbal Response: oriented(1); Motor Response: obeys sg commands(2); Systolic BP: > 89 mm Hg(4); Respiratory Rate: 10 to 29 per min(4); [place] Score: 14; Trauma Score: 11 15:10 Eye Response: to voice(0); Verbal Response: oriented(1); Motor Response: obeys sg commands(2); Systolic BP: > 89 mm Hg(4); Respiratory Rate: 10 to 29 per min(4); [place] Score: 14; Trauma Score: 11 ED Course: 14:08 Patient arrived in ED. sg 14:14 Abelardo Felder MD is Attending Physician. rn 14:14 Triage completed. sg 14:15 Oxygen administration via nasal cannula \T\ 4L/min Response to oxygen therapy: symptoms sg improved. 14:18 Initial lab(s) drawn, by me, sent to lab. Maintain EMS IV. Dressing intact. Good blood ca1 return noted. Site clean \T\ dry. Gauge \T\ site: 20G RAC. 14:28 XRAY Chest (1 view) In Process Unspecified. EDMS 14:35 Patient has correct armband on for positive identification. Placed in gown. Bed in low ca1 position. Call light in reach. Side rails up X2. nuclear monitoring technician on. Pulse ox on. NIBP on. Warm blanket given. 14:35 No provider procedures requiring assistance completed. ca1 14:47 CT completed. Patient tolerated procedure well. Patient moved to radiology via vm2 stretcher. 14:47 CT Head C Spine In Process Unspecified. EDMS 14:47 CT Chest Wo Con In Process Unspecified. EDMS 15:11 Candelario Cunningham, RN is Primary Nurse. sg 15:15 XRAY Pelvis In Process Unspecified. EDMS 15:15 XRAY Femur RIGHT In Process Unspecified. EDMS 15:15 XRAY Femur LEFT In Process Unspecified. EDMS 15:26 Inserted saline lock: 22 gauge in left antecubital area, using aseptic technique. Blood ca1 collected. 15:27 First set of blood cultures drawn by me. ca1 15:40 Second set of blood cultures drawn by lab staff. ca1 15:48 EKG done, by computer technician. reviewed by Abelardo Felder MD. sm3 15:52 Autumn Vera MD is Hospitalizing Provider. rn Administered Medications: 14:25 Drug: Xopenex (3) 1.25 mg Route: Inhalation; ca1 14:34 Drug: morphine 2 mg {Note: RASS - 0.} Route: IVP; Site: right antecubital; ca1 15:55 Follow up: Response: No adverse reaction; Pain is decreased ca1 15:38 Drug: NS 0.9% 500 ml Route: IV; Rate: bolus; Site: left antecubital; ca1 16:42 Follow up: Response: No adverse reaction; IV Status: Completed infusion; IV Intake: sg 500ml 15:38 Drug: Lasix 40 mg Route: IVP; Site: left antecubital; ca1 17:03 Follow up: Urine output 1700 ml; Response: No adverse reaction sg 15:55 Drug: LevaQUIN 500 mg Volume: 100 ml; Route: IVPB; Infused Over: 60 mins; Site: left ca1 antecubital; 17:02 Follow up: Response: No adverse reaction; IV Status: Completed infusion sg 16:05 Drug: vancoMYCIN 1 grams Route: IVPB; Infused Over: 2 hrs; Site: right antecubital; ca1 17:00 Follow up: Response: No adverse reaction; IV Status: Infusion continued upon admission sg Intake: 16:42 IV: 500ml; Total: 500ml. sg 16:24 in the urinal sg Output: 16:24 Urine: 400ml (Voided); Total: 400ml. sg 17:03 Urine: 1700ml; Total: 2100ml. sg 16:24 in the urinal sg Outcome: 15:54 Decision to Hospitalize by Provider. rn 17:40 Patient left the ED. iw Signatures: Dispatcher [employer] Candelario Krishnan RN RN sg Williams, Irene, RN RN iw Nieto, Roman, MD MD rn Martinez, Maria 5 Carolynn Parham2 Maria Alejandra Beaver 3 Natalya Fairchild RN RN ca1
--- NOTE | 2019-01-01 15:54 | EDPHYS ---
Physician Documentation [facility] Name: Jaden Kidd Age: 88 yrs Sex: Male : 1930 Arrival Date: 01/01/2019 Time: 14:08 Bed 4 Private MD: ED Physician Abelardo Felder HPI: 01/01 14:19 This 88 yrs old Male presents to ER via EMS with complaints of Head Injury rn With LOC-Adult, Shortness Of Breath, Tremor. 14:20 The patient or guardian reports injury. The complaints affect the right voodoo. Onset: rn The symptoms/episode began/occurred just prior to arrival. Associated signs and symptoms: Loss of consciousness: This patient experience a loss of consciousness, Pertinent positives: loss of conciousness, headache, shortness of breath. Severity of symptoms: At their worst the symptoms were moderate, in the emergency department the symptoms are unchanged. The patient has experienced similar episodes in the past. Family reports a few days of sob, thinks may have taken extra lasix as he is known to do that at times, no recent fever, had syncopal episode today with LOC, takes xarelto, hit arms/head. Reports mild headache, +sob, right rib pain, and pelvic hip pain. . Historical: - Allergies: 14:14 Iodine; sg 14:14 PENICILLINS; sg - PMHx: 14:14 CHF; COPD; macular degeneration; Myocardial infarction; sg - PSHx: 14:14 Hernia repair; cardiac stent; prostatectomy; sg - Immunization history: Last tetanus immunization: unknown. - Family history:: not pertinent. - Hospitalizations: : No recent hospitalization is reported. ROS: 14:20 Constitutional: Negative for fever, chills, and weight loss, Eyes: Negative for injury, rn pain, redness, and discharge, Neck: Negative for injury, pain, and swelling, Cardiovascular: + mild edema Respiratory: + sob, negative for chest pain Abdomen/GI: Negative for abdominal pain, nausea, vomiting, diarrhea, and constipation, Back: Negative for injury and pain, MS/Extremity: + right hip pain Skin: + skin tears to arms and right face Neuro: Negative for headache, weakness, numbness, tingling, and seizure. Exam: 14:20 Constitutional: This is a well developed, well nourished patient who is awake, alert, rn moderate respiratory distress Head/Face: Normocephalic, + abrasion to right voodoo Eyes: Pupils equal round and reactive to light, extra-ocular motions intact. Lids and lashes normal. Conjunctiva and sclera are non-icteric and not injected. Cornea within normal limits. ENT: dry MM, no oral trauma Neck: No midline tenderness Chest/axilla: + right anterolateral mid rib tenderness, no ecchymosis or crepitus. Cardiovascular: Tachycardic, irregular Respiratory: Coarse bilateral breath sounds, worse on right, + moderate tachypnea Abdomen/GI: soft, non-tender, no ecchymosis or masses Back: No spinal tenderness. Skin: Warm, dry, non-pitting edema bilateral lower ext. + skin tears of bilateral posterior elbows R>L, abrasion to right voodoo. NO active bleeding. MS/ Extremity: Pulses equal, no cyanosis. + painful ROM right femur/hip. Neuro: Awake and alert, GCS 15 Vital Signs: 14:14 Pulse 68 MON; Resp 34; Temp 97.7; Pulse Ox 88% on R/A; sg 14:14 BP 132 / 77; sg 14:16 Pulse Ox 96% on 4 lpm NC; sg 15:30 BP 117 / 48; Pulse 112; Resp 17; Temp 97.6(TE); Pulse Ox 94% on 4 lpm NC; mh5 15:37 Weight 89.81 kg (R); iw 16:26 BP 142 / 60; Pulse 70 MON; Resp 20 S; Pulse Ox 98% on R/A; sg [place] Coma Score: 14:14 Eye Response: to voice(3). Verbal Response: oriented(5). Motor Response: obeys sg commands(6). Total: 14. 14:20 Eye Response: spontaneous(4). Verbal Response: oriented(5). Motor Response: obeys rn commands(6). Total: 15. 15:10 Eye Response: to voice(3). Verbal Response: oriented(5). Motor Response: obeys sg commands(6). Total: 14. 15:36 Eye Response: spontaneous(4). Verbal Response: oriented(5). Motor Response: obeys rn commands(6). Total: 15. Trauma Score (Adult): 14:14 Eye Response: to voice(0); Verbal Response: oriented(1); Motor Response: obeys sg commands(2); Systolic BP: > 89 mm Hg(4); Respiratory Rate: 10 to 29 per min(4); [place] Score: 14; Trauma Score: 11 15:10 Eye Response: to voice(0); Verbal Response: oriented(1); Motor Response: obeys sg commands(2); Systolic BP: > 89 mm Hg(4); Respiratory Rate: 10 to 29 per min(4); [place] Score: 14; Trauma Score: 11 MDM: 14:14 Patient medically screened. rn 15:36 Differential diagnosis: Contusion of Hematoma on Intracranial bleed- Concussion rn cerebral contusion, pneumonia, pleural effusion, chf. Data reviewed: vital signs, nurses notes, lab test result(s), EKG, radiologic studies, CT scan, plain films, and as a result, I will admit patient. Counseling: I had a detailed discussion with the patient and/or guardian regarding: the historical points, exam findings, and any diagnostic results supporting the discharge/admit diagnosis, lab results, radiology results, the need for further work-up and treatment in the hospital. ED course: CXR shows asymmetric involvement of right lung concerning for pneumonia, questionable 2 greenstick rib fractures of right ribs where patient is reporting tenderness. Pain meds given. + hypermagnesemia could cause muscle weakness and tremors/twitches, treated with fluids and lasix chaser. Placed on bipap for respiratory distress and tachypnea. Will admit to Dr. Vera. . 01/01 14:16 Order name: Basic Metabolic Panel; Complete Time: 15: rn 01/01 14:16 Order name: CBC with Diff; Complete Time: 14:43 rn 01/01 14:16 Order name: Magnesium; Complete Time: 15:01 rn 01/01 14:16 Order name: NT PRO-BNP; Complete Time: 15:01 rn 01/01 14:16 Order name: PT-INR; Complete Time: 14:43 rn 01/01 14:16 Order name: Troponin (emerg Dept Use Only); Complete Time: 15:01 rn 01/01 14:16 Order name: CT Head C Spine; Complete Time: 15:54 rn 01/01 14:16 Order name: XRAY Chest (1 view) rn 01/01 14:16 Order name: XRAY Pelvis; Complete Time: 15:51 rn 01/01 14:16 Order name: XRAY Femur RIGHT; Complete Time: 15:51 rn 01/01 14:17 Order name: NOVA; Complete Time: 14:43 ca1 01/01 14:17 Order name: Ptt, Activated; Complete Time: 14:51 rn 01/01 15:00 Order name: Blood Culture Adult (2) rn 01/01 15:04 Order name: Procalcitonin; Complete Time: 15:57 rn 01/01 14:16 Order name: IV Start; Complete Time: 14:18 rn 01/01 14:16 Order name: EKG; Complete Time: 14:17 rn 01/01 14:16 Order name: Cardiac monitoring; Complete Time: 14:18 rn 01/01 14:16 Order name: EKG - Nurse/Tech; Complete Time: 15:45 rn 01/01 14:16 Order name: Labs collected and sent; Complete Time: 14:18 rn 01/01 14:16 Order name: O2 Per Protocol; Complete Time: 14:18 rn 01/01 14:16 Order name: O2 Sat Monitoring; Complete Time: 14:18 rn 01/01 14:16 Order name: XRAY Femur LEFT; Complete Time: 15:54 rn 01/01 14:25 Order name: CT Chest Wo Con; Complete Time: 15:25 rn 01/01 15:31 Order name: BIPAP rn Administered Medications: 14:25 Drug: Xopenex (3) 1.25 mg Route: Inhalation; ca1 14:34 Drug: morphine 2 mg {Note: RASS - 0.} Route: IVP; Site: right antecubital; ca1 15:55 Follow up: Response: No adverse reaction; Pain is decreased ca1 15:38 Drug: NS 0.9% 500 ml Route: IV; Rate: bolus; Site: left antecubital; ca1 16:42 Follow up: Response: No adverse reaction; IV Status: Completed infusion; IV Intake: sg 500ml 15:38 Drug: Lasix 40 mg Route: IVP; Site: left antecubital; ca1 17:03 Follow up: Urine output 1700 ml; Response: No adverse reaction sg 15:55 Drug: LevaQUIN 500 mg Volume: 100 ml; Route: IVPB; Infused Over: 60 mins; Site: left ca1 antecubital; 17:02 Follow up: Response: No adverse reaction; IV Status: Completed infusion sg 16:05 Drug: vancoMYCIN 1 grams Route: IVPB; Infused Over: 2 hrs; Site: right antecubital; ca1 17:00 Follow up: Response: No adverse reaction; IV Status: Infusion continued upon admission sg Disposition: 01/01/19 15:54 Hospitalization ordered by Autumn Vera for Inpatient Admission. Preliminary diagnosis are Superficial injury of head, Multi-lobar pneumonia of right lung, Dehydration, Unspecified combined systolic (congestive) and diastolic (congestive) heart failure, Dyspnea, unspecified. - Bed requested for Intensive Care Unit. - Status is Inpatient Admission. iw - Condition is Stable. - Problem is new. - Symptoms have improved. UTI on Admission? No Signatures: Dispatcher [employer] EDMS Estefany Justice Steven, RN RN sg Monica Carrera RN RN iw Abelardo Felder MD MD rn Acumberto, CHRISTIAN Hoang RN ca1 Corrections: (The following items were deleted from the chart) 15:50 14:20 Constitutional: This is a well developed, well nourished patient who is awake, rn alert, moderate respiratory distress Head/Face: Normocephalic, + abrasion to right voodoo Eyes: Pupils equal round and reactive to light, extra-ocular motions intact. Lids and lashes normal. Conjunctiva and sclera are non-icteric and not injected. Cornea within normal limits. ENT: dry MM, no oral trauma rn 15:57 15:54 Hospitalization Ordered by A Jody ALEMAN for Inpatient Admission. Preliminary rn diagnosis is Superficial injury of head; Multi-lobar pneumonia of right lung; Dehydration; Unspecified combined systolic (congestive) and diastolic (congestive) heart failure; Dyspnea, unspecified. Bed requested for Telemetry/MedSurg (Inpatient). Status is Inpatient Admission. Condition is Stable. Problem is new. Symptoms have improved. UTI on Admission? No. rn 16:32 15:57 01/01/2019 15:54 Hospitalization Ordered by A Jody ALEMAN for Inpatient Admission. bd Preliminary diagnosis is Superficial injury of head; Multi-lobar pneumonia of right lung; Dehydration; Unspecified combined systolic (congestive) and diastolic (congestive) heart failure; Dyspnea, unspecified. Bed requested for Intensive Care Unit. Status is Inpatient Admission. Condition is Stable. Problem is new. Symptoms have improved. UTI on Admission? No. rn 17:40 16:32 01/01/2019 15:54 Hospitalization Ordered by A Jody ALEMAN for Inpatient Admission. iw Preliminary diagnosis is Superficial injury of head; Multi-lobar pneumonia of right lung; Dehydration; Unspecified combined systolic (congestive) and diastolic (congestive) heart failure; Dyspnea, unspecified. Bed requested for Intensive Care Unit. Status is Inpatient Admission. Condition is Stable. Problem is new. Symptoms have improved. UTI on Admission? No. bd
[2019-01-01] MEDS ORDERED: VANCOMYCIN 2 GM in NA CHLORIDE 0.9% 500 ML IVPB ONE (16:00)
[2019-01-01] MEDS ORDERED: ONDANSETRON 4 MG/2 ML VIAL IV PRN (16:46)
[2019-01-01] MEDS ORDERED: IPRATROPIUM BROM 0.5MG/2.5ML NEB PRN (16:46)
[2019-01-01] MEDS ORDERED: ALBUTEROL 2.5 MG/3 ML NEB SOL NEB PRN (16:46)
[2019-01-01] MEDS: HYDROCODONE/APAP 7.5/325 MG TAB PO SCH ×2 (19:00→20:01)
[2019-01-01] MEDS: FUROSEMIDE 40 MG/4 ML VIAL IV SCH (20:00)
[2019-01-01] MEDS ORDERED: GABAPENTIN 300 MG CAP PO ONE (21:00)
[2019-01-01] MEDS ORDERED: HOME MED 1 EA UNK (Gabapentin [Gabapentin] 600 MG) PO SCH (21:00)
[2019-01-02] MEDS: HYDROCODONE/APAP 7.5/325 MG TAB PO SCH ×4 (01:00→17:24)
--- NOTE | 2019-01-02 04:36 | HP ---
Date of Admission: 01/01/2019 Chief Complaint: Fall and injury. History Of Present Illness: An 88-year-old male patient who was feeling shaky today and arm and leg was shaking and he lost his balance while walking at home and fell down. Ambulance was called and jaime grayson was brought into the emergency room. Patient did have a head injury and hit the right side of h is chest wall when he fell on the ground in his house. There was no loss of consciousness. After he was evaluated in the emergency room, he was diagnosed as having pneumonia, rib fracture and admitted to the hospital to intensive care unit. He did have some respiratory distress in the emergency room , required treatment with BiPAP and he was admitted to ICU. I saw him in ICU this evening. He is on BiPAP, not in any distress. Medications: List reviewed. Allergies: PENICILLIN AND IODINE. Review of Systems: Musculoskeletal: Right-sided rib cage pain. Cardiovascular: Shortness of breath with activity. All other systems reviewed and negative. 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 Family History: Not pertinent. Social History: Negative for smoking or alcohol use. Past Surgical History: Not pertinent. Physical Examination: Vital Signs: Last temperature 97.6, pulse 70, respiratory rate 20, blood pressure 142/60, oxygen sat uration 98%. Height 5 feet 9 inches, weight 200 pounds. General: Patient appears weaker than normal, not oriented, not in distress, on BiPAP machine in ICU, lying in bed. HEENT: Head atraumatic, normocephalic. Conjunctivae nonerythematous. Sclerae white. Mouth, no thr ush or edema noted. Ears/Nose, no mass, lesion, discharge noted. Neck: Supple. No JVD, lymph nodes, bruit, thyromegaly noted. Lungs: Bilateral good equal air entry. Clear to auscultation. No rhonchi. Presence of some rales noted in the right lung field. Heart: Normal heart sounds, no murmur or gallop. Abdomen: Soft, bowel sounds normal. No guarding, rigidity, tenderness, mass, hepatosplenomegaly, di stention, or bruit noted. Extremities: No leg edema. No calf tenderness. Skin: No rash, ulcer, cellulitis. Lymphatics: No lymph node enlargement in neck, supraclavicular, infraclavicular region. Neuro: No focal neurological deficit. Chest: Unremarkable. External Genitalia: Deferred. Rectal: Deferred. Laboratory Data: White count 12.4, hemoglobin 14.5, platelets 130. INR 1.18. Sodium 142, potassium 3.7, chloride 102, bicarb 34, BUN 111, creatinine 2.53, glucose 114, magnesium 3.2. ProBNP 5521. T roponin 0.16. Procalcitonin 0.24. CAT scan of the chest without contrast shows right lung field int erstitial and alveolar opacities present in all 3 lobes consistent with pneumonia and fracture of rig ht anterior 5th and 6th rib. Pelvis x-ray was negative for any acute fracture. Femur x-ray negative for fracture. CAT scan of the head and cervical spine, no acute changes noted. Impression: 1.Pneumonia. 2.Uremia. 3.Chronic kidney disease, stage 4. 4.Coronary artery disease. 5.Chronic systolic congestive heart failure. 6.Chronic obstructive pulmonary disease. 7.Osteoarthritis, multiple sites. 8.Thrombocytopenia. 9.Anxiety. 10.Depression. Plan: Admit patient to hospital for further evaluation and management of this problem. The patient is appropriate for inpatient and is expected to spend 2 midnights in hospital. We will continue curr ent antibiotics nebulizer treatment, oxygen and BiPAP support. Patient is on Levaquin and vancomycin . Pharmacy consult is in place to help manage vancomycin dosing. Consult Cardiology. I will see dino mejia tomorrow for followup. We will monitor intake and output. He is able to void at this point. No n eed for Burton catheter placement. I will see him tomorrow for followup depending on his condition. We will decide if we can move him out of ICU to regular room or not. I did call the patient's daught er and talked to her in details this evening. We also discussed advanced directive and the patient's daughter has medical power of civil rights attorney and she is requesting DNR order to be in placed. DINO/MODL Voice ID: [id number]
[2019-01-02 04:58] LABS: Absolute Lymphocytes (CBC) 0.7 K/uL (0.7-4.9); Basophils % 0.3 % (0-1.3); Hematocrit 41.4 % (39.6-49.0); Lymphocytes % 9.3 % (15.3-44.8); MPV 10.6 fL (7.6-11.3); RBC Red Blood Cell Count 4.18 M/uL (4.33-5.43)
[2019-01-02 05:07] LABS: Potassium 3.3 mmol/L (3.5-5.1)
[2019-01-02 05:50] LABS: Blood Morphology Comment NOT SEEN (NOT SEEN); Platelet Estimate ADEQ
[2019-01-02] MEDS ORDERED: VANCOMYCIN/NS 1 gm 1 GM/250 ML BAG IVPB SCH (06:00)
--- NOTE | 2019-01-02 07:52 | RAD REPORT ---
EXAM DESCRIPTION: RAD - Chest Single View - 01/02/2019 7:42 am CLINICAL HISTORY: Pneumonia, rib fracture COMPARISON: January [address] chest TECHNIQUE: AP portable chest image was obtained [id number] hours . FINDINGS: Lung volumes are similar to comparison. There has been improved aeration of the right lung base. Interstitial markings in the right upper lobe remain prominent. Cardiomegaly again noted. Uppe r lobe vasculature within normal limits. Pacemaker is in place. No pneumothorax or measurable pleural effusion. No acute bony abnormality seen. No acute aortic findings suspected. IMPRESSION: Partial clearing of right lung base infiltrate. Right upper lobe infiltrate remains. No new or progressive finding.
[2019-01-02] MEDS: CARVEDILOL 3.125 MG TAB PO SCH ×2 (08:25→20:37)
[2019-01-02] MEDS: SACUBITRIL/VALSARTAN 49/51 MG TAB PO SCH ×2 (08:27→20:38)
[2019-01-02] MEDS: GABAPENTIN 300 MG CAP PO SCH ×2 (08:27→20:38)
[2019-01-02] MEDS: FUROSEMIDE 40 MG/4 ML VIAL IV SCH ×2 (08:28→17:22)
[2019-01-02] MEDS ORDERED: Levofloxacin500mg IV 500 MG/100 ML BAG IV SCH (09:00)
[2019-01-02] MEDS ORDERED: POTASSIUM 25 MEQ EFFERV TAB PO ONE (10:25)
--- NOTE | 2019-01-02 10:45 | RAD REPORT ---
EXAM DESCRIPTION: Jose Single View01/01/2019 2:28 pm CLINICAL HISTORY: Chest pain COMPARISON: March 2018 FINDINGS: Mild to moderate patchy right lung opacities. Left lung appears clear of acute infiltrate The heart is moderately enlarged. Pacemaker leads are in place. IMPRESSION: Mild to moderate patchy right lung opacities may represent pneumonia
[2019-01-02] MEDS: POTASSIUM CL SA 10 MEQ TAB PO SCH ×2 (11:00→12:14)
--- NOTE | 2019-01-02 12:14 | EKG ---
Test Date: 2019-01-01 Test Time: 15:42:10 [employer]: MARICRUZ MEASUREMENT RESULTS: Intervals: Rate: 67 WI: QRSD: 162 QT: 594 QTc: 627 Plato: P: WI: QRS: -73 T: 108 INTERPRETIVE STATEMENTS: Ventricular-paced rhythm with frequent premature ventricular complexes Abnormal ECG Compared to ECG 03/14/2018 12:51:14 No significant changes Electronically Signed On 01-02-19 12:09:38 CDT by Ronaldo Ashraf
--- NOTE | 2019-01-02 12:49 | ECHO ---
HEIGHT: 5 ft 9 in WEIGHT: 197 lb 1 oz DATE OF STUDY: 01/02/[address]: Ronaldo sAhraf MD 2-DIMENSIONAL: YES M.MODE: YES DOPPLER: YES COLOR FLOW: YES TDS: NO PORTABLE: NO DEFINITY: NO BUBBLE STUDY: NO DIAGNOSIS: CONGESTIVE HEART FAILURE CARDIAC HISTORY: CATHERIZATION: NO SURGERY: NO PROSTHETIC VALVE: NO PACEMAKER: YES MEASUREMENTS (cm) DIASTOLIC (NORMALS) SYSTOLIC (NORMALS) IVSd 1.3 (0.6-1.2) LA Diam 4.9 (1.9-4.0) LVEF 61% LVIDd 5.1 (3.5-5.7) LVIDs 3.4 (2.0-3.5) %FS 33% LVPWd 1.3 (0.6-1.2) Ao Diam 3.4 (2.0-3.7) 2 DIMENSIONAL ASSESSMENT: RIGHT ATRIUM: NORMAL LEFT ATRIUM: DILATED RIGHT VENTRICLE: PACEMAKER LEFT VENTRICLE: LEFT VENTRICULAR HYPERTROPHY TRICUSPID VALVE: NORMAL MITRAL VALVE: NORMAL PULMONIC VALVE: NORMAL AORTIC VALVE: SCLEROSIS PERICARDIAL EFFUSION: NONE AORTIC ROOT: NORMAL LEFT VENTRICULAR WALL MOTION: NORMAL LEFT VENTRICULAR EJECTION FRACTION. DOPPLER/COLOR FLOW: MILD TRICUSPID REGURGIATION. NORMAL RIGHT VENTRICULAR SYSTOLIC PRESSURE. COMMENTS: LEFT VENTRICULAR HYPERTROPHY. DECREASED LEFT VENTRICULAR COMPLIANCE. NORMAL LEFT VENTRICULAR EJECTION FRACTION. MILD TRICUSPID REGURGIATION. NORMAL RIGHT VENTRICULAR SYSTOLIC PRESSURE. AORTIC SCLEROSIS WITH NO STENOSIS. PACER IN RIGHT VENTRICULAR APEX. TECHNOLOGIST: Brenda ESCOBAR
--- NOTE | 2019-01-02 14:37 | CON ---
Date of Consultation: 01/02/[address] Vera's service on 01/01/2019. I saw the patient on 01/02/2019. Reason For Consultation: Elevated troponin. History Of Present Illness: Mr. Kidd is an 88-year-old male, who has a history of pacemaker defib rillator for congestive heart failure, who had an ejection fraction about 25% in the past. He has hi story of COPD, CAD, status post stent. He has history of macular degeneration. He came in with pneu monia, head injury, loss of consciousness and tremor, had slightly elevated troponin of 0.16 without any rise and fall. He had a BNP of 5521. His white count was 12.4. His creatinine was 2.53. He wa s initially on BiPAP with adequate O2 saturation, but this morning, he is on nasal cannula and is fee ling better. Denied any chest pain. Denied any palpitation. Denied any shocks from his defibrillat or. Allergies: HE IS ALLERGIC TO PENICILLIN, IODINE. Review of Systems: Negative. Social History: Negative. Family History: Negative. Medications: At home include Coreg, Xarelto, Lasix, Entresto, and Neurontin. Physical Examination: General: He was pleasant, alert, oriented x3. Vital Signs: Stable. Afebrile. He was in paced rhythm with occasional PVC. O2 saturations are marry quate. HEENT: Negative. Neck: Supple. No bruit. Chest: Revealed crackles bilaterally. Cardiac: Revealed a paced rhythm. No murmurs, gallops, or rubs. Abdomen: Benign. Extremities: Revealed trace edema. Skin: Dry and intact. Neurologic: He was nonfocal. Diagnostic Data: Stated earlier. Also, he had a CT of his head, which was negative and x-ray of his pelvis, which was negative. CT of the chest and chest x-ray showing pneumonia and old compression f ractures. Impression And Plan: 1.Elevated troponin secondary to hypoxia and chronic congestive heart failure. Repeating an echocar diogram may be reasonable. 2.Renal insufficiency, stage 4. 3.Pneumonia. 4.Old compression fractures. 5.History of chronic systolic congestive heart failure, status post automated implantable cardiovert er-defibrillator and pacemaker. 6.Chronic obstructive pulmonary disease. 7.History of coronary artery disease, status post stent. 8.Allergy to iodine and penicillin. 9.Macular degeneration. The patient is improving on antibiotics. Continue present regimen. Check an echocardiogram. We will continue to follow. HILDA/ELVIS Voice ID: [id number] Report ID: [id number]
[2019-01-02] MEDS: Levofloxacin 250mg IV 250 MG/50 ML BAG IV SCH (17:25)
[2019-01-02] MEDS: MIRTAZAPINE 15 MG TAB PO SCH (20:37)
[2019-01-02] MEDS: RIVAROXABAN 15 MG TABLET PO SCH (20:38)
--- NOTE | 2019-01-02 23:38 | PN ---
Date of Progress Note: 01/02/2019 Subjective: Patient was seen this morning for followup. No new complaints or problems reported by harjit sr. He was lying in bed on BiPAP, not in any distress. Still not completely oriented. He is or iented x2. Objective: Vital Signs: Reviewed. HEENT: Unremarkable. Lungs: No wheezing. No rales but diminished air entry in the right lung martinez compared to the left side. Heart: Sounds normal. Abdomen: Soft. Bowel sounds normal. No guarding, rigidity, tenderness, distention. Extremities: No leg edema. Laboratory Data: White count 7.6, hemoglobin 14.1, platelets 124. Sodium 145, potassium 3.3, chlori de 104, bicarb 34, BUN 101, creatinine 2.02, glucose 169. ProBNP 7011. Impression: 1.Pneumonia. 2.Chronic obstructive pulmonary disease, with acute exacerbation. 3.Uremia. 4.Chronic systolic congestive heart failure. 5.Hypokalemia. Plan: We will go ahead and replace potassium per order. Continue to follow with collections clerk. We w ill follow up on echocardiogram results. Consult Physical Therapy to help ambulate the patient and w e will try to take off BiPAP today and see whether we can maintain adequate oxygenation with nasal ca nnula oxygen. Continue current antibiotics. Depending on patient's condition, we will decide if we can move him out of ICU to [facility] ar room tomorrow or not. DINO/MODL Voice ID: [id number] Report ID: [id number]
[2019-01-03] MEDS: HYDROCODONE/APAP 7.5/325 MG TAB PO SCH ×4 (00:28→18:31)
[2019-01-03 04:28] LABS: Absolute Lymphocytes (CBC) 0.7 K/uL (0.7-4.9); Basophils % 0.1 % (0-1.3); Hematocrit 40.5 % (39.6-49.0); Lymphocytes % 6.9 % (15.3-44.8); MPV 10.2 fL (7.6-11.3); RBC Red Blood Cell Count 4.08 M/uL (4.33-5.43)
[2019-01-03 04:42] LABS: Magnesium 2.8 mg/dL (1.8-2.4); Potassium 3.5 mmol/L (3.5-5.1)
[2019-01-03] MEDS: VANCOMYCIN 1.5 GM in NA CHLORIDE 0.9% 500 ML IVPB SCH (04:56)
[2019-01-03] MEDS: IPRATROPIUM BROM 0.5MG/2.5ML NEB PRN (08:05)
[2019-01-03] MEDS: ALBUTEROL 2.5 MG/3 ML NEB SOL NEB PRN (08:05)
[2019-01-03] MEDS ORDERED: POTASSIUM CL SA 10 MEQ TAB PO ONE (09:00)
[2019-01-03] MEDS: SACUBITRIL/VALSARTAN 49/51 MG TAB PO SCH ×2 (09:39→20:26)
[2019-01-03] MEDS: GABAPENTIN 300 MG CAP PO SCH ×2 (09:39→20:27)
[2019-01-03] MEDS: CARVEDILOL 3.125 MG TAB PO SCH ×2 (09:39→20:27)
[2019-01-03] MEDS: FUROSEMIDE 40 MG/4 ML VIAL IV SCH (09:46)
[2019-01-03] MEDS: Levofloxacin 250mg IV 250 MG/50 ML BAG IV SCH (17:30)
[2019-01-03] MEDS: MIRTAZAPINE 15 MG TAB PO SCH (20:26)
[2019-01-03] MEDS: RIVAROXABAN 15 MG TABLET PO SCH (20:29)
[2019-01-04] MEDS: HYDROCODONE/APAP 7.5/325 MG TAB PO SCH ×4 (00:54→18:09)
--- NOTE | 2019-01-04 01:00 | PN ---
Date of Progress Note: 01/03/2019 Subjective: Patient was seen this morning for followup. No new complaints or problems reported by harjit sr. Lying in bed, on nasal cannula oxygen. We discontinued his BiPAP yesterday morning and sinc e that time, he has done well on nasal cannula oxygen. He has right-sided rib cage pain due to rib f racture. Objective: Vital Signs: Reviewed. HEENT: Unremarkable. Lungs: No rhonchi. No rales. Diminished air entry in the right lung region, unchanged from yesterd ay. Not using accessory muscles of respiration. Heart: Sounds normal. Abdomen: Soft. Bowel sounds normal. No guarding, rigidity, tenderness, or distention. Extremities: No leg edema. Laboratory Data: White count 10.4, hemoglobin 13.8, platelets 127. Sodium 148, potassium 3.5, chlor fartun 107, bicarb 35, BUN 101, creatinine 2.09, glucose 111. Impression: 1.Pneumonia. 2.Chronic obstructive pulmonary disease. 3.Chronic systolic congestive heart failure. 4.Uremia. 5.Coronary artery disease. 6.Right rib fracture, multiple ribs. Plan: We will go ahead and continue current antibiotics and pain medications. Physical therapy to h elp ambulate the patient. Oxygen nebulizer treatment. The patient is medically stable for transfer out of ICU to regular room. See copy of transfer order for more details. We will repeat blood work tomorrow, and I will see him tomorrow for followup. Nurse was advised to apply Medipore, this is a d ressing type of material to the chest wall over and around painful area to try to immobilize the fractured ri b segment to help minimize pain. DINO/MODL Voice ID: [id number] Report ID: [id number]
[2019-01-04 05:41] LABS: Absolute Lymphocytes (CBC) 0.9 K/uL (0.7-4.9); Basophils % 0.7 % (0-1.3); Hematocrit 45.4 % (39.6-49.0); MPV 10.1 fL (7.6-11.3); RBC Red Blood Cell Count 4.59 M/uL (4.33-5.43)
[2019-01-04 05:56] LABS: Magnesium 2.3 mg/dL (1.8-2.4); Potassium 3.5 mmol/L (3.5-5.1)
[2019-01-04] MEDS ORDERED: POTASSIUM CL SA 10 MEQ TAB PO ONE (09:00)
[2019-01-04] MEDS: FUROSEMIDE 40 MG/4 ML VIAL IV SCH (09:47)
[2019-01-04] MEDS: GABAPENTIN 300 MG CAP PO SCH ×2 (09:47→20:38)
[2019-01-04] MEDS: SACUBITRIL/VALSARTAN 49/51 MG TAB PO SCH ×2 (09:48→20:38)
[2019-01-04] MEDS: CARVEDILOL 3.125 MG TAB PO SCH ×2 (09:48→20:38)
--- NOTE | 2019-01-04 10:22 | RAD REPORT ---
EXAM DESCRIPTION: RAD - Chest Pa And Lat (2 Views) - 01/04/2019 9:13 am CLINICAL HISTORY: pneumonia Chest pain. COMPARISON: Chest Single View dated 01/02/2019; Chest Single View dated 01/01/2019; Chest Pa And Lat (2 Views) dated 03/17/2018; Chest Single View dated 03/14/2018 FINDINGS: Emphysematous changes are present throughout the lungs. Slight worsening in right lung bas e infiltrate is seen since 01/02/2019. The heart is mildly enlarged in size with a multi lead pacer/d efibrillator device. No displaced fractures. Small hiatal hernia. IMPRESSION: COPD with mild worsening of right lung base pneumonia since comparative study.
[2019-01-04] MEDS: MORPHINE 2 MG/ML SYR IV PRN ×2 (11:15→23:40)
[2019-01-04] MEDS: Levofloxacin 250mg IV 250 MG/50 ML BAG IV SCH (16:01)
[2019-01-04] MEDS: VANCOMYCIN 1.5 GM in NA CHLORIDE 0.9% 500 ML IVPB SCH (17:46)
[2019-01-04] MEDS: MIRTAZAPINE 15 MG TAB PO SCH (20:37)
[2019-01-04] MEDS: RIVAROXABAN 15 MG TABLET PO SCH (20:38)
[2019-01-05] MEDS: HYDROCODONE/APAP 7.5/325 MG TAB PO SCH ×4 (00:29→18:14)
--- NOTE | 2019-01-05 01:12 | PN ---
Date of Progress Note: 01/04/2019 Subjective: Patient was seen this morning for followup. No new complaints or problems reported by p atient, sitting at bedside, not in any distress. Complaining of right-sided rib cage pain, more toda y than yesterday. Objective: Vital Signs: Reviewed. HEENT: Unremarkable. Lungs: Clear to auscultation. Heart: Sounds normal. Abdomen: Soft. Bowel sounds normal. No guarding, rigidity, tenderness, or distention. Extremities: No leg edema. Laboratory Data: White count 6.2, hemoglobin 15.4, platelets 120. Sodium 146, potassium 3.5, chlori de 108, bicarb 32, BUN 84, creatinine 1.44, glucose 94. Impression: 1.Pneumonia. 2.Chronic systolic congestive heart failure. 3.Coronary artery disease. 4.Uremia, improving. 5.Thrombocytopenia. Plan: Continue current medications, antibiotics, oxygen nebulizer treatment. Continue current Lasix . Renal function is improving and we will follow up on chest x-ray for pneumonia. Physical therapy to continue to ambulate the patient and Social Service consultation was requested to assist patient w ith discharge planning. Possible discharge to go home on Tuesday and Social Service to assist the pat ient with home health care and home physical therapy arrangements. Patient's pain was not well control with hydrocodone today, so morphine was ordered. DINO/ELVIS Voice ID: [id number] Report ID: [id number]
[2019-01-05] MEDS: ALBUTEROL 2.5 MG/3 ML NEB SOL NEB PRN ×2 (05:23→08:20)
[2019-01-05] MEDS: IPRATROPIUM BROM 0.5MG/2.5ML NEB PRN ×2 (05:23→08:20)
[2019-01-05 05:41] LABS: Magnesium 2.3 mg/dL (1.8-2.4); Potassium 3.8 mmol/L (3.5-5.1)
[2019-01-05 05:47] LABS: Absolute Lymphocytes (CBC) 0.9 K/uL (0.7-4.9); Basophils % 0.2 % (0-1.3); Hematocrit 45.7 % (39.6-49.0); Lymphocytes % 15.1 % (15.3-44.8); MPV 10.2 fL (7.6-11.3)
[2019-01-05] MEDS ORDERED: POTASSIUM CL SA 10 MEQ TAB PO ONE (09:00)
[2019-01-05] MEDS: CARVEDILOL 3.125 MG TAB PO SCH ×2 (09:05→20:41)
[2019-01-05] MEDS: GABAPENTIN 300 MG CAP PO SCH ×2 (09:05→20:41)
[2019-01-05] MEDS: FUROSEMIDE 40 MG/4 ML VIAL IV SCH (09:05)
[2019-01-05] MEDS: SACUBITRIL/VALSARTAN 49/51 MG TAB PO SCH ×2 (09:06→20:42)
--- NOTE | 2019-01-05 15:45 | PN ---
Date of Progress Note: 01/05/2019 Patient was seen this morning for followup. No new complaints or problems reported by the patient. Geraldine mayen was sitting at bedside, getting his nebulizer treatment. Denied any new complaints. Yesterday, mo rphine was added for this pain as oral pain medication was not adequately controlling his pain. Objective: Vital Signs: Reviewed. HEENT: Examination unremarkable. Lungs: Clear to auscultation except diminished air entry in the right lung base, not using any acces sam muscles of respiration. Heart: Sounds normal. Abdomen: Soft. Bowel sounds normal. No guarding, rigidity, tenderness, distention. Extremity Exam: No leg edema. Laboratory Data: White count 6.3, hemoglobin 15.5, platelets 160. Sodium 146, potassium 3.8, chlori de 109, bicarb 31, BUN 72, creatinine 1.48, glucose 103. Impression: 1.Pneumonia. 2.Right-sided rib fractures. 3.Uremia, improving. 4.Coronary artery disease. 5.Chronic obstructive pulmonary disease. Plan: We will go ahead and continue current antibiotics. Yesterday's chest x-ray results reviewed. It is possible that increased density noted in the right lung base could be due to some pleural effu negro along with pneumonia. Clinically, patient is improving well as far as pneumonia is concerned. We will continue current antibiotics. Repeat chest x-ray tomorrow and repeat blood work as per order . I will be out of town starting today until Tuesday morning and patient to stay in hospital over the weekend with continuation of current therapy, physical therapy, and possible discharge to go home on Tuesday. I did try to reach out to patient's daughter to give her updates, but I was not able to contact her. Details were discussed with hospitalist physician who will take over this p atient's care in my absence. DINO/MODL Voice ID: [id number] Report ID: [id number]
[2019-01-05] MEDS: Levofloxacin 250mg IV 250 MG/50 ML BAG IV SCH (17:31)
[2019-01-05] MEDS: MIRTAZAPINE 15 MG TAB PO SCH (20:40)
[2019-01-05] MEDS: RIVAROXABAN 15 MG TABLET PO SCH (20:41)
[2019-01-06] MEDS: HYDROCODONE/APAP 7.5/325 MG TAB PO SCH ×4 (00:01→18:08)
[2019-01-06] MEDS: MORPHINE 2 MG/ML SYR IV PRN (01:43)
[2019-01-06] MEDS: VANCOMYCIN 1.5 GM in NA CHLORIDE 0.9% 500 ML IVPB SCH (05:00)
[2019-01-06] MEDS ORDERED: VANCOMYCIN 1 GM/VIAL ONE (05:37)
[2019-01-06] MEDS ORDERED: VANCOMYCIN 500 MG/VIAL ONE (05:37)
[2019-01-06] MEDS ORDERED: NA CHLORIDE 0.9% 500 ML ONE (05:44)
[2019-01-06 07:01] LABS: Potassium 3.4 mmol/L (3.5-5.1)
[2019-01-06] MEDS ORDERED: POTASSIUM 25 MEQ EFFERV TAB PO ONE (09:00)
[2019-01-06] MEDS: GABAPENTIN 300 MG CAP PO SCH ×2 (09:01→20:47)
[2019-01-06] MEDS: SACUBITRIL/VALSARTAN 49/51 MG TAB PO SCH ×2 (09:01→20:47)
[2019-01-06] MEDS: CARVEDILOL 3.125 MG TAB PO SCH ×2 (09:02→20:47)
[2019-01-06] MEDS: FUROSEMIDE 40 MG/4 ML VIAL IV SCH (09:03)
--- NOTE | 2019-01-06 09:26 | P.PN ---
Subjective Date of Service: 01/06/19 (Hospitalist) Chief Complaint: Left-sided shoulder pain Subjective: Improving (Patient's condition is stable admitted with pneumonia eating and drinking) Review of Systems General: Weakness Respiratory: Shortness of Breath Physical Examination - Vital Signs Temperature: 97.9 F Blood Pressure: 119/56 Pulse: 66 Respirations: 18 Pulse Ox (%): 96 - Physical Exam General: Alert, In no apparent distress, Oriented x3 Neck: Supple Respiratory: Crackles/rales (Crackles on the right side) Cardiovascular: No edema, Normal pulses Assessment & Plan - Problems (Diagnosis) (1) Pneumonia Onset Date: 06/13/17 Current Visit: No Status: Acute Plan: Patient is 88 years of age admitted with pneumonia is currently on levofloxacin eating and drinking vital signs oxygenation stable change to p.o. levofloxacin normal white count hypernatremic hypokalemic blood cultures neg patient has diastolic dysfunction or Lasix cultures negative patient is anti coagulated chest x-ray shows minimal changes on the right side repeat PA and lateral chest x-ray
[2019-01-06] MEDS: levoFLOXacin 500 MG TAB PO SCH (10:54)
--- NOTE | 2019-01-06 11:40 | RAD REPORT ---
EXAM DESCRIPTION: Jose Pinon (2 Views)01/06/2019 10:34 am CLINICAL HISTORY: Chest pain COMPARISON: January 04, 2019 FINDINGS: No significant change in the right basilar opacities. Additional bilateral interstitial lung opacities appear chronic The heart is mildly to moderately enlarged. Pacemaker leads are in place. IMPRESSION: No change in the right basilar pneumonia
[2019-01-06] MEDS: MIRTAZAPINE 15 MG TAB PO SCH (20:47)
[2019-01-06] MEDS: RIVAROXABAN 15 MG TABLET PO SCH (20:47)
[2019-01-07] MEDS: HYDROCODONE/APAP 7.5/325 MG TAB PO SCH ×4 (00:04→18:41)
[2019-01-07] MEDS: MORPHINE 2 MG/ML SYR IV PRN ×2 (04:08→08:46)
[2019-01-07 07:21] LABS: Absolute Lymphocytes (CBC) 0.9 K/uL (0.7-4.9); Basophils % 0.5 % (0-1.3); Hematocrit 44.6 % (39.6-49.0); Lymphocytes % 15.8 % (15.3-44.8); MPV 9.9 fL (7.6-11.3)
[2019-01-07 07:35] LABS: Magnesium 2.3 mg/dL (1.8-2.4); Potassium 3.9 mmol/L (3.5-5.1)
[2019-01-07] MEDS: GABAPENTIN 300 MG CAP PO SCH ×2 (08:37→20:22)
[2019-01-07] MEDS: CARVEDILOL 3.125 MG TAB PO SCH ×2 (08:38→20:22)
[2019-01-07] MEDS: SACUBITRIL/VALSARTAN 49/51 MG TAB PO SCH ×2 (08:38→20:22)
[2019-01-07] MEDS: levoFLOXacin 500 MG TAB PO SCH (08:39)
[2019-01-07] MEDS ORDERED: POTASSIUM CL SA 10 MEQ TAB PO ONE (09:00)
[2019-01-07] MEDS ORDERED: ALBUTEROL 2.5 MG/3 ML NEB SOL NEB SCH (10:01)
[2019-01-07] MEDS: ALBUTEROL 2.5 MG/3 ML NEB SOL NEB PRN (10:41)
[2019-01-07] MEDS: IPRATROPIUM BROM 0.5MG/2.5ML NEB SCH ×3 (10:41→19:35)
--- NOTE | 2019-01-07 11:09 | P.PN ---
Subjective Date of Service: 01/07/19 Chief Complaint: Shortness of breath Patient is complaining of shortness of breath and left-sided chest discomfort is coughing wheezing Review of Systems General: Weakness Respiratory: Cough, Shortness of Breath Cardiovascular: Chest Pain Physical Examination - Vital Signs Temperature: 97.1 F Blood Pressure: 110/60 Pulse: 60 Respirations: 16 Pulse Ox (%): 94 - Physical Exam General: Alert, Moderate distress Neck: Supple Respiratory: Expiratory wheezes Cardiovascular: No edema Gastrointestinal: Normal bowel sounds, Soft and benign - Studies Microbiology Data (last 24 hrs): 01/01/19 15:45 Blood - Blood Aerobic Blood Culture - Final No growth in 5 days. 01/01/19 15:45 Blood - Blood Anaerobic Blood Culture - Final 01/01/19 15:21 Blood - Blood Aerobic Blood Culture - Final No growth in 5 days. 01/01/19 15:21 Blood - Blood Anaerobic Blood Culture - Final No growth in 5 days. Assessment & Plan - Problems (Diagnosis) (1) Pneumonia Onset Date: 06/13/17 Current Visit: No Status: Acute Plan: Patient admitted with pneumonia on antibiotics chest x-ray does not show any progression white count normal blood cultures negative he is wheezing I have added some nebulized Atrovent mildly hypernatremic also added some prednisone
[2019-01-07] MEDS: predniSONE 20 MG TAB PO SCH ×2 (12:54→20:22)
[2019-01-07] MEDS: RIVAROXABAN 15 MG TABLET PO SCH (20:23)
[2019-01-07] MEDS: MIRTAZAPINE 15 MG TAB PO SCH (20:23)
[2019-01-08] MEDS: HYDROCODONE/APAP 7.5/325 MG TAB PO SCH ×4 (00:05→18:43)
[2019-01-08] MEDS: IPRATROPIUM BROM 0.5MG/2.5ML NEB SCH ×4 (01:40→19:35)
[2019-01-08 06:21] LABS: Potassium 4.2 mmol/L (3.5-5.1)
[2019-01-08] MEDS: levoFLOXacin 500 MG TAB PO SCH (09:21)
[2019-01-08] MEDS: CARVEDILOL 3.125 MG TAB PO SCH ×2 (09:21→21:07)
[2019-01-08] MEDS: SACUBITRIL/VALSARTAN 49/51 MG TAB PO SCH ×2 (09:21→21:13)
[2019-01-08] MEDS: predniSONE 20 MG TAB PO SCH ×2 (09:21→21:07)
[2019-01-08] MEDS: GABAPENTIN 300 MG CAP PO SCH ×2 (09:21→21:07)
[2019-01-08] MEDS: MORPHINE 2 MG/ML SYR IV PRN ×2 (09:24→22:53)
[2019-01-08] MEDS: ALBUTEROL 2.5 MG/3 ML NEB SOL NEB PRN (14:02)
[2019-01-08] MEDS: RIVAROXABAN 15 MG TABLET PO SCH (21:07)
[2019-01-08] MEDS: MIRTAZAPINE 15 MG TAB PO SCH (21:08)
--- NOTE | 2019-01-09 01:10 | PN ---
Date of Progress Note: 01/08/2019 Subjective: Patient was seen this morning for followup. No new complaints or problems reported by t he patient lying in bed, not in distress. Still has some right-sided rib cage pain, but overall feel s better, looks better compared to last week on Tuesday when I saw him. Objective: Vital Signs: Reviewed. HEENT: Unremarkable. Lungs: Clear to auscultation. No wheezing. No rales. Heart: Sounds normal. Abdomen: Soft. Bowel sounds normal. No guarding, rigidity, tenderness, distention. Extremities: No leg edema. Laboratory Data: Sodium 145, potassium 4.2, chloride 111, bicarb 27, BUN 67, creatinine 1.58, glucos e 141. Yesterday's white count 5.8, hemoglobin 15, platelets 174. Impression: 1.Pneumonia. 2.Right-sided rib fracture. 3.Uremia. 4.Chronic systolic congestive heart failure. Plan: We will go ahead and continue current pain medication. Patient to continue to ambulate with p hysical therapy. Continue current antibiotics which is Levaquin and the patient does not qualify for home oxygen on basis of room air oxygen saturation. Possible discharge to go home tomorrow. Last w [place] on Tuesday, social service consultation was requested to assist with discharge planning and we are awaiting on that arrangements to be completed. Hopefully that should be complete by tomorrow. DINO/ELVIS Voice ID: [id number] Report ID: [id number]
[2019-01-09] MEDS: IPRATROPIUM BROM 0.5MG/2.5ML NEB SCH ×4 (01:30→20:00)
[2019-01-09] MEDS: HYDROCODONE/APAP 7.5/325 MG TAB PO SCH ×4 (01:44→18:01)
[2019-01-09 06:27] VITALS: BMI 29.9
[2019-01-09] MEDS: levoFLOXacin 500 MG TAB PO SCH (08:37)
[2019-01-09] MEDS: GABAPENTIN 300 MG CAP PO SCH ×2 (08:37→20:27)
[2019-01-09] MEDS: CARVEDILOL 3.125 MG TAB PO SCH ×2 (08:38→20:26)
[2019-01-09] MEDS: predniSONE 20 MG TAB PO SCH ×2 (08:38→20:27)
[2019-01-09] MEDS: SACUBITRIL/VALSARTAN 49/51 MG TAB PO SCH ×2 (08:38→20:27)
[2019-01-09] MEDS: RIVAROXABAN 15 MG TABLET PO SCH (20:27)
[2019-01-09] MEDS: MIRTAZAPINE 15 MG TAB PO SCH (20:28)
[2019-01-09 22:56] VITALS: O2SAT 98
[2019-01-09] MEDS: MORPHINE 2 MG/ML SYR IV PRN (23:34)
[2019-01-10] MEDS: HYDROCODONE/APAP 7.5/325 MG TAB PO SCH ×3 (01:00→12:31)
[2019-01-10] MEDS: IPRATROPIUM BROM 0.5MG/2.5ML NEB SCH ×3 (02:00→14:00)
[2019-01-10] MEDS: levoFLOXacin 500 MG TAB PO SCH (08:50)
[2019-01-10] MEDS: SACUBITRIL/VALSARTAN 49/51 MG TAB PO SCH (08:51)
[2019-01-10] MEDS: CARVEDILOL 3.125 MG TAB PO SCH (08:51)
[2019-01-10] MEDS: predniSONE 20 MG TAB PO SCH (08:51)
[2019-01-10] MEDS: GABAPENTIN 300 MG CAP PO SCH (08:51)
[2019-01-10 12:40] VITALS: TEMP 97
[2019-01-10 16:22] VITALS: BP 113/64
--- NOTE | 2019-01-10 18:20 | DS ---
Date of Discharge: 01/10/2019 Disposition: Discharged to go home. Physical Examination: HEENT: Unremarkable. Lungs: Clear to auscultation. Heart: Sounds normal. Abdomen: Soft. Bowel sounds normal. No guarding, rigidity, tenderness, or distention. Extremities: No leg edema. Discharge Medications And Instructions: 1.Continue all prior home medication except reduce dose of furosemide 80 mg, take half a tablet p.o. daily. 2.Take Levaquin 500 mg p.o. daily for 7 days. 3.Follow up at my office this week on . Hospital Course: An 88-year-old male patient admitted to the hospital after he fell down at home. P wiley see dictated H and P for more information. Patient was evaluated in the emergency room when ad mitted to the hospital for pneumonia, uremia, and rib fractures on the right side. Patient was initi ally kept in ICU. His condition improved and subsequently we transferred him out of ICU to regular r oom. He was given antibiotics, pain medication, and Physical Therapy was consulted. He started to a mbulate well. He was given IV diuretic therapy with Lasix. Over period of this hospitalization, his uremia problem improved and pneumonia started showing improvement with antibiotic therapy. Patient' s room air oxygen saturation measured yesterday and today has not shown any significant drop, and he does not qualify for home oxygen, so today he was discharged to go home in stable condition with abov e-mentioned medications and instructions. His echocardiogram done during this hospitalization shows normal ejection fraction. In the past, he had low ejection fraction, so considering this, we will ac tually reduce the dose of furosemide and we will continue to monitor his symptoms as well as renal fu nction on outpatient basis. Final Diagnoses: 1.Pneumonia. 2.Uremia. 3.Chronic kidney disease, stage IV. 4.Coronary artery disease. 5.Chronic systolic congestive heart failure. 6.Chronic obstructive pulmonary disease. 7.Osteoarthritis, multiple sites. 8.Thrombocytopenia. 9.Anxiety. 10.Depression. Laboratory Data: Labs done during this hospitalization on 01/01/2019; initial white count was 12.4, hemoglobin 14.5, and platelet count 139. On 01/07; white count 5.8, hemoglobin 15, platelets 174. H is chemistry, last chemistry yesterday; sodium 145, potassium 4.2, chloride 111, bicarb 27, BUN 67, c reatinine 1.58, glucose 141. When he was first admitted, his magnesium was 3.2, potassium 3.7, BUN 1 11, creatinine 2.53. DINO/MODL Voice ID: [id number] Report ID: [id number]
--- NOTE | 2019-01-11 01:25 | PN ---
Date of Progress Note: 01/09/2019 Subjective: Patient was seen for followup in the morning. No new complaints or problems reported. He was sitting at bedside. Objective: Vital Signs: Reviewed. HEENT: Examination unremarkable. Lungs: Clear to auscultation. No rhonchi or rales. Heart: Sounds normal. Abdomen: Soft. Bowel sounds normal. No guarding, rigidity, tenderness, or distention. Extremities: No leg edema. Impression: 1.Pneumonia. 2.Chronic obstructive pulmonary disease. 3.Chronic systolic congestive heart failure. Plan: Patient has continuous overnight pulse ox monitor and I asked the nursing staff to try to get me print out after downloading information to let me know about what his overnight oxygen saturation was to see whether we can help him qualify for home oxygen or not, but for technical reason this was not possible, so what we will do is we will cancel the discharge that we were originally planning to discharge him today and monitor his oxygen saturation overnight. Respiratory therapist was informed to collect the data download and give me results tomorrow morning so I can make appropriate decisions . DINO/MODL Voice ID: [id number] Report ID: [id number]
--- NOTE | 2019-01-11 05:41 | DS ---
Date of Discharge: 01/10/2019 Disposition: Discharged to go home. DICTATION ENDS HERE DINO/MODSudha Voice ID: [id number] Report ID: [id number]
== END 2019-01-10 17:14 | disposition home health service (06) | DRG 194 ==
LOC: ER 14:02 → ERHOLD 16:02 → 3RD-ICU 16:54 → 2ND 01-03 11:53 → 4TH 01-05 16:17
PROVIDERS: ADMIT Internal Medicine; ATTEND Internal Medicine
DX: J18.9 Pneumonia, unspecified organism (principal); S22.41XA Multiple fractures of ribs, right side, initial encounter for closed fracture; J44.0 Chronic obstructive pulmonary disease with (acute) lower respiratory infection; N18.4 Chronic kidney disease, stage 4 (severe); I50.22 Chronic systolic (congestive) heart failure; E87.0 Hyperosmolality and hypernatremia; W18.30XA Fall on same level, unspecified, initial encounter; Y92.009 Unspecified place in unspecified non-institutional (private) residence as the place of occurrence of the external cause; I25.10 Atherosclerotic heart disease of native coronary artery without angina pectoris; M19.90 Unspecified osteoarthritis, unspecified site; D69.6 Thrombocytopenia, unspecified; F41.8 Other specified anxiety disorders; E87.6 Hypokalemia; Z95.810 Presence of automatic (implantable) cardiac defibrillator; Z95.5 Presence of coronary angioplasty implant and graft; Z88.0 Allergy status to penicillin
CPT/HCPCS: 36415; 70450; 71045; 71046; 71250; 72125; 72170; 80048; 80202; 82962; 83735; 83880; 84132; 84145; 84484; 85025; 85610; 85730; 87040; 93005; 93306; 94640; 94660; 94760; 96365; 96368; 96375; 97110; 97112; 97116; 97161; 97530; 99285; J1940; J2270; J7040; J7512